=== PATIENT | male | born 1950 | race American Indian/Alaskan Native ===

== ENCOUNTER 2018-02-23 10:59 | Emergency (ER) | payer OTHER ==
[~2018-02-23] VITALS: Ht 180.3 cm; Wt 81.7 kg
[~2018-02-23 10:59] MED LIST: ADULT LOW DOSE81 MG; CATAPRES0.2 MG; FOLIC ACID1 MG; HYDROCHLOROTHIA25 MG; MAGNESIUM400 MG; MELOXICAM7.5 MG PO; NORCO 10-325 T1 EACH PO; NORCO 5-325 TA1 EACH PO; OMEPRAZOLE20 MG; PRINIVIL20 MG PO; PROVENTIL HFA6.7 GM INH; VITAMIN D31000 UNIT; ZITHROMAX250 MG PO
--- OUTSIDE RECORDS SUMMARY | 2018-02-23 11:04 | XMS ---
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 [place] VISIT COUNT (12 MO.) 1 [facility] Alessandra Bell [address] [place] [address] TOTAL 3 NOTE: Visits indicate total known visits. 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
== END 2018-02-23 12:52 | disposition home or self-care (01) ==
LOC: ED 10:59
DX: M54.5 Low back pain (principal); R63.4 Abnormal weight loss; I10 Essential (primary) hypertension; F17.200 Nicotine dependence, unspecified, uncomplicated; Z79.899 Other long term (current) drug therapy; Z79.82 Long term (current) use of aspirin
CPT/HCPCS: 71046; 80053; 81001; 83690; 85025; 99284-25

== ENCOUNTER 2019-09-03 11:23 | Emergency (ER) | payer OTHER ==
[~2019-09-03] VITALS: Ht 180.3 cm; Wt 81.7 kg
--- OUTSIDE RECORDS SUMMARY | ~2019-09-03 | XMS | Encounter Summary ---
Demographics + + + | Address | [address] | | | [place] [address] | + + + | Home Phone | | + + + | Preferred Language | Unknown | + + + | Marital Status | | + + + | Evangelical Affiliation | Unknown | + + + | Race | Unknown | + + + | Ethnic Group | Unknown | + + + Author + + + | Author | [facility] | | | and [place] | + + + | Organization | [facility] | | | and [place] | + + + | Address | Unknown | + + + | Phone | Unavailable | + + + Support + + +---------+ + | Name | Relationship | Address | Phone | + + +---------+ + | Natalya Major | ECON | Unknown | | + + +---------+ + Care Team Providers + +------+ + | Care Tube Dispatcher Name | Role | Phone | + +------+ + | Dacia Johnson MD | PCP | | + +------+ + Reason for Referral Diagnostic/Screening (Routine) +--------+--------+ + + + + | Status | Reason | Specialty | Diagnoses / | Referred By | Referred To | | | | | Procedures | Contact | Contact | +--------+--------+ + + + + | Closed | | Radiology | Diagnoses | [place], | [address] | | | | | LUQ | MD Doni | [address] | | | | | abdominal | [address] | [place], | | | | | pain | [address] | [place] [address] | | | | | Procedures | [place], [place] | Phone: | | | | | CT Abdomen | [address] | [phone] | | | | | Pelvis w | Phone: | Fax: | | | | | Contrast | [phone] | [phone] | | | | | CH[address] CT | Fax: | | | | | | SCAN,ABDOMEN | [phone] | | | | | | AND | | | | | | | PELVIS,W | | | | | | | CONTRAST | | | +--------+--------+ + + + + Reason for Visit Diagnostic/Screening (Routine) +--------+--------+ + + + + | Status | Reason | Specialty | Diagnoses / | Referred By | Referred To | | | | | Procedures | Contact | Contact | +--------+--------+ + + + + | Closed | | Radiology | Diagnoses | [place], | [address] | | | | | LUQ | MD Doni | [address] | | | | | abdominal | [address] | [place], | | | | | pain | [address] | [place] [address] | | | | | Procedures | [place], [place] | Phone: | | | | | CT Abdomen | [address] | [phone] | | | | | Pelvis w | Phone: | Fax: | | | | | Contrast | [phone] | [phone] | | | | | CHG CT | Fax: | | | | | | SCAN,ABDOMEN | [phone] | | | | | | AND | | | | | | | PELVIS,W | | | | | | | CONTRAST | | | +--------+--------+ + + + + Encounter Details +--------+ + + + + | Date | Type | Department | Care Team | Description | +--------+ + + + + | 11/17/ | Hospital | [facility] | Doni Mclaughlin MD | LUQ abdominal pain | | 2019 | Encounter | MED CTR [address] | [address] | | | | | [place], | [place], [place] | | | | | [place] [address] | [address] | | | | | [phone] | | | | | | | | +--------+ + + + + Social History + + + +--------+------+ | Tobacco Use | Types | Packs/Day | Years | Date | | | | | Used | | + + + +--------+------+ | Current Every Day | Cigarettes | 0.5 | | | | Smoker | | | | | + + + +--------+------+ + +---+---+---+ | Smokeless Tobacco: | | | | | Never Used | | | | + +---+---+---+ + + +---------+ + | Alcohol Use | Drinks/Week | oz/Week | Comments | + + +---------+ + | Yes | 2 Cans of beer 7 | 9.0 | sometimes at night | | | Glasses of wine | | | + + +---------+ + + + + | Sex Assigned at | Date Recorded | | | | + + + | Not on file | | + + + documented as of this encounter Medications at Time of Discharge + + + +---------+--------+ + | Medication | Sig | Dispensed | Refills | Start | End Date | | | | | | Date | | + + + +---------+--------+ + | cholecalciferol | Take 1,000 Units by | | 0 | | | | (VITAMIN D-3) 1,000 | mouth Daily. | | | | | | units tablet | | | | | | + + + +---------+--------+ + | folic acid 1 mg | Take 1 mg by mouth | | 0 | | | | tablet | Daily. | | | | | + + + +---------+--------+ + | | Take 12.5 mg by | | 0 | | | | hydroCHLOROthiazide | mouth Daily. | | | | | | (HYDRODIURIL) 12.5 | | | | | | | MG tablet | | | | | | + + + +---------+--------+ + | lisinopril | Take 10 mg by mouth | | 0 | | | | (PRINIVIL, ZESTRIL) | Daily. | | | | | | 5 mg tablet | | | | | | + + + +---------+--------+ + | MAGNESIUM OXIDE PO | Take 420 mg by mouth | | 0 | | | | | Daily. | | | | | + + + +---------+--------+ + | omeprazole | Take 20 mg by mouth | | 0 | | | | (PRILOSEC) 20 mg | every morning | | | | | | capsule | (before breakfast). | | | | | + + + +---------+--------+ + | spironolactone | Take 25 mg by mouth | | 0 | | | | (ALDACTONE) 25 mg | Daily. | | | | | | tablet | | | | | | + + + +---------+--------+ + documented as of this encounter Miscellaneous Notes Result QuickNote - Doni Mclaughlin MD - 11/17/2018 2:48 PM PDTPlease call patient or guard nicole with results that CT scan revealed no mass or evidence of malignancy or abdominal wall h ernia. There was evidence of prior left rib fracture which may be contributing to LUQ abdominal pa in. EGD and cscope last year did not reveal a cause of LUQ abdominal pain. He can f/u in GI clinic if pain persists or worsens. Doni Mclaughlin MD docum ented in this encounter Plan of Treatment Not on filedocumented as of this encounter Procedures + +--------+ + + + | Procedure Name | Priori | Date/Time | Associated Diagnosis | Comments | | | ty | | | | + +--------+ + + + | CT ABDOMEN PELVIS W | Routin | 11/17/2018 | LUQ abdominal pain | Results for this | | CONTRAST | e | 10:43 AM | | procedure are in the | | | | PDT | | results section. | + +--------+ + + + documented in this encounter Results CT Abdomen Pelvis w Contrast (11/17/2018 10:43 AM PDT) + + | Specimen | + + | | + + + +-------- -------+ | Narrative | Perform ed At | + +-------- -------+ | EXAM: CT | [facility] | | ABDOMEN PELVIS W CONTRAST dated 11/17/2018 10:43 AM HISTORY:LUQ | | | abdominal pain; rule out left sided upper quadrant hernia Comparison: | | | 07/01/2017 TECHNIQUE: Imaging is performed from the lung bases through | | | the pubic symphysisfollowing the uneventful intravenous administration | | | of 85 mL Omnipaque 350. Automated exposure control, Adjustment of mA | | | and/or kV according to patientsize, and use of iterative | | | reconstruction technique are applied to this exam. DOSE: DLP 478.05 | | | mGy-cm FINDINGS: LUNG BASES: The lung bases are clear. There is | | | no visible pleural effusion orpneumothorax. There is no significant | | | pericardial thickening. There is a smallhiatal hernia. LIVER: The | | | liver is unremarkable in attenuation and enhancement. There are | | | nofocal liver lesions. GALLBLADDER: The gallbladder is not distended. | | | There are no calcifiedgallstones. No visible biliary ductal | | | dilatation. SPLEEN: The spleen is unremarkable. There is no | | | splenomegaly. PANCREAS: The pancreas is unremarkable. The pancreatic | | | duct is not dilated. ADRENALS: No adrenal enlargement. No adrenal | | | masses. KIDNEYS: The kidneys are symmetrically enhancing. There are | | | no focal renallesions. There is no nephrolithiasis. There is no | | | obstructive uropathy. BOWEL: Mild asymmetric thickening of the gastric | | | wall along the greatercurvature. This is probably due to | | | underdistention. There is no evidence forgastrointestinal tract | | | obstruction. There is no evidence for appendicitis. There are a few | | | diverticula. VASCULATURE AND LYMPH NODES: There is no aneurysmal | | | dilatation of the abdominalaorta. There is no pelvic or abdominal | | | lymphadenopathy. There is diffuseatherosclerotic irregularity. | | | This does result in probably moderate narrowingin the left external | | | iliac and mild to moderate on the right. BLADDER: The bladder is | | | unremarkable. BONES: There are no acute osseous abnormalities. There | | | are no suspicious lyticor blastic bone lesions. Healed rib | | | fractures. There is a displaced fracturethrough the costochondral | | | cartilage of the left eighth rib. OTHER: There is no free fluid. | | | There is no free air. IMPRESSION - No abdominal wall hernias. | | | Displaced fracture through the costochondral cartilage of the left | | | eighth rib. This is likely the sequelae of a remote injury. Dictated | | | and Signed by: Antwon Lock MD Electronically signed: 11/17/2018 | | | 12:46 PM | | |There are a few diverticula. | | | | | |VASCULATURE AND LYMPH NODES: There is no aneurysmal dilatation of the abdominal | | |aorta. There is no pelvic or abdominal lymphadenopathy. There is diffuse | | |atherosclerotic irregularity. This does result in probably moderate narrowing | | |in the left external iliac and mild to moderate on the right. | | | | | |BLADDER: The bladder is unremarkable. | | | | | |BONES: There are no acute osseous abnormalities. There are no suspicious lytic | | |or blastic bone lesions. Healed rib fractures. There is a displaced fracture | | |through the costochondral cartilage of the left eighth rib. | | | | | |OTHER: There is no free fluid. There is no free air. | | | | | |IMPRESSION - | | | | | |No abdominal wall hernias. | | | | | |Displaced fracture through the costochondral cartilage of the left eighth rib. | | |This is likely the sequelae of a remote injury. | | | | | |Dictated and Signed by: Antwon Lock MD | | | Electronically signed: 11/17/2018 12:46 PM | | | | | + +-------- -------+ + + | Procedure Note | + + | Sony, Rad Results In - 11/17/2018 12:50 PM PDT EXAM: CT ABDOMEN PELVIS W CONTRAST | | dated 11/17/2018 10:43 AMHISTORY:LUQ abdominal pain; rule out left sided upper quadrant | | herniaComparison: 07/01/2017TECHNIQUE: Imaging is performed from the lung bases through | | the pubic symphysisfollowing the uneventful intravenous administration of 85 mL | | Omnipaque 350. Automated exposure control, Adjustment of mA and/or kV according to | | patientsize, and use of iterative reconstruction technique are applied to this | | exam.DOSE: DLP 478.05 mGy-cmFINDINGS: LUNG BASES: The lung bases are clear. There is | | no visible pleural effusion orpneumothorax. There is no significant pericardial | | thickening. There is a smallhiatal hernia.LIVER: The liver is unremarkable in | | attenuation and enhancement. There are nofocal liver lesions.GALLBLADDER: The | | gallbladder is not distended. There are no calcifiedgallstones. No visible biliary | | ductal dilatation.SPLEEN: The spleen is unremarkable. There is no | | splenomegaly.PANCREAS: The pancreas is unremarkable. The pancreatic duct is not | | dilated.ADRENALS: No adrenal enlargement. No adrenal masses.KIDNEYS: The kidneys are | | symmetrically enhancing. There are no focal renallesions. There is no nephrolithiasis. | | There is no obstructive uropathy.BOWEL: Mild asymmetric thickening of the gastric wall | | along the greatercurvature. This is probably due to underdistention. There is no | | evidence forgastrointestinal tract obstruction. There is no evidence for appendicitis. | | There are a few diverticula.VASCULATURE AND LYMPH NODES: There is no aneurysmal | | dilatation of the abdominalaorta. There is no pelvic or abdominal lymphadenopathy. | | There is diffuseatherosclerotic irregularity. This does result in probably moderate | | narrowingin the left external iliac and mild to moderate on the right.BLADDER: The | | bladder is unremarkable.BONES: There are no acute osseous abnormalities. There are no | | suspicious lyticor blastic bone lesions. Healed rib fractures. There is a displaced | | fracturethrough the costochondral cartilage of the left eighth rib.OTHER: There is no | | free fluid. There is no free air.IMPRESSION - No abdominal wall hernias.Displaced | | fracture through the costochondral cartilage of the left eighth rib. This is likely the | | sequelae of a remote injury.Dictated and Signed by: Antwon Lock MD Electronically | | signed: 11/17/2018 12:46 PM | |ADRENALS: No adrenal enlargement. No adrenal masses. | | | |KIDNEYS: The kidneys are symmetrically enhancing. There are no focal renal | |lesions. There is no nephrolithiasis. There is no obstructive uropathy. | | | |BOWEL: Mild asymmetric thickening of the gastric wall along the greater | |curvature. This is probably due to underdistention. There is no evidence for | |gastrointestinal tract obstruction. There is no evidence for appendicitis. | |There are a few diverticula. | | | |VASCULATURE AND LYMPH NODES: There is no aneurysmal dilatation of the abdominal | |aorta. There is no pelvic or abdominal lymphadenopathy. There is diffuse | |atherosclerotic irregularity. This does result in probably moderate narrowing | |in the left external iliac and mild to moderate on the right. | | | |BLADDER: The bladder is unremarkable. | | | |BONES: There are no acute osseous abnormalities. There are no suspicious lytic | |or blastic bone lesions. Healed rib fractures. There is a displaced fracture | |through the costochondral cartilage of the left eighth rib. | | | |OTHER: There is no free fluid. There is no free air. | | | |IMPRESSION - | | | |No abdominal wall hernias. | | | |Displaced fracture through the costochondral cartilage of the left eighth rib. | |This is likely the sequelae of a remote injury. | | | |Dictated and Signed by: Antwon Lock MD | | Electronically signed: 11/17/2018 12:46 PM | + + + +---------+ + + | Performing | Address | City/State/Zipcode | Phone Number | | Organization | | | | + +---------+ + + | [facility] | | | | + +---------+ + + documented in this encounter Visit Diagnoses + + | Diagnosis | + + | LUQ abdominal pain Abdominal pain, left upper quadrant | + + documented in this encounter Administered Medications + +--------+ +--------+------+------+ | Medication Order | MAR | Action | Dose | Rate | Site | | | Action | Date | | | | + +--------+ +--------+------+------+ | iohexol (OMNIPAQUE 350) 350 | Given | 11/18/19 | 85 mLs | | | | mg/mL injection 85 mL 85 mL, | | 19 10:44 | | | | | Intravenous, ONCE PRN, Other, | | AM PDT | | | | | Starting 11/17/18 at 1043, For | | | | | | | 1 dose, Cat Scanner | | | | | | + +--------+ +--------+------+------+ +---+---+ | | | +---+---+ documented in this encounter"
--- OUTSIDE RECORDS SUMMARY | ~2019-09-03 | XMS | Encounter Summary ---
Demographics + + + | Address | [address] | | | [place] [address] | + + + | Home Phone | | + + + | Preferred Language | Unknown | + + + | Marital Status | | + + + | Yazidi Affiliation | Unknown | + + + | Race | Unknown | + + + | Ethnic Group | Unknown | + + + Author + + + | Author | [facility] | | | and [place] | + + + | Organization | [facility] | | | and [place] | [...] Team Providers + +------+ + | Care Rrt Name | Role | Phone | + +------+ + | Dacia Johnson MD | PCP | | + +------+ + Reason for Visit +---------+--------+ + | Reason | Onset | Comments | | | Date | | +---------+--------+ + | Results | 11/17/ | | | | 2018 | | +---------+--------+ + Encounter Details +--------+ + + + + | Date | Type | Department | Care Team | Description | +--------+ + + + + | 11/17/ | Telephone | [facility] | Doni Mclaughlin MD | Results | | 2019 | | GASTROENTEROLOGY | [address] | | | | | [address] [facility] | [place], [place] | | | | | [address] [place] | [address] | | | | | [address] | [phone] | | | | | [phone] | | | +--------+ + + + [...] + + documented as of this encounter Miscellaneous Notes Telephone Encounter - Jessica Zavala RN - 11/17/2018 4:46 PM PDTCalled and relayed mess age per Dr. Mclaughlin to , Micheline. Okay per . elephone Encounter - Jessica Zavala RN - 11/17/2018 4:43 P M PDT----- Message from Doni Mclaughlin MD sent at 11/17/2018 14:48 PDT ----- Please call patient or guardian with results that CT scan revealed no mass or evidence of m alignancy or abdominal wall hernia. There was evidence of prior left rib fracture which may be contributing to LUQ abdominal pa in. EGD and cscope last year did not reveal a cause of LUQ abdominal pain. He can f/u in GI clinic if pain persists or worsens. Doni Mclaughlin MD doc umented in this encounter Plan of Treatment Not on filedocumented as of this encounter Visit Diagnoses Not on filedocumented in this encounter"
--- OUTSIDE RECORDS SUMMARY | ~2019-09-03 | XMS | Encounter Summary ---
Demographics + + + | Address | [address] | | | [place] [address] | + + + | Home Phone | | + + + | Preferred Language | Unknown | + + + | Marital Status | | + + + | Mormon Affiliation | Unknown | + + + | Race | Unknown | + + + | Ethnic Group | Unknown | + + + Author + + + | Author | [facility] | | | and [place] | + + + | Organization | [facility] | | | and [place] | [...] Team Providers + +------+ + | Care Computer Science Intern Name | Role | Phone | + +------+ + | Dacia Johnson MD | PCP | | + +------+ + Encounter Details +--------+ + + + + | Date | Type | Department | Care Team | Description | +--------+ + + + + | 09/01/ | Imaging | [facility] | Provider, | | | 2019 | Exam | MED CTR EXTERNAL | [address] | | | | | IMAGING [address] | [address] [place] | | | | | [address] | [place] [address] | | | | | [place] [address] | | | | | | [phone] | | | +--------+ + + + + Social History + +-------+ +--------+------+ | Tobacco Use | Types | Packs/Day | Years | Date | | | | | Used | | + +-------+ +--------+------+ | Never Assessed | | | | | + +-------+ +--------+------+ + + + | Sex Assigned at | Date Recorded | | | | + + + | Not on file | | + + + documented as of this encounter Plan of Treatment Not on filedocumented as of this encounter Procedures + +--------+ + + + | Procedure Name | Priori | Date/Time | Associated Diagnosis | Comments | | | ty | | | | + +--------+ + + + | CT ABDOMEN PELVIS W | Routin | 07/01/2017 | | Results for this | | CONTRAST | e | 12:00 AM | | procedure are in the | | | | PDT | | results section. | + +--------+ + + + documented in this encounter Results CT Abdomen Pelvis w Contrast (07/01/2017 12:00 AM PDT) + + | Specimen | + + | | + + + + + | Narrative | Performed At | + + + | External films for comparison only | [facility] | | | | | No results will be in the chart. | | + + + + +---------+ + + | Performing | Address | City/State/Zipcode | Phone Number | | Organization | | | | + +---------+ + + | [facility] | | | | + +---------+ + + documented in this encounter Visit Diagnoses Not on filedocumented in this encounter"
--- OUTSIDE RECORDS SUMMARY | ~2019-09-03 | XMS | Encounter Summary ---
Demographics + + + | Address | [address] | | | [place] [address] | + + + | Home Phone | | + + + | Preferred Language | Unknown | + + + | Marital Status | | + + + | Voodoo Affiliation | Unknown | + + + | Race | Unknown | + + + | Ethnic Group | Unknown | + + + Author + + + | Author | [facility] | | | and [place] | + + + | Organization | [facility] | | | and [place] [...] Team Providers + +------+ + | Care Firer Locomotive Crane Name | Role | Phone | + +------+ + PCP | Unavailable | + +------+ + Encounter Details +--------+ + + + + | Date | Type | Department | Care Team | Description | +--------+ + + + + | 02/12/ | Hospital | [facility] | | | | 1998 | Encounter | MED CTR XRAY [address] | | | | | | [place] | | | | | | [place] [address] | | | | | | [phone] | | | +--------+ + + + [...]
--- OUTSIDE RECORDS SUMMARY | ~2019-09-03 | XMS | Encounter Summary ---
Demographics + + + | Address | [address] | | | [place] [address] | + + + | Home Phone | | + + + | Preferred Language | Unknown | + + + | Marital Status | | + + + | Scientology Affiliation | Unknown | + + + | Race | Unknown | + + + | Ethnic Group | Unknown | + + + Author + + + | Author | [facility] | | | and [place] | + + + | Organization | [facility] | | | and [place] | [...] Team Providers + +------+ + | Care Audio Visual Equipment Rental Clerk Name | Role | Phone | + +------+ + | Unknown, Physician | PCP | | + +------+ + Encounter Details +--------+ + + + + | Date | Type | Department | Care Team | Description | +--------+ + + + + | 02/26/ | Imaging | [facility] | Provider, | | | 2019 | Exam | MED [facility] EXTERNAL | [address] | | | | | IMAGING [address] | [address] | | | | | [address] | [place] [address] | | | | | [place] [address] | | | | | | [phone] | | | +--------+ + + + + Social History + + + +--------+------+ | Tobacco Use | Types | Packs/Day | Years | Date | | | | | Used | | + + + +--------+------+ | Current Every Day | Cigarettes | | | | | Smoker | | | | | + + + +--------+------+ + +---+---+---+ | Smokeless Tobacco: | | | | | Never Used | | | | + +---+---+---+ + + +---------+ + | Alcohol Use | Drinks/Week | oz/Week | Comments | + + +---------+ + | Yes | 2 Cans of anna | 2.0 | sometimes at night | + + +---------+ + + + [...] CT ABDOMEN PELVIS W | Routin | 07/31/2018 | | Results for this | | WO CONTRAST | e | 12:00 AM | | procedure are in the | | | | PDT | | results section. | + +--------+ + + + documented in this encounter Results CT Abdomen Pelvis w wo Contrast (07/31/2018 12:00 AM PDT) + + | Specimen [...]
--- OUTSIDE RECORDS SUMMARY | ~2019-09-03 | XMS | Encounter Summary ---
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 [facility] | | | Lymphocytes | | | [facility] | | | | | | [facility] | | | | | | CENTER - | | | | | | LABORATORY | | + + + + + + | Absolute | 0.7 | 0.0 - 1.0 K/uL | [facility] | | | Monocytes | | | [facility] | | | | | | MEDICAL | | | | | | CENTER - | | | | | | LABORATORY | | + + + + + + | Absolute | 0.2 | 0.0 - 0.4 K/uL | [facility] | | | Eosinophils | | | [facility] | | | | | | [facility] | | | | | | CENTER - | | | | | | LABORATORY | | + + + + + + | Absolute | 0.0 | 0.0 - 0.1 K/uL | [facility] | | | Basophils | | | [facility] | | | | | | [facility] | | | | | | CENTER - | | | | | | LABORATORY | | + + + + + + + + | Specimen | + + | | + + + + + + + | Performing | Address | City/State/Zipcode | Phone Number | | Organization | | | | + + + + + | [facility] | [address] | [place] | [phone] | | [facility] | | [address] | | | - LABORATORY | | | | + + + + + | [facility] | [address] | [place], [place] | | | [facility] | | [address], [facility] | | | - LABORATORY | | | | + + + + + Culture, MRSA (10/23/2010 6:01 PM PDT) + + | Specimen | + + | | + + + + + + + | Performing | Address | City/State/Zipcode | Phone Number | | Organization | | | | + + + + + | [facility] | [address] | [place], [place] | [phone] | | [facility] | | [address] | | | - LABORATORY | | | | + + + + + Urinalysis, Microscopic Only, with Culture if Indicated (10/23/2010 2:18 PM PDT) + +--------+ + + + | Component | Value | Ref Range | Performed | Pathologist | | | | | At | Signature | + +--------+ + + + | COLLECTION | . | | [facility] | | | METHOD 1 | | | [facility] | | | | | | MEDICAL | | | | | | CENTER - | | | | | | LABORATORY | | + +--------+ + + + | White Blood | 2-4 | 0 - 1 /hpf | [facility] | | | Cells, | | | [facility] | | | Urine | | | MEDICAL | | | | | | CENTER - | | | | | | LABORATORY | | + +--------+ + + + | Red Blood | NONE | 0 - 4 /hpf | [facility] | | | Cells, | | | [facility] | | | Urine | | | MEDICAL | | | | | | CENTER - | | | | | | LABORATORY | | + +--------+ + + + | Squamous | NONE | FEW /hps | [facility] | | | Epithelial | | | [facility] | | | Cells, | | | MEDICAL | | | Urine | | | CENTER - | | | | | | LABORATORY | | + +--------+ + + + | Bacteria, | RARE | NONE /hpf | [facility] | | | Urine | | | [facility] | | | | | | MEDICAL | | | | | | CENTER - | | | | | | LABORATORY | | + +--------+ + + + | Amorphous | SLIGHT | /hpf | [facility] | | | Crystals, | | | [facility] | | | Urine | | | MEDICAL | | | | | | CENTER - | | | | | | LABORATORY | | + +--------+ + + + | Hyaline | MANY | 0 - 1 /lpf | [facility] | | | Casts, | | | [facility] | | | Urine | | | MEDICAL | | | | | | CENTER - | | | | | | LABORATORY | | + +--------+ + + + | Culture | NO | | [facility] | | | Indicated | | | [facility] | | | | | | MEDICAL | | | | | | CENTER - | | | | | | LABORATORY | | + +--------+ + + + + + | Specimen | + + | | + + + + + + + | Performing | Address | City/State/Zipcode | Phone Number | | Organization | | | | + + + + + | [facility] | [address] | [place] | [phone] | | [facility] | | [address] | | | - LABORATORY | | | | + + + + + | [facility] | [address] | [place] | | | [facility] | | [address], [facility] | | | - LABORATORY | | | | + + + + + Type and Screen (10/23/2010 12:30 PM PDT) + + + + + + | Component | Value | Ref Range | Performed | Pathologist | | | | | At | Signature | + + + + + + | ABO | BP | | [facility] | | | | | | [facility] | | | | | | MEDICAL | | | | | | CENTER - | | | | | | LABORATORY | | + + + + + + | Antibody | NEGATIVE | | [facility] | | | Screen | | | [facility] | | | | | | MEDICAL | | | | | | CENTER - | | | | | | LABORATORY | | + + + + + + + + | Specimen | + + | | + + + + + + + | Performing | Address | City/State/Zipcode | Phone Number | | Organization | | | | + + + + + | [facility] | [address] | [place], [place] | [phone] | | [facility] | | [address] | | | - LABORATORY | | | | + + + + + | [facility] | [address] | [place], [place] | | | [facility] | | [address] [place] [address] | | | - LABORATORY | | | | + + + + + Rule Out Myocardial (10/23/2010 12:18 PM PDT) + + + + + + | Component | Value | Ref Range | Performed | Pathologist | | | | | At | Signature | + + + + + + | CK TOTAL | 100 | 22 - 269 IU/L | [facility] | | | | | | [facility] | | | | | | MEDICAL | | | | | | CENTER - | | | | | | LABORATORY | | + + + + + + | CK-MB | 2.1Comment: Testing | 0.6 - 6.3 ng/mL | [facility] | | | | performed on the [employer] | | [facility] | | | | [employer] | | MEDICAL | | | | Analyzer. | | CENTER - | | | | | | LABORATORY | | + + + + + + | Troponin I | 0.03Comment: Reference | <0.10 ng/mL | [facility] | | | | Ranges: | | [facility] | | | | 0.00-0.09 = NORMAL | | MEDICAL | | | | 0.10-0.50 | | CENTER - | | | | = | | LABORATORY | | | | INDETERMINATE-SUSPICIOUS | | | | | | FOR | | | | | | | | | | | | NON-INFARCT | | | | | | MYOCARDIAL INJURY | | | | | | >0.50 = | | | | | | CONSISTENT WITH | | | | | | MYOCARDIAL INFARCT | | | | | | Results in the | | | | | | Indeterminate range can | | | | | | reflect a pre-infarct | | | | | | acute coronary | | | | | | syndrome, but can also | | | | | | reflect myocardial | | | | | | necrosis or injury | | | | | | that is not due to | | | | | | coronary artery | | | | | | disease. Some of these | | | | | | causes are sepsis, | | | | | | hypocolemia, atrial | | | | | | fibrillation, heart | | | | | | failure, pulmonary | | | | | | embolism, myocarditis, | | | | | | myocardial contusion, | | | | | | and renal failure. | | | | | | Testing performed on | | | | | | the [employer] | | | | | | Access Analyzer. | | | | + + + + + + + + | Specimen | + + | | + + + + + + + | Performing | Address | City/State/Zipcode | Phone Number | | Organization | | | | + + + + + | [facility] | [address] | [place] | [phone] | | [facility] | | [address] | | | - LABORATORY | | | | + + + + + | [facility] | [address] | [place], [place] | | | [facility] | | [address] [place] [address] | | | - LABORATORY | | | | + + + + + Comprehensive Metabolic Panel (10/23/2010 12:18 PM PDT) + + + + + + | Component | Value | Ref Range | Performed | Pathologist | | | | | At | Signature | + + + + + + | Glucose | 105 | 70 - 109 mg/dL | [facility] | | | | | | [facility] | | | | | | MEDICAL | | | | | | CENTER - | | | | | | LABORATORY | | + + + + + + | Calcium | 9.5 | 8.3 - 10.5 | [facility] | | | | | mg/dL | [facility] | | | | | | MEDICAL | | | | | | CENTER - | | | | | | LABORATORY | | + + + + + + | Alkaline | 83 | 40 - 110 IU/L | [facility] | | | Phosphatase | | | [facility] | | | | | | MEDICAL | | | | | | CENTER - | | | | | | LABORATORY | | + + + + + + | AST | 53 (H) | 10 - 42 IU/L | [facility] | | | | | | [facility] | | | | | | MEDICAL | | | | | | CENTER - | | | | | | LABORATORY | | + + + + + + | ALT | 61 (H) | 6 - 45 IU/L | [facility] | | | | | | [facility] | | | | | | MEDICAL | | | | | | CENTER - | | | | | | LABORATORY | | + + + + + + | Bilirubin | 0.5 | 0.2 - 1.0 mg/dL | [facility] | | | Total | | | [facility] | | | | | | MEDICAL | | | | | | CENTER - | | | | | | LABORATORY | | + + + + + + | Total | 7.5 | 6.0 - 7.8 gm/dL | [facility] | | | Protein | | | [facility] | | | | | | MEDICAL | | | | | | CENTER - | | | | | | LABORATORY | | + + + + + + | Albumin | 4.0 | 3.2 - 5.0 gm/dL | [facility] | | | | | | [facility] | | | | | | MEDICAL | | | | | | CENTER - | | | | | | LABORATORY | | + + + + + + | BUN | 38 (H) | 7 - 18 mg/dL | [facility] | | | | | | [facility] | | | | | | MEDICAL | | | | | | CENTER - | | | | | | LABORATORY | | + + + + + + | Creatinine | 2.82 (H) | 0.60 - 1.30 | [facility] | | | | | mg/dL | [facility] | | | | | | MEDICAL | | | | | | CENTER - | | | | | | LABORATORY | | + + + + + + | Estimated | 23 (L)Comment: For | >60 mL/min/A | [facility] | | | GFR | -Americans, | | [facility] | | | | please multiply the | | MEDICAL | | | | result by 1.210 | | CENTER - | | | | This is an estimated | | LABORATORY | | | | GFR and is based on | | | | | | a standard body | | | | | | mass and serum | | | | | | creatinine | | | | + + + + + + | BUN/Creatin | 13.5 | 12 - 20 | [facility] | | | ine Ratio | | | [facility] | | | | | | MEDICAL | | | | | | CENTER - | | | | | | LABORATORY | | + + + + + + | Na | 133 (L) | 136 - 149 mEq/L | [facility] | | | | | | [facility] | | | | | | MEDICAL | | | | | | CENTER - | | | | | | LABORATORY | | + + + + + + | K | 3.8 | 3.5 - 5.1 mEq/l | [facility] | | | | | | [facility] | | | | | | MEDICAL | | | | | | CENTER - | | | | | | LABORATORY | | + + + + + + | Cl | 97 (L) | 98 - 109 mEq/l | [facility] | | | | | | [facility] | | | | | | MEDICAL | | | | | | CENTER - | | | | | | LABORATORY | | + + + + + + | CO2 | 26 | 24 - 31 mEq/L | [facility] | | | | | | [facility] | | | | | | MEDICAL | | | | | | CENTER - | | | | | | LABORATORY | | + + + + + + | Anion Gap | 13.8 | 6.0 - 17.0 | [facility] | | | | | | [facility] | | | | | | MEDICAL | | | | | | CENTER - | | | | | | LABORATORY | | + + + + + + + + | Specimen | + + | | + + + + + + + | Performing | Address | City/State/Zipcode | Phone Number | | Organization | | | | + + + + + | [facility] | [address] | [place], [place] | [phone] | | [facility] | | [address] | | | - LABORATORY | | | | + + + + + | [facility] | [address] | [place], [place] | | | [facility] | | [address], [facility] | | | - LABORATORY | | | | + + + + + Magnesium (10/23/2010 12:18 PM PDT) + +-------+ + + + | Component | Value | Ref Range | Performed | Pathologist | | | | | At | Signature | + +-------+ + + + | Magnesium | 1.9 | 1.8 - 2.5 mg/dL | [facility] | | | | | | [facility] | | | | | | MEDICAL | | | | | | CENTER - | | | | | | LABORATORY | | + +-------+ + + + + + | Specimen | + + | | + + + + + + + | Performing | Address | City/State/Zipcode | Phone Number | | Organization | | | | + + + + + | [facility] | [address] | [place] | [phone] | | [facility] | | [address] | | | - LABORATORY | | | | + + + + + | [facility] | [address] | [place] | | | [facility] | | [address] | | | - LABORATORY | | | | + + + + + Phosphorus (10/23/2010 12:18 PM PDT) + +---------+ + + + | Component | Value | Ref Range | Performed | Pathologist | | | | | At | Signature | + +---------+ + + + | Phosphorus | 5.1 (H) | 2.5 - 4.6 mg/dL | [facility] | | | | | | [facility] | | | | | | MEDICAL | | | | | | CENTER - | | | | | | LABORATORY | | + +---------+ + + + + + | Specimen | + + | | + + + + + + + | Performing | Address | City/State/Zipcode | Phone Number | | Organization | | | | + + + + + | [facility] | [address] | [place] | [phone] | | [facility] | | [address] | | | - LABORATORY | | | | + + + + + | [facility] | [address] | [place] | | | [facility] | | [address], [facility] | | | - LABORATORY | | | | + + + + + CBC with Differential (10/23/2010 12:17 PM PDT) + + + + + + | Component | Value | Ref Range | Performed | Pathologist | | | | | At | Signature | + + + + + + | White Blood | 8.4 | 4.0 - 11.0 K/uL | [facility] | | | Cells | | | [facility] | | | | | | MEDICAL | | | | | | CENTER - | | | | | | LABORATORY | | + + + + + + | Red Blood | 3.73 (L) | 4.30 - 5.70 | [facility] | | | Cells | | M/uL | [facility] | | | | | | MEDICAL | | | | | | CENTER - | | | | | | LABORATORY | | + + + + + + | Hemoglobin | 11.5 (L) | 13.5 - 18.0 | [facility] | | | | | gm/dL | [facility] | | | | | | MEDICAL | | | | | | CENTER - | | | | | | LABORATORY | | + + + + + + | Hematocrit | 34.4 (L) | 40.0 - 51.0 % | [facility] | | | | | | [facility] | | | | | | MEDICAL | | | | | | CENTER - | | | | | | LABORATORY | | + + + + + + | MCV | 92.1 | 83.0 - 101.0 fL | [facility] | | | | | | [facility] | | | | | | MEDICAL | | | | | | CENTER - | | | | | | LABORATORY | | + + + + + + | MCH | 30.8 | 28.0 - 35.0 pg | [facility] | | | | | | [facility] | | | | | | MEDICAL | | | | | | CENTER - | | | | | | LABORATORY | | + + + + + + | MCHC | 33.4 | 32.0 - 36.0 | [facility] | | | | | g/dL | [facility] | | | | | | MEDICAL | | | | | | CENTER - | | | | | | LABORATORY | | + + + + + + | RDW-CV | 16.7 (H) | <15.0 % | [facility] | | | | | | [facility] | | | | | | MEDICAL | | | | | | CENTER - | | | | | | LABORATORY | | + + + + + + | Platelet | 354 | 140 - 440 K/uL | [facility] | | | Count | | | [facility] | | | | | | MEDICAL | | | | | | CENTER - | | | | | | LABORATORY | | + + + + + + | % | 58.0 | 45 - 75 % | [facility] | | | Neutrophils | | | [facility] | | | | | | MEDICAL | | | | | | CENTER - | | | | | | LABORATORY | | + + + + + + | % | 33.8 | 20 - 45 % | [facility] | | | Lymphocytes | | | [facility] | | | | | | MEDICAL | | | | | | CENTER - | | | | | | LABORATORY | | + + + + + + | % Monocytes | 7.2 | 4 - 12 % | [facility] | | | | | | [facility] | | | | | | MEDICAL | | | | | | CENTER - | | | | | | LABORATORY | | + + + + + + | % | 0.6 | 0 - 5 % | [facility] | | | Eosinophils | | | [facility] | | | | | | MEDICAL | | | | | | CENTER - | | | | | | LABORATORY | | + + + + + + | % Basophils | 0.4 | 0 - 1 % | [facility] | | | | | | [facility] | | | | | | MEDICAL | | | | | | CENTER - | | | | | | LABORATORY | | + + + + + + | Absolute | 4.8 | 1.5 - 6.6 K/uL | [facility] | | | Neutrophils | | | [facility] | | | | | | MEDICAL | | | | | | CENTER - | | | | | | LABORATORY | | + + + + + + | Absolute | 2.8 | 0.6 - 3.2 K/uL | [facility] | | | Lymphocytes | | | [facility] | | | | | | MEDICAL | | | | | | CENTER - | | | | | | LABORATORY | | + + + + + + | Absolute | 0.6 | 0.0 - 1.0 K/uL | [facility] | | | Monocytes | | | [facility] | | | | | | MEDICAL | | | | | | CENTER - | | | | | | LABORATORY | | + + + + + + | Absolute | 0.0 | 0.0 - 0.4 K/uL | [facility] | | | Eosinophils | | | [facility] | | | | | | MEDICAL | | | | | | CENTER - | | | | | | LABORATORY | | + + + + + + | Absolute | 0.0 | 0.0 - 0.1 K/uL | [facility] | | | Basophils | | | [facility] | | | | | | MEDICAL | | | | | | CENTER - | | | | | | LABORATORY | | + + + + + + + + | Specimen | + + | | + + + + + + + | Performing | Address | City/State/Zipcode | Phone Number | | Organization | | | | + + + + + | [facility] | [address] | [place] | [phone] | | [facility] | | [address] | | | - LABORATORY | | | | + + + + + | [facility] | [address] | [place], [place] | | | [facility] | | [address], [facility] | | | - LABORATORY | | | | + + + + + Protime INR (10/23/2010 12:15 PM PDT) + + + + + + | Component | Value | Ref Range | Performed | Pathologist | | | | | At | Signature | + + + + + + | Prothrombin | 12.4 | 11.3 - 13.9 | [facility] | | | Time | | seconds | [facility] | | | | | | MEDICAL | | | | | | CENTER - | | | | | | LABORATORY | | + + + + + + | INR | 0.9Comment: INR: USUAL | 0.9 - 1.1 | [facility] | | | | ORAL ANTICOAGULATION | | [facility] | | | | RANGE | | MEDICAL | | | | 2.0-3.0 | | CENTER - | | | | HIGH LEVEL ORAL | | LABORATORY | | | | ANTICOAGULATION RANGE | | | | | | 2.5-3.5 | | | | + + + + + + + + | Specimen | + + | | + + + + + + + | Performing | Address | City/State/Zipcode | Phone Number | | Organization | | | | + + + + + | [facility] | [address] | [place] | [phone] | | [facility] | | [address] | | | - LABORATORY | | | | + + + + + | [facility] | [address] | [place] | | | [facility] | | [address] | | | - LABORATORY | | | | + + + + + documented in this encounter Visit Diagnoses Not on filedocumented in this encounter
--- OUTSIDE RECORDS SUMMARY | ~2019-09-03 | XMS | Encounter Summary ---
Demographics + + + | Address | [address] | | | [place] [address] | + + + | Home Phone | | + + + | Preferred Language | Unknown | + + + | Marital Status | | + + + | Adventism Affiliation | Unknown | + + + | Race | Unknown | + + + | Ethnic Group | Unknown | + + + Author + + + | Author | [facility] | | | and [place] | + + + | Organization | [facility] | | | and [...] Team Providers + +------+ + | Care News Intern Name | Role | Phone | + +------+ + | Dacia Johnson MD | PCP | | + +------+ + Encounter Details +--------+ + + + + | Date | Type | Department | Care Team | Description | +--------+ + + + + | 07/07/ | Abstract | [facility] | [place], | | | 2017 | | GASTROENTEROLOGY | [address] | | | | | [address] | [place] | | | | | [address] | [place] [address] | | | | | [address] | | | | | | [phone] | | | +--------+ + + + + Social History + +-------+ +--------+------+ | Tobacco Use | Types | Packs/Day | Years | Date | | | | | Used | | + +-------+ +--------+------+ | Never Assessed | | | | | + +-------+ +--------+------+ + + | Comments: Not on File | + + + + + | Sex Assigned at | Date Recorded | | | | + + + | Not on file | | + + + documented as of this encounter Last Filed Vital Signs + + + + + | Vital Sign | Reading | Time Taken | Comments | + + + + + | Blood Pressure | - | - | | + + + + + | Pulse | - | - | | + + + + + | Temperature | - | - | | + + + + + | Respiratory Rate | - | - | | + + + + + | Oxygen Saturation | - | - | | + + + + + | Inhaled Oxygen | - | - | | | Concentration | | | | + + + + + | Weight | 87.1 kg (192 lb) | 07/07/2017 1:51 PM | | | | | PDT | | + + + + + | Height | - | - | | + + + + + | Body Mass Index | - | - | | + + + + + documented in this encounter Plan of Treatment Not on filedocumented as of this encounter Procedures + +--------+ + + + | Procedure Name | Priori | Date/Time | Associated Diagnosis | Comments | | | ty | | | | + +--------+ + + + | EXTERNAL LAB: BUN | Routin | 06/20/2017 | | Results for this | | | e | | | procedure are in the | | | | | | results section. | + +--------+ + + + | EXTERNAL LAB: | Routin | 06/20/2017 | | Results for this | | GLUCOSE | e | | | procedure are in the | | | | | | results section. | + +--------+ + + + | EXTERNAL LAB: PSA | Routin | 06/20/2017 | | Results for this | | | e | | | procedure are in the | | | | | | results section. | + +--------+ + + + | EXTERNAL LAB: ALT | Routin | 06/20/2017 | | Results for this | | | e | | | procedure are in the | | | | | | results section. | + +--------+ + + + | EXTERNAL LAB: AST | Routin | 06/20/2017 | | Results for this | | | e | | | procedure are in the | | | | | | results section. | + +--------+ + + + | EXTERNAL LAB: | Routin | 06/20/2017 | | Results for this | | ALKALINE PHOSPHATASE | e | | | procedure are in the | | | | | | results section. | + +--------+ + + + | EXTERNAL LAB: | Routin | 06/20/2017 | | Results for this | | BILIRUBIN, TOTAL | e | | | procedure are in the | | | | | | results section. | + +--------+ + + + | EXTERNAL LAB: | Routin | 06/20/2017 | | Results for this | | ALBUMIN | e | | | procedure are in the | | | | | | results section. | + +--------+ + + + | EXTERNAL LAB: | Routin | 06/20/2017 | | Results for this | | PROTEIN, TOTAL | e | | | procedure are in the | | | | | | results section. | + +--------+ + + + | EXTERNAL LAB: | Routin | 06/20/2017 | | Results for this | | CALCIUM | e | | | procedure are in the | | | | | | results section. | + +--------+ + + + | EXTERNAL LAB: CARBON | Routin | 06/20/2017 | | Results for this | | DIOXIDE | e | | | procedure are in the | | | | | | results section. | + +--------+ + + + | EXTERNAL LAB: | Routin | 06/20/2017 | | Results for this | | CHLORIDE | e | | | procedure are in the | | | | | | results section. | + +--------+ + + + | EXTERNAL LAB: | Routin | 06/20/2017 | | Results for this | | POTASSIUM | e | | | procedure are in the | | | | | | results section. | + +--------+ + + + | EXTERNAL LAB: SODIUM | Routin | 06/20/2017 | | Results for this | | | e | | | procedure are in the | | | | | | results section. | + +--------+ + + + | EXTERNAL LAB: | Routin | 06/20/2017 | | Results for this | | URINALYSIS | e | | | procedure are in the | | | | | | results section. | + +--------+ + + + | EXTERNAL LAB: CBC | Routin | 06/20/2017 | | Results for this | | | e | | | procedure are in the | | | | | | results section. | + +--------+ + + + | EXTERNAL LAB: TSH | Routin | 06/20/2017 | | Results for this | | | e | | | procedure are in the | | | | | | results section. | + +--------+ + + + | EXTERNAL LAB: | Routin | 06/20/2017 | | Results for this | | TRIGLYCERIDES | e | | | procedure are in the | | | | | | results section. | + +--------+ + + + | EXTERNAL LAB: | Routin | 06/20/2017 | | Results for this | | CHOLESTEROL, HDL | e | | | procedure are in the | | | | | | results section. | + +--------+ + + + | EXTERNAL LAB: | Routin | 06/20/2017 | | Results for this | | CHOLESTEROL, TOTAL | e | | | procedure are in the | | | | | | results section. | + +--------+ + + + | EXTERNAL LAB: | Routin | 06/20/2017 | | Results for this | | CHOLESTEROL, LDL | e | | | procedure are in the | | | | | | results section. | + +--------+ + + + | EXTERNAL LAB: EGFR | Routin | 06/20/2017 | | Results for this | | | e | | | procedure are in the | | | | | | results section. | + +--------+ + + + | EXTERNAL LAB: | Routin | 06/20/2017 | | Results for this | | CREATININE | e | | | procedure are in the | | | | | | results section. | + +--------+ + + + | LIPID PANEL | Routin | 06/20/2017 | | Results for this | | | e | | | procedure are in the | | | | | | results section. | + +--------+ + + + | URINALYSIS, REFLEX | Routin | 06/20/2017 | | Results for this | | MICROSCOPIC AND/OR | e | | | procedure are in the | | CULTURE | | | | results section. | + +--------+ + + + | CBC WITH | Routin | 06/20/2017 | | Results for this | | DIFFERENTIAL | e | | | procedure are in the | | | | | | results section. | + +--------+ + + + | COMPREHENSIVE | Routin | 06/20/2017 | | Results for this | | METABOLIC PANEL | e | | | procedure are in the | | | | | | results section. | + +--------+ + + + documented in this encounter Results External Lab: PSA (06/20/2017) + +-------+ + + + | Component | Value | Ref Range | Performed | Pathologist | | | | | At | Signature | + +-------+ + + + | PSA, | 0.6 | 0 - 4 | EXTERNAL | | | External | | | LAB | | + +-------+ + + + + +---------+ + + | Performing | Address | City/State/Zipcode | Phone Number | | Organization | | | | + +---------+ + + | EXTERNAL LAB | | | | + +---------+ + + External Lab: TSH (06/20/2017) + +-------+ + + + | Component | Value | Ref Range | Performed | Pathologist | | | | | At | Signature | + +-------+ + + + | TSH, | 2.49 | 0.3 - 6 | EXTERNAL | | | External | | | LAB | | + +-------+ + + + + + | Specimen | + + | Blood | + + + +---------+ + + | Performing | Address | City/State/Zipcode | Phone Number | | Organization | | | | + +---------+ + + | EXTERNAL LAB | | | | + +---------+ + + CBC with Differential (06/20/2017) + + + + + + | Component | Value | Ref Range | Performed | Pathologist | | | | | At | Signature | + + + + + + | MCH | 31.3 (A) | 26.0 - 31.0 pg | | | + + + + + + | MCHC | 32.9 | 31.0 - 36.0 % | | | + + + + + + | % Basophils | 0.4 | 0.0 - 2.0 % | | | + + + + + + + + | Specimen | + + | Blood | + + External Lab: CBC (06/20/2017) + +-------+ + + + | Component | Value | Ref Range | Performed | Pathologist | | | | | At | Signature | + +-------+ + + + | WBC, | 4.8 | 3 - 10.6 | EXTERNAL | | | External | | | LAB | | + +-------+ + + + | HGB, | 14.1 | 11.8 - 17.1 | EXTERNAL | | | External | | | LAB | | + +-------+ + + + | HCT, | 42.9 | 36 - 51 | EXTERNAL | | | External | | | LAB | | + +-------+ + + + | PLT, | 236 | 150 - 400 | EXTERNAL | | | External | | | LAB | | + +-------+ + + + | Neutrophils | 50.6 | 44 - 74 | EXTERNAL | | | %, | | | LAB | | | External | | | | | + +-------+ + + + | Lymphocytes | 36.7 | 15 - 42 | EXTERNAL | | | %, | | | LAB | | | External | | | | | + +-------+ + + + | Monocytes | 10.2 | 4 - 13 | EXTERNAL | | | %, External | | | LAB | | + +-------+ + + + | Eosinophils | 1.9 | 0 - 7 | EXTERNAL | | | %, | | | LAB | | | External | | | | | + +-------+ + + + | Neutrophils | 0.5 | 0.2 - 1 | EXTERNAL | | | , Absolute, | | | LAB | | | External | | | | | + +-------+ + + + | Lymphocytes | 1.8 | 0.6 - 3.4 | EXTERNAL | | | , Absolute, | | | LAB | | | External | | | | | + +-------+ + + + | Monocytes, | 0.5 | 0.2 - 1 | EXTERNAL | | | Absolute, | | | LAB | | | External | | | | | + +-------+ + + + | Eosinophils | 0.1 | 0 - 0.5 | EXTERNAL | | | , Absolute | | | LAB | | + +-------+ + + + | Basophils, | 0 | 0 - 0.2 | EXTERNAL | | | Absolute | | | LAB | | + +-------+ + + + | RBC, | 4.51 | 3.86 - 5.7 | EXTERNAL | | | External | | | LAB | | + +-------+ + + + | MCV, | 95 | 81 - 102 | EXTERNAL | | | External | | | LAB | | + +-------+ + + + | RDW, | 14 | 11.2 - 16.2 | EXTERNAL | | | External | | | LAB | | + +-------+ + + + + +---------+ + + | Performing | Address | City/State/Zipcode | Phone Number | | Organization | | | | + +---------+ + + | EXTERNAL LAB | | | | + +---------+ + + Lipid Panel (06/20/2017) + +---------+ + + + | Component | Value | Ref Range | Performed | Pathologist | | | | | At | Signature | + +---------+ + + + | Chol/HDL | 2.6 (A) | 3.7 - 6.7 Ratio | | | | Ratio | | | | | + +---------+ + + + | Non HDL | 109 | 0 - 130 Ratio | | | | Chol. | | | | | | (LDL+VLDL) | | | | | + +---------+ + + + + + | Specimen | + + | Blood | + + Comprehensive Metabolic Panel (06/20/2017) + +-------+ + + + | Component | Value | Ref Range | Performed | Pathologist | | | | | At | Signature | + +-------+ + + + | Globulin | 3.5 | 2.3 - 3.5 g/dL | | | + +-------+ + + + + + | Specimen | + + | Blood | + + External Lab: BUN (06/20/2017) + +-------+ + + + | Component | Value | Ref Range | Performed | Pathologist | | | | | At | Signature | + +-------+ + + + | BUN, | 13 | 7 - 23 | EXTERNAL | | | External | | | LAB | | + +-------+ + + + + +---------+ + + | Performing | Address | City/State/Zipcode | Phone Number | | Organization | | | | + +---------+ + + | EXTERNAL LAB | | | | + +---------+ + + External Lab: Glucose (06/20/2017) + +-------+ + + + | Component | Value | Ref Range | Performed | Pathologist | | | | | At | Signature | + +-------+ + + + | Glucose, | 92 | 71 - 109 | EXTERNAL | | | External | | | LAB | | + +-------+ + + + + +---------+ + + | Performing | Address | City/State/Zipcode | Phone Number | | Organization | | | | + +---------+ + + | EXTERNAL LAB | | | | + +---------+ + + External Lab: ALT (06/20/2017) + +-------+ + + + | Component | Value | Ref Range | Performed | Pathologist | | | | | At | Signature | + +-------+ + + + | ALT, | 35 | 11 - 66 | EXTERNAL | | | External | | | LAB | | + +-------+ + + + + +---------+ + + | Performing | Address | City/State/Zipcode | Phone Number | | Organization | | | | + +---------+ + + | EXTERNAL LAB | | | | + +---------+ + + External Lab: AST (06/20/2017) + +-------+ + + + | Component | Value | Ref Range | Performed | Pathologist | | | | | At | Signature | + +-------+ + + + | AST, | 39 | 15 - 46 | EXTERNAL | | | External | | | LAB | | + +-------+ + + + + +---------+ + + | Performing | Address | City/State/Zipcode | Phone Number | | Organization | | | | + +---------+ + + | EXTERNAL LAB | | | | + +---------+ + + External Lab: Alkaline Phosphatase (06/20/2017) + +-------+ + + + | Component | Value | Ref Range | Performed | Pathologist | | | | | At | Signature | + +-------+ + + + | ALP, | 105 | 45 - 129 | EXTERNAL | | | External | | | LAB | | + +-------+ + + + + +---------+ + + | Performing | Address | City/State/Zipcode | Phone Number | | Organization | | | | + +---------+ + + | EXTERNAL LAB | | | | + +---------+ + + External Lab: Bilirubin, Total (06/20/2017) + +-------+ + + + | Component | Value | Ref Range | Performed | Pathologist | | | | | At | Signature | + +-------+ + + + | Bilirubin, | 0.4 | 0.2 - 1.3 | EXTERNAL | | | Total, | | | LAB | | | External | | | | | + +-------+ + + + + +---------+ + + | Performing | Address | City/State/Zipcode | Phone Number | | Organization | | | | + +---------+ + + | EXTERNAL LAB | | | | + +---------+ + + External Lab: Albumin (06/20/2017) + +-------+ + + + | Component | Value | Ref Range | Performed | Pathologist | | | | | At | Signature | + +-------+ + + + | Albumin, | 4.8 | 3.5 - 5 | EXTERNAL | | | External | | | LAB | | + +-------+ + + + + +---------+ + + | Performing | Address | City/State/Zipcode | Phone Number | | Organization | | | | + +---------+ + + | EXTERNAL LAB | | | | + +---------+ + + External Lab: Protein, Total (06/20/2017) + +---------+ + + + | Component | Value | Ref Range | Performed | Pathologist | | | | | At | Signature | + +---------+ + + + | Protein, | 8.3 (A) | 6.5 - 8.2 | EXTERNAL | | | Total, | | | LAB | | | External | | | | | + +---------+ + + + + +---------+ + + | Performing | Address | City/State/Zipcode | Phone Number | | Organization | | | | + +---------+ + + | EXTERNAL LAB | | | | + +---------+ + + External Lab: Calcium (06/20/2017) + +-------+ + + + | Component | Value | Ref Range | Performed | Pathologist | | | | | At | Signature | + +-------+ + + + | Calcium, | 9.9 | 8.4 - 10.5 | EXTERNAL | | | External | | | LAB | | + +-------+ + + + + +---------+ + + | Performing | Address | City/State/Zipcode | Phone Number | | Organization | | | | + +---------+ + + | EXTERNAL LAB | | | | + +---------+ + + External Lab: Carbon Dioxide (06/20/2017) + +-------+ + + + | Component | Value | Ref Range | Performed | Pathologist | | | | | At | Signature | + +-------+ + + + | Carbon | 28 | 21 - 32 | EXTERNAL | | | Dioxide, | | | LAB | | | External | | | | | + +-------+ + + + + +---------+ + + | Performing | Address | City/State/Zipcode | Phone Number | | Organization | | | | + +---------+ + + | EXTERNAL LAB | | | | + +---------+ + + External Lab: Chloride (06/20/2017) + +--------+ + + + | Component | Value | Ref Range | Performed | Pathologist | | | | | At | Signature | + +--------+ + + + | Chloride, | 95 (A) | 98 - 107 | EXTERNAL | | | External | | | LAB | | + +--------+ + + + + +---------+ + + | Performing | Address | City/State/Zipcode | Phone Number | | Organization | | | | + +---------+ + + | EXTERNAL LAB | | | | + +---------+ + + External Lab: Potassium (06/20/2017) + +-------+ + + + | Component | Value | Ref Range | Performed | Pathologist | | | | | At | Signature | + +-------+ + + + | Potassium, | 5.0 | 3.5 - 5.1 | EXTERNAL | | | External | | | LAB | | + +-------+ + + + + +---------+ + + | Performing | Address | City/State/Zipcode | Phone Number | | Organization | | | | + +---------+ + + | EXTERNAL LAB | | | | + +---------+ + + External Lab: Sodium (06/20/2017) + +-------+ + + + | Component | Value | Ref Range | Performed | Pathologist | | | | | At | Signature | + +-------+ + + + | Sodium, | 134 | 133 - 145 | EXTERNAL | | | External | | | LAB | | + +-------+ + + + + +---------+ + + | Performing | Address | City/State/Zipcode | Phone Number | | Organization | | | | + +---------+ + + | EXTERNAL LAB | | | | + +---------+ + + External Lab: Triglycerides (06/20/2017) + +-------+ + + + | Component | Value | Ref Range | Performed | Pathologist | | | | | At | Signature | + +-------+ + + + | Triglycerid | 100 | 50 - 152 | EXTERNAL | | | es, | | | LAB | | | External | | | | | + +-------+ + + + + + | Specimen | + + | Blood | + + + +---------+ + + | Performing | Address | City/State/Zipcode | Phone Number | | Organization | | | | + +---------+ + + | EXTERNAL LAB | | | | + +---------+ + + External Lab: Cholesterol, HDL (06/20/2017) + +-------+ + + + | Component | Value | Ref Range | Performed | Pathologist | | | | | At | Signature | + +-------+ + + + | HDL | 70 | 35 - 80 mg/dl | EXTERNAL | | | Cholesterol | | | LAB | | | , External | | | | | + +-------+ + + + + + | Specimen | + + | Blood | + + + +---------+ + + | Performing | Address | City/State/Zipcode | Phone Number | | Organization | | | | + +---------+ + + | EXTERNAL LAB | | | | + +---------+ + + External Lab: Cholesterol, Total (06/20/2017) + +-------+ + + + | Component | Value | Ref Range | Performed | Pathologist | | | | | At | Signature | + +-------+ + + + | Cholesterol | 179 | 50 - 200 mg/dl | EXTERNAL | | | , Total, | | | LAB | | | External | | | | | + +-------+ + + + + + | Specimen | + + | Blood | + + + +---------+ + + | Performing | Address | City/State/Zipcode | Phone Number | | Organization | | | | + +---------+ + + | EXTERNAL LAB | | | | + +---------+ + + External Lab: Cholesterol, LDL (06/20/2017) + +-------+ + + + | Component | Value | Ref Range | Performed | Pathologist | | | | | At | Signature | + +-------+ + + + | LDL | 89 | 0 - 130 | EXTERNAL | | | Cholesterol | | | LAB | | | , Direct, | | | | | | External | | | | | + +-------+ + + + + + | Specimen | + + | Blood | + + + +---------+ + + | Performing | Address | City/State/Zipcode | Phone Number | | Organization | | | | + +---------+ + + | EXTERNAL LAB | | | | + +---------+ + + External Lab: eGFR (06/20/2017) + +-------+ + + + | Component | Value | Ref Range | Performed | Pathologist | | | | | At | Signature | + +-------+ + + + | eGFR, | >80 | 60 - 99,999 | EXTERNAL | | | External | | | LAB | | + +-------+ + + + + + | Specimen | + + | Blood | + + + +---------+ + + | Performing | Address | City/State/Zipcode | Phone Number | | Organization | | | | + +---------+ + + | EXTERNAL LAB | | | | + +---------+ + + External Lab: Creatinine (06/20/2017) + +-------+ + + + | Component | Value | Ref Range | Performed | Pathologist | | | | | At | Signature | + +-------+ + + + | Creatinine, | 0.9 | 0.8 - 1.5 | EXTERNAL | | | External | | | LAB | | + +-------+ + + + + + | Specimen | + + | Blood | + + + +---------+ + + | Performing | Address | City/State/Zipcode | Phone Number | | Organization | | | | + +---------+ + + | EXTERNAL LAB | | | | + +---------+ + + Urinalysis, Reflex Microscopic and/or Culture (06/20/2017) + + + + + + | Component | Value | Ref Range | Performed | Pathologist | | | | | At | Signature | + + + + + + | Color | Yellow | | | | + + + + + + | Clarity, | Clear | | | | | Urine | | | | | + + + + + + | Bilirubin, | Negative | Negative | | | | Urine | | | | | + + + + + + | Urobilinoge | <2.0 mg/dL | < 0.2 mg/dL, | | | | n, Urine | | 1.0 mg/dL, 4.0 | | | | | | mg/dL, Normal, | | | | | | 1.0 E.U./dL, | | | | | | 0.2 E.U./dL, | | | | | | 0.2 mg/dL, | | | | | | Negative, 1 | | | | | | mg/dL, <2.0 | | | | | | mg/dL | | | + + + + + + | Nitrite, | Negative | Negative | | | | Urine | | | | | + + + + + + | WBC | <1 | 0 - 5 | | | + + + + + + | Mucus, UA | Rare | | | | + + + + + + + + | Specimen | + + | Urine | + + External Lab: Urinalysis (06/20/2017) + + + + + + | Component | Value | Ref Range | Performed | Pathologist | | | | | At | Signature | + + + + + + | UA Blood, | Negative | | EXTERNAL | | | External | | | LAB | | + + + + + + | UA Ketones, | Negative | | EXTERNAL | | | External | | | LAB | | + + + + + + | UA Ph, | 6.0 | 5 - 8 | EXTERNAL | | | External | | | LAB | | + + + + + + | UA | 30 | | EXTERNAL | | | Proteins, | | | LAB | | | External | | | | | + + + + + + | UA Specific | 1.011 | 1.001 - 1.03 | EXTERNAL | | | [place], | | | LAB | | | External | | | | | + + + + + + | UA | Negative | | EXTERNAL | | | Leukocyte | | | LAB | | | Esterase, | | | | | | External | | | | | + + + + + + + +---------+ + + | Performing | Address | City/State/Zipcode | Phone Number | | Organization | | | | + +---------+ + + | EXTERNAL LAB | | | | + +---------+ + + documented in this encounter Visit Diagnoses Not on filedocumented in this encounter"
--- OUTSIDE RECORDS SUMMARY | ~2019-09-03 | XMS | Encounter Summary ---
Demographics + + + | Address | [address] | | | [place] [address] | + + + | Home Phone | | + + + | Preferred Language | Unknown | + + + | Marital Status | | + + + | Jainism Affiliation | Unknown | + + + | Race | Unknown | + + + | Ethnic Group | Unknown | + + + Author + + + | Author | [facility] | | | and [place] | + + + | Organization | [facility] | | | and [place] [...] Team Providers + +------+ + | Care Specialty Therapist Name | Role | Phone | + +------+ + | Unknown, Physician | PCP | | + +------+ + Encounter Details +--------+ + + + + | Date | Type | Department | Care Team | Description | +--------+ + + + + | 02/23/ | Imaging | [facility] | Provider, | | | 2019 | Exam | [facility] | [facility] [address] | | | | | IMAGING [address] [place] | | | | | [address] | [place] [address] | | | | | [place] [address] | | | | | | [phone] | | | +--------+ + + + [...] | + +--------+ + + + | SALLY NIELSON | Routin | 12/17/2018 | | Results for this | | CHEST | e | 12:00 AM | | procedure are in the | | | | PDT | | results section. | + +--------+ + + + documented in this encounter Results XR Ribs Left w PA Chest (12/17/2018 12:00 AM PDT) + + | Specimen [...]
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
--- OUTSIDE RECORDS SUMMARY | ~2019-09-03 | XMS | Encounter Summary ---
Demographics + + + | Address | [address] | | | [place] [address] | + + + | Home Phone | | + + + | Preferred Language | Unknown | + + + | Marital Status | | + + + | Hindu Affiliation | Unknown | + + + | Race | Unknown | + + + | Ethnic Group | Unknown | + + + Author + + + | Author | [facility] | | | and [place] | + + + | Organization | [facility] | | | and [place] [...] Team Providers + +------+ + | Care Box Stacker Name | Role | Phone | + +------+ + | Dacia Johnson MD | PCP | | + +------+ + Reason for Visit Auth/Cert +--------+--------+ + + + + | Status | Reason | Specialty | Diagnoses / | Referred By | Referred To | | | | | Procedures | Contact | Contact | +--------+--------+ + + + + | | | | Diagnoses | | | | | | | Marijuana | | | | | | | use | | | | | | | (F12.90), | | | | | | | Quesada's | | | | | | | esophagus | | | | | | | determined | | | | | | | by biopsy | | | | | | | (K22.70), Hx | | | | | | | of colonic | | | | | | | polyp | | | | | | | (Z86.010) | | | | | | | Procedures | | | | | | | AR | | | | | | | ESOPHAGOGAST | | | | | | | RODUODENOSCO | | | | | | | PY TRANSORAL | | | | | | | DIAGNOSTIC | | | | | | | AR EGD | | | | | | | TRANSORAL | | | | | | | BIOPSY | | | | | | | SINGLE/MULTI | | | | | | | PLE AR | | | | | | | COLONOSCOPY | | | | | | | FLX DX | | | | | | | W/COLLJ SPEC | | | | | | | WHEN PFRMD | | | | | | | AR | | | | | | | COLONOSCOPY | | | | | | | W/BIOPSY | | | | | | | SINGLE/MULTI | | | | | | | PLE AR | | | | | | | COLSC FLX | | | | | | | W/RMVL OF | | | | | | | TUMOR POLYP | | | | | | | LESION SNARE | | | | | | | TQ AR | | | | | | | ANESTHESIA | | | | | | | COMBINED | | | | | | | UPPER&LOWER | | | | | | | GI | | | | | | | ENDOSCOPIC | | | | | | | PX EGD | | | | | | | COLONOSCOPY | | | +--------+--------+ + + + + Encounter Details +--------+ + + + + | Date | Type | Department | Care Team | Description | +--------+ + + + + | 08/01/ | Hospital | [facility] | Doni Mclaughlin MD | Quesada's esophagus | | 2018 | Encounter | [facility] | [address] | determined by | | | | [address] | [place], [place] | biopsy; Hx of | | | | [place] | [address] | colonic polyp; | | | | [address] | [phone] | Special screening | | | | [phone] | | for malignant | | | | | | neoplasms, colon | +--------+ + + + + Social [...] + + + | Blood Pressure | 140/98 | 08/01/2017 5:45 PM | | | | | PDT | | + + + + + | Pulse | 61 | 08/01/2017 5:45 PM | | | | | PDT | | + + + + + | Temperature | 36.3 C (97.3 F) | 08/01/2017 5:37 PM | | | | | PDT | | + + + + + | Respiratory Rate | 16 | 08/01/2017 3:42 PM | | | | | PDT | | + + + + + | Oxygen Saturation | 99% | 08/01/2017 5:45 PM | | | | | PDT | | + + + + + | Inhaled Oxygen | - | - | | | Concentration | | | | + + + + + | Weight | 86.6 kg (190 lb 14.7 | 08/01/2017 3:42 PM | | | | oz) | PDT | | + + + + + | Height | 180.3 cm (5' 11") | 08/01/2017 3:42 PM | | | | | PDT | | + + + + + | Body Mass Index | 26.63 | 08/01/2017 3:42 PM | | | | | PDT | | + + + + + documented in this encounter Medications at Time of [...] | + + + +---------+--------+ + | aspirin 81 mg EC | Take 81 mg by mouth | | 0 | | | | tablet | Daily. | | | | 9 | + + + +---------+--------+ + | cloNIDine | Take 0.2 mg by mouth | | 0 | | | | (CATAPRES) 0.2 MG | 2 times daily. | | | | 9 | | tablet | | | | | | + + + +---------+--------+ + | selenium sulfide | Apply topically | | 0 | | | | (SELSUN) 2.5% lotion | Daily as needed for | | | | 9 | | | Itching. | | | | | + + + +---------+--------+ + | tamsulosin | Take 0.4 mg by mouth | | 0 | | | | (FLOMAX) 0.4 mg CAPS | daily (after | | | | 9 | | | breakfast). | | | | | + + + +---------+--------+ + documented as of this encounter Miscellaneous Notes D-C Instructions Provation - Doni Mclaughlin MD - 08/01/2017 4:56 PM PDTDischarge Instruct ions for Upper Endoscopy Patient: Davi Major : 1950 Acct: [id number] Exam Date: Tuesday, August 01, 2017 Doctor: Doni Mclaughlin MD The chances of difficulty following this procedure are minimal. The following instructions will assist you in your recovery. 1. Do Not eat or drink anything for 1 hour. Try sips of water first. If tolerated, resume your regular diet or one recommended by your physician. 2. Do not drive, operate machinery, make critical decisions, or do activities that require coordination or balance for 24 hours. 3. You may experience a sore throat for 24 - 48 hours. You may use throat lozenges or gargle with warm salt water to relieve the discomfort. 4. Because air was put into your stomach druing the procedure, you may experience some belching. 5. Do not use any medication containing aspirin for 10 days, unless otherwise directed by your physician. 6. Sometimes the medications given to you druing the exam can aggravate the veins. The chemical irritation can cause inflammation or pain along the arm with redness, swelling and warmth. This does not mean there is an infection. You can treat the affected area by applying warm, wet compresses (towels) 4 times a day for 20 minutes at a time until inflammation is resolved 7. Report to your doctor: Chills and/or fever over 100 Persistent vomiting or vomiting with blood/nasal regurgitation Severe abdominal pain, other than gas cramps Severe chest pain Black, tarry stools You may reach your physician at Work: . If unable to reach your physician, call [facility] Emergency Department at [phone] Your doctor recommends these additional instructions: You have a contact number available for emergencies. The signs and symptoms of potential delayed complications were discussed with you. You may return to normal activities tomorrow. Written discharge instructions were provided to you. Resume your previous diet. Continue your present medications. We are waiting for your pathology results. Your physician has recommended a repeat upper endoscopy for surveillance based on pathology results. Return to your GI clinic as needed. Do not take any aspirin, ibuprofen (including Advil, Motrin or Nuprin), naproxen (including Aleve), or any other non-steroidal anti-inflammatory drugs. The findings and recommendations have been discussed with you. These instructions have been explained to the patient and/or escort. A copy has been given to the patient/escort. Nurse Signature Patient Signature Escort Signature Date Doni Mclaughlin MD 08/01/2017 5:29:25 PM This report has been signed electronically.Electronically signed by Doni Mclaughlin MD at 5:29 PM PDTD-C Instructions Provation - Doni Mclaughlin MD - 08/01/2017 4:56 PM P DTDischarge Instructions for Colonoscopy Exams Patient: Davi Major : 1950 Acct: [id number] Exam Date: Tuesday, August 01, 2017 Doctor: Doni Mclaughlin MD You have had an examination of the gastrointestinal tract. The chances of difficulty following this procedure are minimal. The following instructions will assist you in your recovery. ACTIVITIES: Rest quietly until sedation wears off. DO NOT drive a motor vehicle or operate machinery for 24 hours after sedation. Be cautious making critical decisions for 24 hours after sedation. DIET: If throat has been sprayed, do not eat or drink for 1 hour after. Start with a swallow of tap water, if you experience any lack of sensation in your throat, wait another 30 - 60 minutes and start with water again. Once swallowing has returned to normal you may resume your usual diet unless otherwise instructed by your physician. DISCOMFORT: If you had a bowel exam, you may have some abdominal discomfort from the air put into your bowel during the exam. Moving about will help you pass this air. Sometimes the medications given to you during the exam can aggravate the veins. The chemical irritation can cause inflammation or pain along the arm with redness, swelling and warmth. This does not mean there is an infection. You can treat the affected area by applying warm,wet compresses (towels) 4 times a day for 20 minutes at a time until inflammation is resolved. REPORT TO YOUR DOCTOR: Unusual abdominal pain Chest pain or unusual shortness of breath Shoulder pain Nausea, vomiting Fever over 100 degrees, chills Signs of rectal bleeding (red or black stools) Any concern you have resulting from procedure You may reach your physician at Work: . If unable to reach your physician, call [facility] Emergency Department at [phone] Your doctor recommends these additional instructions: You have a contact number available for emergencies. The signs and symptoms of potential delayed complications were discussed with you. You may return to normal activities tomorrow. Written discharge instructions were provided to you. Resume your previous diet. Continue your present medications. Your physician has recommended a repeat colonoscopy in 10 years for screening purposes. Return to your GI clinic as needed. The findings and recommendations have been discussed with you. These instructions have been explained to the patient and/or escort. A copy has been given to the patient/escort. Nurse Signature Patient Signature Escort Signature Date Doni Mclaguhlin MD 08/01/2017 5:31:11 PM This report has been signed electronically.Electronically signed by Doni Mclaughlin MD at 5:31 PM PDTdocumented in this encounter Plan of Treatment Not on filedocumented as of this encounter Procedures + +--------+ + + + | Procedure Name | Priori | Date/Time | Associated Diagnosis | Comments | | | ty | | | | + +--------+ + + + | COLONOSCOPY | | 08/01/2017 | Marijuana use | | | | | 4:58 PM | (F12.90), Quesada's | | | | | PDT | esophagus determined | | | | | | by biopsy (K22.70), | | | | | | Hx of colonic polyp | | | | | | (Z86.010) | | + +--------+ + + + | EGD | | 08/01/2017 | Marijuana use | | | | | 4:58 PM | (F12.90), Quesada's | | | | | PDT | esophagus determined | | | | | | by biopsy (K22.70), | | | | | | Hx of colonic polyp | | | | | | (Z86.010) | | + +--------+ + + + | EGD | Routin | 08/01/2017 | | Results for this | | | e | 4:56 PM | | procedure are in the | | | | PDT | | results section. | + +--------+ + + + | COLONOSCOPY | Routin | 08/01/2017 | | Results for this | | | e | 4:56 PM | | procedure are in the | | | | PDT | | results section. | + +--------+ + + + | SURGICAL PATHOLOGY | Routin | 08/01/2017 | | Results for this | | EXAM | e | 12:00 AM | | procedure are in the | | | | PDT | | results section. | + +--------+ + + + documented in this encounter Results EGD (08/01/2017 4:56 PM PDT) + + | Specimen | + + | | + + + + -+ | Narrative | Performed At | + + -+ | | [facility] | | GastroenterologyPatient Name: Davi MajorProcedure Date: 08/01/2017 | [facility] | | 4:56 PMMRN: [id number] #: [id number] of : | | | 9Admit Type: AmbulatoryAge: 67Room: [place] [address]Gender: MaleNote | | | Status: FinalizedAttending MD: Doni Mclaughlin , [facility]cedure: | | | Upper GI endoscopyIndications: Follow-up of Quesada's | | | esophagusProviders: Doni Mclaughlin MD, Gudelia Ramos, | | | RN, Ying Hay, Hogshead Builder, [facility]. | | | MD Dorothy (Anesthesia Staff)Medicines: Monitored | | | Anesthesia CareComplications: No immediate | | | complications.Procedure: Pre-Anesthesia Assessment: - | | | Prior to the procedure, a History and Physical was performed, and | | | patient medications and allergies were reviewed. The patient is | | | competent. The risks and benefits of the procedure and the | | | sedation options and risks were discussed with the patient. All | | | questions were answered and informed consent was obtained. | | | Patient identification and proposed procedure were verified by | | | the physician, the nurse, the anesthesiologist and the | | | motorsports technician in the pre-procedure area in the procedure room. | | | Mental Status Examination: alert and oriented. Airway | | | Examination: normal oropharyngeal airway and neck mobility. | | | Respiratory Examination: clear to auscultation. CV Examination: | | | normal. Prophylactic Antibiotics: The patient does not require | | | prophylactic antibiotics. Prior Anticoagulants: The patient | | | has taken no previous anticoagulant or antiplatelet agents. ASA | | | Grade Assessment: III - A patient with severe systemic | | | disease. After reviewing the risks and benefits, the patient | | | was deemed in satisfactory condition to undergo the procedure. The | | | anesthesia plan was to use monitored anesthesia care (MAC). | | | Immediately prior to administration of medications, the patient | | | was re-assessed for adequacy to receive sedatives. The heart | | | rate, respiratory rate, oxygen saturations, blood pressure, | | | adequacy of pulmonary ventilation, and response to care were | | | monitored throughout the procedure. The physical status of the | | | patient was re-assessed after the procedure. After obtaining | | | informed consent, the endoscope was passed under direct vision. | | | Throughout the procedure, the patient's blood pressure, pulse, | | | and oxygen saturations were monitored continuously. The Endoscope was | | | introduced through the mouth, and advanced to the third part | | | of duodenum. The upper GI endoscopy was accomplished without | | | difficulty. The patient tolerated the procedure well.Findings: | | | There were esophageal mucosal changes consistent with | | | short-segment Quesada's esophagus present in the lower third of | | | the esophagus. The maximum longitudinal extent of these | | | mucosal changes was 1 cm in length. Mucosa was biopsied with a | | | cold forceps for histology. One specimen bottle was sent to | | | pathology. Verification of patient identification for the | | | specimen was done by the physician and nurse using the patient's | | | name and date. Estimated blood loss was minimal. A | | | small hiatal hernia was present. Diffuse mildly erythematous | | | mucosa without bleeding was found in the stomach. Biopsies were | | | taken with a cold forceps for histology. Verification of | | | patient identification for the specimen was done by the | | | physician and nurse using the patient's name and date. Estimated | | | blood loss was minimal. No other significant | | | abnormalities were identified in a careful examination of the | | | stomach. The cardia and gastric fundus were normal on | | | retroflexion. The examined duodenum was normal.Impression: | | | - Esophageal mucosal changes consistent with short-segment Quesada's | | | esophagus. Biopsied. - Small hiatal hernia. - | | | Erythematous mucosa in the stomach. Biopsied. - Normal examined | | | duodenum.Recommendation: - Patient has a contact number | | | available for emergencies. The signs and symptoms of potential | | | delayed complications were discussed with the patient. Return | | | to normal activities tomorrow. Written discharge instructions | | | were provided to the patient. - Resume previous diet. - | | | Continue present medications. - Await pathology results. - | | | Repeat upper endoscopy for surveillance based on pathology results. | | | - Return to GI clinic PRN. - No aspirin, ibuprofen, | | | naproxen, or other non-steroidal anti-inflammatory drugs. | | | - The findings and recommendations were discussed with the | | | patient.Doni Mclaughlin MD08/01/2017 5:29:25 PMThis report has been | | | signed electronically.Number of Addenda: 0Note Initiated On: 08/01/2017 | | | 4:56 PMTotal Procedure Duration: 0 hours 5 minutes 55 seconds Scope | | | In: 5:05:04 PMScope Out: 5:10:59 PM [facility] | | | [place], [address] [place] [id number] | | | - Resume previous diet. | | | - Continue present medications. | | | - Await pathology results. | | | - Repeat upper endoscopy for surveillance based on pathology results. | | | - Return to GI clinic PRN. | | | - No aspirin, ibuprofen, naproxen, or other non-steroidal | | | anti-inflammatory drugs. | | | - The findings and recommendations were discussed with the patient. | | |Doni Mclaughlin MD | | |08/01/2017 5:29:25 PM | | |This report has been signed electronically. | | |Number of Addenda: 0 | | |Note Initiated On: 08/01/2017 4:56 PM | | |Total Procedure Duration: 0 hours 5 minutes 55 seconds | | |Scope In: 5:05:04 PM | | |Scope Out: 5:10:59 PM | | | [facility], [address] [facility], [place], [place] | | | [address] | | + + -+ + +---------+ + + | Performing | Address | City/State/Zipcode | Phone Number | | Organization | | | | + +---------+ + + | [facility] | | | | + +---------+ + + COLONOSCOPY (08/01/2017 4:56 PM PDT) + + | Specimen | + + | | + + + + -+ | Narrative | Performed At | + + -+ | | [facility] | | GastroenterologyPatient Name: Davi MajorProcedure Date: 08/01/2017 | [place] | | 4:56 PMMRN: [id number] #: [id number] of : | | | 9Admit Type: AmbulatoryAge: 67Room: [facility] 01Gender: MaleNote | | | Status: FinalizedAttending MD: Doni Mclaughlin , [facility]rocedure: | | | ColonoscopyIndications: Screening for colorectal | | | malignant neoplasm, High risk colon cancer | | | surveillance: Personal history of colonic | | | polypsProviders: Doni Mclaughlin MD, Gudelia Ramos, | | | RNYing, [employer]ogshead Builder, [facility] | | | MD Dorothy (Anesthesia Staff)Medicines: Monitored | | | Anesthesia CareComplications: No immediate | | | complications.Procedure: Pre-Anesthesia Assessment: - | | | Prior to the procedure, a History and Physical was performed, and | | | patient medications and allergies were reviewed. The patient is | | | competent. The risks and benefits of the procedure and the | | | sedation options and risks were discussed with the patient. All | | | questions were answered and informed consent was obtained. | | | Patient identification and proposed procedure were verified by | | | the physician, the nurse, the anesthesiologist and the | | | motorsports technician in the pre-procedure area in the procedure room. | | | Mental Status Examination: alert and oriented. Airway | | | Examination: normal oropharyngeal airway and neck mobility. | | | Respiratory Examination: clear to auscultation. CV Examination: | | | normal. Prophylactic Antibiotics: The patient does not require | | | prophylactic antibiotics. Prior Anticoagulants: The patient | | | has taken no previous anticoagulant or antiplatelet agents. ASA | | | Grade Assessment: III - A patient with severe systemic | | | disease. After reviewing the risks and benefits, the patient | | | was deemed in satisfactory condition to undergo the procedure. The | | | anesthesia plan was to use monitored anesthesia care (MAC). | | | Immediately prior to administration of medications, the patient | | | was re-assessed for adequacy to receive sedatives. The heart | | | rate, respiratory rate, oxygen saturations, blood pressure, | | | adequacy of pulmonary ventilation, and response to care were | | | monitored throughout the procedure. The physical status of the | | | patient was re-assessed after the procedure. After I obtained | | | informed consent, the scope was passed under direct vision. | | | Throughout the procedure, the patient's blood pressure, pulse, | | | and oxygen saturations were monitored continuously. The Colonoscope | | | was introduced through the anus and advanced to the cecum, | | | identified by appendiceal orifice and ileocecal valve. The | | | colonoscopy was performed without difficulty. The patient | | | tolerated the procedure well. The quality of the bowel | | | preparation was good.Findings: The perianal and digital rectal | | | examinations were normal. The colon (entire examined portion) | | | appeared normal. The retroflexed view of the distal rectum and | | | anal verge was normal and showed no anal or rectal | | | abnormalities.Impression: - The entire examined colon is normal. | | | - The distal rectum and anal verge are normal on retroflexion | | | view. - No specimens collected.Recommendation: - Patient | | | has a contact number available for emergencies. The signs and | | | symptoms of potential delayed complications were discussed with the | | | patient. Return to normal activities tomorrow. Written discharge | | | instructions were provided to the patient. - Resume | | | previous diet. - Continue present medications. - Repeat | | | colonoscopy in 10 years for screening purposes. - Return to GI | | | clinic PRN. - The findings and recommendations were discussed | | | with the patient.Doni Mclaughlin MD08/01/2017 5:31:11 PMThis report | | | has been signed electronically.Number of Addenda: 0Note Initiated On: | | | 08/01/2017 4:56 PMScope Withdrawal Time: 0 hours 7 minutes 17 seconds | | | Total Procedure Duration: 0 hours 14 minutes 42 seconds Scope In: | | | 5:13:02 PMScope Out: 5:27:44 PM [facility] | | | [place], [address] [place] [id number] | | | - Resume previous diet. | | | - Continue present medications. | | | - Repeat colonoscopy in 10 years for screening purposes. | | | - Return to GI clinic PRN. | | | - The findings and recommendations were discussed with the patient. | | |Doni Mclaughlin MD | | |08/01/2017 5:31:11 PM | | |This report has been signed electronically. | | |Number of Addenda: 0 | | |Note Initiated On: 08/01/2017 4:56 PM | | |Scope Withdrawal Time: 0 hours 7 minutes 17 seconds | | |Total Procedure Duration: 0 hours 14 minutes 42 seconds | | |Scope In: 5:13:02 PM | | |Scope Out: 5:27:44 PM | | | [facility], [address] [place] [address] | | | [id number] | | + + -+ + +---------+ + + | Performing | Address | City/State/Zipcode | Phone Number | | Organization | | | | + +---------+ + + | [facility] | | | | + +---------+ + + Surgical Pathology Exam (08/01/2017 12:00 AM PDT) + + | Specimen | + + | | + + + + + | Narrative | Performed At | + + + | SPECIMEN(S): A GASTRIC BIOPSY SPECIMEN(S): B GE JUNCTION | [facility] | | SPECIMEN SOURCE: A. GASTRIC BIOPSY B. GE JUNCTION CLINICAL | [facility] | | HISTORY: F12.90 (Cannabis use, unspecified, uncomplicated), K22.70 | | | (Quesada's esophagus without dysplasia), Z86.010 (personal history of | | | colonic polyps) MICROSCOPIC DESCRIPTION: Histologic sections of | | | all submitted blocks are examined by light microscopy. These findings, | | | together with the gross examination, support the pathologic | | | diagnosis. FINAL PATHOLOGIC DIAGNOSIS: A. Gastric biopsy: - | | | Chronic inactive gastritis with foci of vascular congestion and | | | features suggestive of proton pump inhibitor effect. - Negative for | | | Helicobacter-type organisms by immunohistochemical stain. - | | | Negative for intestinal metaplasia. B. Gastroesophageal | | | junction, biopsy: - Fragments of squamocolumnar junctional mucosa | | | with intestinal metaplasia, mixed inflammation and reactive epithelial | | | changes. - Negative for dysplasia as sampled. CLR:[facility]:C2NR | | | GROSS DESCRIPTION: Received in two parts. A. Received in | | | formalin labeled "Davi Parisien" and "gastric bxs" on the requisition | | | are three pink-vivar tissue fragments measuring from 0.3-0.5 cm, | | | submitted, all in (A1). B. Received in formalin labeled "Davi | | | Parisien" and "GE junction bxs" on the requisition are five espinal-pink | | | and vivar colored tissue fragments measuring from 0.25-0.6 cm, | | | submitted, all in (B1). ka:TerryVR:[facility] ADDITIONAL NOTES: | | | Immunohistochemical studies were performed on this case with the | | | appropriate positive controls that react as expected. This test was | | | developed and its performance characteristics determined by [employer] | | | [employer]. It has not been cleared or approved by the U.S. Food | | | and Drug Administration. The FDA has determined that such clearance | | | or approval is not necessary. This test is used for clinical | | | purposes. It should not be regarded as investigational or for | | | research. [facility] is certified under the Clinical | | | Laboratory Improvement Amendments of 1988 (CLIA) as qualified to | | | perform high complexity clinical laboratory testing. This assay | | | has not been validated for specimens that have been decalcified. | | | PERFORMING LABORATORY: Tissue processing and slide preparation were | | | performed by [facility], [address] [place] [address], [address], [facility] | | | [place] [address] (Smelter Liner: Rd Casas M.D. CLIA#: | | | [id number]). Professional interpretation was performed by [facility] | | | [facility], [address] [place] [place] [address] 5, [place] [address] | | | (Smelter Liner: Rd Casas M.D.; CLIA#: [id number]). | | | Diagnostician: Juan Alberto Jade MD Pathologist Electronically | | | Signed 08/05/2017 | | + + + + +---------+ + + | Performing | Address | City/State[facility] | Phone Number | | Organization | | | | + +---------+ + + | [facility] | | | | | [facility] | | | | + +---------+ + + documented in this encounter Visit Diagnoses + + | Diagnosis | + + | Quesada's esophagus determined by biopsy | + + | Hx of colonic polyp Personal history of colonic polyps | + + | Special screening for malignant neoplasms, colon | + + documented in this encounter Administered Medications + +--------+---------+------+------+------+ | Medication Order | MAR | Action | Dose | Rate | Site | | | Action | Date | | | | + +--------+---------+------+------+------+ + +---+ | albuterol 2.5 mg/3 mL nebulizer | | | solution 2.5 mg 2.5 mg, | | | Nebulization, ONCE PRN, Wheezing, | | | Starting Fri08/01/17 at 1748, For | | | 1 dose, Notify anesthesia if | | | patient is wheezing and does not | | | have a history of asthma or COPD | | | or current smoking., | | | Post-op/Phase II | | + +---+ | | | + +---+ | albuterol-ipratropium (DUONEB) | | | 2.5-0.5 mg/3 mL nebulizer | | | solution 3 mL 3 mL, | | | Nebulization, ONCE PRN, Wheezing, | | | Starting Fri08/01/17 at 1610, For | | | 1 dose, Pre-op | | + +---+ | | | + +---+ | albuterol-ipratropium (DUONEB) | | | 2.5-0.5 mg/3 mL nebulizer | | | solution 3 mL 3 mL, | | | Nebulization, ONCE PRN, Wheezing, | | | Shortness of Breath, Starting | | | Fri08/01/17 at 1748, For 1 dose, | | | Post-op/Phase II | | + +---+ | | | + +---+ | dextrose 50% injection 12.5-25 | | | g 12.5-25 g, Intravenous, EVERY | | | 15 MIN PRN, Low Blood Sugar, Give | | | 12.5g (25 mL) IV if blood | | | glucose 50-69 mg/dL. Give 25g | | | (50 mL) IV if blood glucose < 50, | | | Starting Fri08/01/17 at 1610, | | | Repeat in 15 min if blood glucose | | | remains < 70 mg/dL. Repeat | | | blood glucose in 30 min once | | | blood glucose > 70., Pre-op | | + +---+ | | | + +---+ + +---------+ +--------+-------+---+ | lactated ringers (LR) infusion | New Bag | 08/02/19 | 1,000 | 100 | | | at 100 mL/hr, Intravenous, | | 18 4:12 | mLs | mL/hr | | | CONTINUOUS, Starting Fri08/01/17 | | PM PDT | | | | | at 1630, Pre-op | | | | | | + +---------+ +--------+-------+---+ + +---+ | | | + +---+ | lactated ringers (LR) infusion | | | at 10-100 mL/hr, Intravenous, | | | CONTINUOUS, Starting Fri08/01/17 | | | at 1630, TKO. Use this instead of | | | NS unless dialysis patient., | | | Pre-op | | + +---+ | | | + +---+ | ondansetron (ZOFRAN) injection | | | 4 mg 4 mg, Intravenous, ONCE | | | PRN, Nausea, Starting Fri08/01/17 | | | at 1610, For 1 dose, Pre-op | | + +---+ | | | + +---+ | ondansetron (ZOFRAN) injection | | | 4 mg 4 mg, Intravenous, ONCE | | | PRN, Nausea, Starting Fri08/01/17 | | | at 1748, For 1 dose, | | | Post-op/Phase II | | + +---+ | | | + +---+ | scopolamine (TRANSDERM-SCOP) 1 | | | mg/3 days 1 patch 1 patch, | | | Transdermal, PRN, adult patients | | | with history of PONV, Starting | | | Fri08/01/17 at 1610, For 1 dose, | | | PRN for adult patients <65 yo | | | with history of PONV. Hold for | | | patients with glaucoma, dementia, | | | altered mental status, or | | | history of allergy to | | | Scopolamine. Apply to mastoid | | | process behind ear., Pre-op | | + +---+ | | | + +---+ | sodium chloride 0.9% (NS) | | | infusion at 10-100 mL/hr, | | | Intravenous, CONTINUOUS, Starting | | | Fri08/01/17 at 1630, TKO. Use | | | this instead of LR if patient is | | | on dialysis., Pre-op | | + +---+ | | | + +---+ documented in this encounter
--- OUTSIDE RECORDS SUMMARY | ~2019-09-03 | XMS | Encounter Summary ---
Demographics + + + | Address | [address] | | | [place] [address] | + + + | Home Phone | | + + + | Preferred Language | Unknown | + + + | Marital Status | | + + + | Druze Affiliation | Unknown | + + + | Race | Unknown | + + + | Ethnic Group | Unknown | + + + Author + + + | Author | [facility] | | | and [place] | + + + | Organization | [facility] | | | and [...] Team Providers + +------+ + | Care Asbestos Shingle Inspector Name | Role | Phone | + [...] | | | | | | | LA | | | | | | | ESOPHAGOGAST | | | | | | | RODUODENOSCO | | | | | | | PY TRANSORAL | | | | | | | DIAGNOSTIC | | | | | | | LA EGD | | | | | | | TRANSORAL | | | | | | | BIOPSY | | | | | | | SINGLE/MULTI | | | | | | | PLE LA | | | | | | | COLONOSCOPY | | | | | | | FLX DX | | | | | | | W/COLLJ SPEC | | | | | | | WHEN PFRMD | | | | | | | LA | | | | | | | COLONOSCOPY | | | | | | | W/BIOPSY | | | | | | | SINGLE/MULTI | | | | | | | PLE LA | | | | | | | COLSC FLX | | | | | | | W/RMVL OF | | | | | | | TUMOR POLYP | | | | | | | LESION SNARE | | | | | | | TQ LA | | | | | | | [...] +--------+--------+ + + + + Encounter Details +--------+---------+ + + + | Date | Type | Department | Care Team | Description | +--------+---------+ + + + | 08/01/ | Surgery | [facility] | Doni Mclaughlin MD | EGD | | 2018 | | MED CTR [facility] OP | [address] | | | | | [address] | [place], [place] | | | | | [place] | [address] | | | | | [address] | [phone] | | | | | [phone] | | | +--------+---------+ + + + Social History + + [...] + + + | Blood Pressure | 134/94 | 08/01/2017 3:42 PM | | | | | PDT | | + + + + + | Pulse | 64 | 08/01/2017 3:42 PM | | | | | PDT | | + + + + + | Temperature | 36.6 C (97.9 F) | 08/01/2017 3:42 PM | | | | | PDT | | + + + + + | Respiratory Rate | 16 | 08/01/2017 3:42 PM | | | | | PDT | | + + + + + | Oxygen Saturation | 100% | 08/01/2017 3:42 PM | | | [...] Instruct ions for Upper Endoscopy Patient: Davi Moriah : 1950 Acct: [id number] Exam Date: Tuesday, August 01, 2017 Doctor: [...] If unable to reach your physician, call [facility] Emergency Department at [address] Your doctor [...] Exams Patient: Davi Major : 1950 Acct: [id number] Exam Date: Tuesday, August 01, 2017 Doctor: [...] If unable to reach your physician, call [facility] Emergency Department at [address] Your doctor [...] Escort Signature Date Doni Mclaughlin MD 08/01/2017 5:31:11 PM This report has [...] 08/01/2017 | [facility] | | 4:56 PMMRN: [id number] #: [id number] of : | | | 9Admit Type: AmbulatoryAge: 67Room: [facility] 01Gender: MaleNote | | | Status: FinalizedAttending MD: Doni Mclaughlin , [facility]cedure: | | | Upper GI endoscopyIndications: Follow-up of Quesada's | | | esophagusProviders: Doni Mclaughlin MD, Gudelia Ramos, | | | RN, Ying Hay, Pharmacy Customer Care Specialist, [facility]. | | | MD Dorothy (Anesthesia Staff)Medicines: [...] the anesthesiologist and the | | | driver license technician in the pre-procedure area in the [...] | In: 5:05:04 PMScope Out: 5:10:59 PM [facility] | | | [place], [address] [place] [address] | | | - Resume previous diet. [...] |Scope Out: 5:10:59 PM | | | [facility], [address] [place] [place] | | | [address] | | + + -+ + +---------+ [...] 08/01/2017 | [facility]OVATION | | 4:56 PMMRN: [id number] #: [id number] of : | | | 9Admit Type: AmbulatoryAge: 67Room: [facility] 01Gender: MaleNote | | | Status: FinalizedAttending MD: Doni Mclaughlin [facility]rocedure: | | | ColonoscopyIndications: Screening for colorectal | | | malignant neoplasm, High risk colon cancer | | | surveillance: Personal history of colonic | | | polypsProviders: Doni Mclaughlin MD, Gudelia Ramos, | | | RNYing, Pharmacy Customer Care Specialist, [facility]. | | | MD Dorothy (Anesthesia Staff)Medicines: [...] the anesthesiologist and the | | | driver license technician in the pre-procedure area in the [...] | | 5:13:02 PMScope Out: 5:27:44 PM [facility] | | | [place], [address] [place] [address] | | | - Resume previous diet. [...] |Scope Out: 5:27:44 PM | | | [facility], [address] [place] [address] | | | [id number] | | + + -+ + +---------+ [...] changes. - Negative for dysplasia as sampled. CLR:[facility]:C2NR | | | GROSS DESCRIPTION: Received in [...] | | | submitted, all in (B1). ka:JVR:[facility] ADDITIONAL NOTES: | | | Immunohistochemical studies were performed on this case with the | | | appropriate positive controls that react as expected. This test was | | | developed and its performance characteristics determined by [facility] | | | [facility]. It has not been cleared or approved by the U.S. Food | | | and Drug Administration. The FDA has determined that such clearance | | | or approval is not necessary. This test is used for clinical | | | purposes. It should not be regarded as investigational or for | | | research. [facility] is certified under the Clinical | | | Laboratory Improvement Amendments of 1988 (CLIA) as qualified to | | | perform high complexity clinical laboratory testing. This assay | | | has not been validated for specimens that have been decalcified. | | | PERFORMING LABORATORY: Tissue processing and slide preparation were | | | performed by [facility], [address], [facility] | | | [place] [address] (Plasterer Maintenance: Rd Casas M.D. CLIA#: | | | [id number]). Professional interpretation was performed by [facility] | | | [facility], [address], [place] [address] | | | (Plasterer Maintenance: Rd Casas M.D.; [facility]#: [id number]). | | | Diagnostician: Juan Alberto Jade [...] Diagnoses Not on filedocumented in this encounter Administered Medications + +--------+---------+------+------+------+ [...]
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
--- OUTSIDE RECORDS SUMMARY | ~2019-09-03 | XMS | Encounter Summary ---
Demographics + + + | Address | [address] | | | [place] [address] | + + + | Home Phone | | + + + | Preferred Language | Unknown | + + + | Marital Status | | + + + | Orthodox Affiliation | Unknown | + + + | Race | Unknown | + + + | Ethnic Group | Unknown | + + + Author + + + | Author | [facility] | | | and [place] | + + + | Organization | [facility] | | | and [...] Team Providers + +------+ + | Care Jewel Hole Finish Opener Name | Role | Phone | + +------+ + PCP | Unavailable | + +------+ + Encounter Details +--------+ + + + + | Date | Type | Department | Care Team | Description | +--------+ + + + + | 12/03/ | [facility] | [facility] | Tomas Harvey, | | | 2010 | Encounter | MED CTR EMER[facility]ENCY | [address] | | | | | CENTER [address] | [place] | | | | | [place] | [address] | | | | | [address] | | | | | | [phone] | | | +--------+ + + + [...] + documented as of this encounter ED Notes Tomas Harvey MD - 12/03/2010 9:45 AM PDTDATE: 12/03/2010 CHIEF COMPLAINT: This is a 60-year-old male with a chief complaint of high blood pressure w ith headac he. HISTORY OF PRESENT ILLNESS: He has had this intermittently over the last year, when his blo od pressur e gets high, he gets a headache. No nausea or vomiting. No numbness or weakness. No altered mental status or confusion, no v ision flores ges. One week ago, he says, they took him down from five antihypertensives to one lisinopril, an d he has h ad increasing high blood pressures over the last week, especially over the last three days with heada ray again. No numbness or weakness. He describes his headache now is 3/10. They took him off of all these blood pressure medications, he states, because his blood pr essure was low, in the 80s. His blood pressure was 202/124 this morning at 6 o'clock. PAST MEDICAL HISTORY: He has a history of hypertension. SOCIAL HISTORY: He has a nonsmoker. HOME MEDICATIONS 1. Aspirin. 2. Clonidine. 3. Hydrochlorothiazide. 4. Hydrocodone. 5. Lisinopril. 6. Magnesium oxide. 7. Omeprazole. 8. Terazosin. 9. Vitamin D. He states, he is only taking lisinopril now. REVIEW OF SYSTEMS: A complete review of systems is negative except as detailed in the HPI jasson hernandez. PHYSICAL EXAMINATION VITAL SIGNS: Blood pressure 179/104, heart rate 79, respirations 14, afebrile, 98% on room air. GENERAL: No acute distress. HEENT: Pupils equal and reactive to light and accommodation. Extraocular movements intact. Oral mucos a moist. Retinas appear normal on retinal exam. NECK: Supple. Nontender. NEUROLOGIC: Cranial nerves II through XII intact. Normal sensation, motor, and strength in all four e xtremities. Alert and oriented x3. SKIN: No rashes or lesions. CARDIAC: Normal S1, S2. LUNGS: Clear to auscultation bilaterally. ABDOMEN: Soft, nontender, nondistended. Normal bowel sounds. ED COURSE / TEST REVIEW: CBC shows hematocrit 34.3, otherwise within normal limits. BMP tiffanie ws a potas sium of 3.4, otherwise within normal limits. ASSESSMENT: THIS IS A 60-YEAR-OLD MALE WITH A DIAGNOSIS OF HYPERTENSION. PLAN: He occasionally is symptomatic and is asymptomatic now. As regards to headache, CT sc an of his head showed no intracranial abnormalities. I believe this is likely due to withdrawal of so many antihypertensives. We went ahead and gave him C lonidine in the daily dose that he normally receives. Recommend he restart Cloni dine only, and follow up with his primary care provider as soon as possible. Return if any new concerning symptoms. DICTATED BY: Tomas Harvey M.D. Emergency Medicine JOB #: [id number] EXT JOB #:[id number] <Electronicall y Signed by Tomas Harvey MD> 12/10/10 1424 documented in this encounter Plan of Treatment Not on filedocumented as of this encounter Procedures + +--------+ + + + | Procedure Name | Priori | Date/Time | Associated Diagnosis | Comments | | | ty | | | | + +--------+ + + + | CBC NO DIFFERENTIAL | Routin | 12/03/2010 | | Results for this | | | e | 11:20 AM | | procedure are in the | | | | PDT | | results section. | + +--------+ + + + | BASIC METABOLIC | Routin | 12/03/2010 | | Results for this | | PANEL | e | 11:20 AM | | procedure are in the | | | | PDT | | results section. | + +--------+ + + + | CT HEAD WO CONTRAST | | 12/03/2010 | | Results for this | | | | 9:45 AM | | procedure are in the | | | | PDT | | results section. | + +--------+ + + + documented in this encounter Results CBC no Differential (12/03/2010 11:20 AM PDT) + + + + + + | Component | Value | Ref Range | Performed | Pathologist | | | | | At | Signature | + + + + + + | White Blood | 5.7 | 4.0 - 11.0 K/uL | [facility] | | | Cells | | | [facility] | | | | | [facility] | | | | | [facility] - | | | | | | LABORATORY | | + + + + + + | Red Blood | 3.63 (L) | 4.30 - 5.70 | [facility] | | | Cells | | M/uL | [facility] | | | | | | [facility] | | | | | | [facility] - | | | | | | LABORATORY | | + + + + + + | Hemoglobin | 11.4 (L) | 13.5 - 18.0 | [facility] | | | | | gm/dL | [facility] | | | | | [facility] | | | | | | [facility] - | | | | | | LABORATORY | | + + + + + + | Hematocrit | 34.3 (L) | 40.0 - 51.0 % | [facility] | | | | | | [facility] | | | | | | [facility] | | | | | | [facility] - | | | | | | LABORATORY | | + + + + + + | MCV | 94.3 | 83.0 - 101.0 fL | [facility] | | | | | | [facility] | | | | | | [facility] | | | | | | [facility] - | | | | | | LABORATORY | | + + + + + + | MCH | 31.5 | 28.0 - 35.0 pg | [facility] | | | | | | [facility] | | | | | | [facility] | | | | | | [facility] - | | | | | | LABORATORY | | + + + + + + | MCHC | 33.3 | 32.0 - 36.0 | [facility] | | | | | g/dL | [facility] | | | | | | [facility] | | | | | | [facility] - | | | | | | LABORATORY | | + + + + + + | RDW-CV | 18.5 (H) | <15.0 % | [facility] | | | | | | [facility] | | | | | | [facility] | | | | | | [facility] - | | | | | | LABORATORY | | + + + + + + | Platelet | 396 | 140 - 440 K/uL | [facility] [...] + | [facility] | [address] | [place] | [phone] | | [facility] | | [address] | | | - LABORATORY | | | | + + + + + | [facility] | [address] | [place] | | | [facility] | | [address], [facility] | | | - LABORATORY | | | | + + + + + Basic Metabolic Panel (12/03/2010 11:20 AM PDT) + + + + + + | Component | Value | Ref Range | Performed | Pathologist | | | | | At | Signature | + + + + + + | Glucose | 109 | 70 - 109 mg/dL | [facility] | | | | | | [facility] | | | | | | [facility] | | | | | | [facility] - | | | | | | LABORATORY | | + + + + + + | Calcium | 9.4 | 8.3 - 10.5 | [facility] | | | | | mg/dL | [facility] | | | | | | [facility] | | | | | | [facility]ENTER - | | | | | | LABORATORY | | + + + + + + | BUN | 10 | 7 - 18 mg/dL | [facility] | | | | | | [facility] | | | | | | [facility] | | | | | | CENTER - | | | | | | LABORATORY | | + + + + + + | Creatinine | 0.78 | 0.60 - 1.30 | [facility] | [...] + + + + | BUN/Creatin | 12.8 | 12 - 20 | [facility] | | | ine Ratio | | | [facility] | | | | | | MEDICAL | | | | | | CENTER - | | | | | | LABORATORY | | + + + + + + | Na | 137 | 136 - 149 mEq/L | [facility] | | | | | | [facility] | | | | | | [facility] | | | | | | CENTER - | | | | | | LABORATORY | | + + + + + + | K | 3.4 (L) | 3.5 - 5.1 mEq/l | [facility] | | | | | | [facility] | | | | | | [facility] | | | | | | CENTER - | | | | | | LABORATORY | | + + + + + + | Cl | 105 | 98 - 109 mEq/l | [facility] | | | | | | [facility] | | | | | | [facility] | | | | | | CENTER - | | | | | | LABORATORY | | + + + + + + | CO2 | 25 | 24 - 31 mEq/L | [facility] | | | | | | [facility] | | | | | | [facility] | | | | | | CENTER - | | | | | | LABORATORY | | + + + + + + | Anion Gap | 10.4 | 6.0 - 17.0 | [facility] | [...] + | [facility] | [address] | [place], [place] | [phone] | | [facility] | | [address] | | | - LABORATORY | | | | + + + + + | [facility] | [address] | [place], [place] | | | [facility] | | [address], [facility] | | | - LABORATORY | | | | + + + + + CT Head wo Contrast (12/03/2010 9:45 AM PDT) + + | Specimen | + + | | + + + + + | Narrative | Performed At | + + + | [facility] | [facility] | | [address] , [facility] | [facility] | | NONCONTRAST HEAD CT, 1120 HOURS, | DIAG IMG | | 12/03/2010 COMPARISON: December,. CLINICAL HISTORY: | | | HYPERTENSION AND HEADACHE. FINDINGS: No acute intracranial | | | hemorrhage is identified. There is no acute intracranial abnormality | | | . There is stable mild age-related prominence of CSF spaces. No | | | parenchymal abnormality is seen. The ventricular system is normal | | | for age. The brainstem and cerebellum are unremarkable. The calvarium, | | | s kull base and orbits are unremarkable. IMPRESSION: 1. | | | NEGATIVE NONCONTRAST HEAD CT. COMMENT: FINDINGS REPORTED TO | | | [facility] AT 1140 HOURS. Dictated Date/Time: 12/03/2010 13:00 | | | Transcribed Date/Time: 12/03/2010 13:28 Cooperative Extension Agent: | | | <Electronically Signed by Jovan Rice MD> 12/03/10 1737 | | + + + + + | Procedure Note | + + | Sony, Rad Conversion - 04/02/2013 3:59 PM [facility] | | Diagnostic Imaging Department [address] [place] [address] | | NONCONTRAST HEAD CT, 1120 HOURS, 12/03/2010 COMPARISON: | | December,. CLINICAL HISTORY: HYPERTENSION AND HEADACHE. FINDINGS: No acute | | intracranial hemorrhage is identified. There is no acute intracranial abnormality. There | | is stable mild age-related prominence of CSF spaces. No parenchymal abnormality is | | seen. The ventricular system is normal for age. The brainstem and cerebellum are | | unremarkable. The calvarium, skull base and orbits are unremarkable. IMPRESSION: 1. | | NEGATIVE NONCONTRAST HEAD CT. COMMENT: FINDINGS REPORTED TO DR. HARVEY AT 1140 HOURS. | | Dictated Date/Time: 12/03/2010 13:00Transcribed Date/Time: 12/03/2010 | | 13:28Transcriptionist: <Electronically Signed by Jovan Rice MD> 12/03/10 | | 2857 | |FINDINGS: No acute intracranial hemorrhage is identified. There is no acute intracranial a bnormality | |. There is stable mild age-related prominence of CSF spaces. No parenchymal abnormality is seen. The | |ventricular system is normal for age. The brainstem and cerebellum are unremarkable. The ca lvarium, s | |kull base and orbits are unremarkable. | | | |IMPRESSION: | |1. NEGATIVE NONCONTRAST HEAD CT. | | | |COMMENT: FINDINGS REPORTED TO DR. HARVEY AT 1140 HOURS. | | | |Dictated Date/Time: 12/03/2010 13:00 | |Transcribed Date/Time: 12/03/2010 13:28 | |Cooperative Extension Agent: | |<Electronically Signed by Jovan Rice MD> 12/03/10 1737 | + + + +---------+ + + | Performing | Address | City/State/Zipcode | Phone Number | | Organization | | | | + +---------+ + + | [place] | | | | | [facility] | | | | + +---------+ + + documented in this encounter Visit Diagnoses Not on filedocumented in this encounter"
--- OUTSIDE RECORDS SUMMARY | ~2019-09-03 | XMS | Encounter Summary ---
Demographics + + + | Address | [address] | | | [place] [address] | + + + | Home Phone | | + + + | Preferred Language | Unknown | + + + | Marital Status | | + + + | Scientologist Affiliation | Unknown | + + + | Race | Unknown | + + + | Ethnic Group | Unknown | + + + Author + + + | Author | [facility] | | | and [place] | + + + | Organization | [facility] | | | and [place] [...] Team Providers + +------+ + | Care Car Repossessor Name | Role | Phone | + +------+ + | Dacia Johnson MD | PCP | | + +------+ + Reason for Visit +--------+--------+ + | Reason | Onset | Comments | | | Date | | +--------+--------+ + | Other | 11/10/ | | | | 2018 | | +--------+--------+ + Encounter Details +--------+ + + + + | Date | Type | Department | Care Team | Description | +--------+ + + + + | 11/10/ | Telephone | [facility] | Doni Mclaughlin MD | Other | | 2019 | | GASTROENTEROLOGY | [address] | | | | | [address] [facility] | [place], [place] | | | | | [address] [place] | [address] | | | | | [address] | [phone] | | | | | [phone] | | | +--------+ + + + [...] Telephone Encounter - Jessica Zavala RN - 11/16/2018 8:01 AM PDTPatient aware. Closing encounter. elephone Encounter - Lul Naidu - 11/13/2018 10:54 AM PDTPatient's spouse returning Nataliia, RN c all in regard to lab orders sent to [facility] and to do labs prior to CT scan. Debbie terrazas understands and will relay info patient. Routing to clinical staff. Electronically si gned by Lul Naidu at 11/13/2018 11:00 AM PDTTelephone Encounter - Jessica Zavala RN - 11/10/2018 4:04 PM PDTCT scan ordered on 10/09/18 is authorized through insurance. Called and left a message on personal [employer] with imaging's phone number to schedule. No follow -up appointment with Dr. Mclaughlin is currently scheduled. documented in this encounter Plan of Treatment Not on filedocumented as of this encounter Visit Diagnoses Not on filedocumented in this encounter"
--- OUTSIDE RECORDS SUMMARY | ~2019-09-03 | XMS | Encounter Summary ---
Demographics + + + | Address | [address] | | | [place] [address] | + + + | Home Phone | | + + + | Preferred Language | Unknown | + + + | Marital Status | | + + + | Catholic Affiliation | Unknown | + + + | Race | Unknown | + + + | Ethnic Group | Unknown | + + + Author + + + | Author | [facility] | | | and [place] | + + + | Organization | [facility] | | | and [place] [...] Team Providers + +------+ + | Care Emissions Repair Technician Name | Role | Phone | + +------+ + | Dacia Johnson MD | PCP | | + +------+ + Encounter Details +--------+ + + + + | Date | Type | Department | Care Team | Description | +--------+ + + + + | 07/10/ | Episode | [facility] | Carmen Guerra | | | 2018 | Changes | GASTROENTEROLOGY | [place] | | | | | [address] | | | | | | [address] [place] | | | | | | [address] | | | | | | [phone] | | | +--------+ + + + [...]
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
--- OUTSIDE RECORDS SUMMARY | ~2019-09-03 | XMS | Encounter Summary ---
Demographics + + + | Address | [address] | | | [place] [address] | + + + | Home Phone | | + + + | Preferred Language | Unknown | + + + | Marital Status | | + + + | Episcopalian Affiliation | Unknown | + + + | Race | Unknown | + + + | Ethnic Group | Unknown | + + + Author + + + | Author | [facility] | | | and [place] | + + + | Organization | [facility] | | | and [...] Team Providers + +------+ + | Care Corporate Accounting Manager Name | Role | Phone | + +------+ + | Dacia Johnson MD | PCP | | + +------+ + Encounter Details +--------+ + + + + | Date | Type | Department | Care Team | Description | +--------+ + + + + | 11/13/ | Orders Only | [facility] | Doni Mclaughlin MD | Quesada's esophagus | | 2019 | | GASTROENTEROLOGY | [address] | determined by biopsy | | | | [address] [facility] | [place] | (Primary Dx) | | | | [address] | [address] | | | | | [address] | [phone] | | | | | [phone] | | | +--------+ + + + [...] + + documented as of this encounter Progress Notes Nataliia Littlejohn RN - 11/13/2018 9:36 AM PDTCMP needed prior to CT on 11/17/18. Labs order ed and faxed to [facility] in [place]. Left message for patient to please return our call r egarding this matter............................................Nataliia Littlejohn RN on 11/13/18 at 9:39 documented in this en counter Plan of Treatment Not on filedocumented as of this encounter Visit Diagnoses + + | Diagnosis | + + | Quesada's esophagus determined by biopsy - Primary | + + documented in this encounter"
--- OUTSIDE RECORDS SUMMARY | ~2019-09-03 | XMS | Encounter Summary ---
Demographics + + + | Address | [address] | | | [place] [address] | + + + | Home Phone | | + + + | Preferred Language | Unknown | + + + | Marital Status | | + + + | Restorationism Affiliation | Unknown | + + + | Race | Unknown | + + + | Ethnic Group | Unknown | + + + Author + + + | Author | [facility] | | | and [place] | + + + | Organization | [facility] | | | and [place] [...] Team Providers + +------+ + | Care Asphalt Machine Operator Name | Role | Phone | + +------+ + | Dacia Johnson MD | PCP | | + +------+ + Encounter Details +--------+ + + + + | Date | Type | Department | Care Team | Description | +--------+ + + + + | 09/01/ | Abstract | [facility] | Doyle, | | | 2018 | | GASTROENTEROLOGY | [address] | | | | | [address] | [place] | | | | | [address] | [place] [address] | | | | | [address] | | | | | | [phone] | | | +--------+ + + + [...] +--------+ + + + | EXTERNAL LAB: ALEX | Routin | 08/10/2018 | | Results for this | | | e | | | procedure are in the | | | | | | results section. | + +--------+ + + + | EXTERNAL LAB: | Routin | 08/10/2018 | | Results for this | | GLUCOSE | e | | | procedure are in the | | | | | | results section. | + +--------+ + + + | EXTERNAL LAB: ALT | Routin | 08/10/2018 | | Results for this | | | e | | | procedure are in the | | | | | | results section. | + +--------+ + + + | EXTERNAL LAB: AST | Routin | 08/10/2018 | | Results for this | | | e | | | procedure are in the | | | | | | results section. | + +--------+ + + + | EXTERNAL LAB: | Routin | 08/10/2018 | | Results for this | | ALKALINE PHOSPHATASE | e | | | procedure are in the | | | | | | results section. | + +--------+ + + + | EXTERNAL LAB: | Routin | 08/10/2018 | | Results for this | | BILIRUBIN, TOTAL | e | | | procedure are in the | | | | | | results section. | + +--------+ + + + | EXTERNAL LAB: | Routin | 08/10/2018 | | Results for this | | ALBUMIN | e | | | procedure are in the | | | | | | results section. | + +--------+ + + + | EXTERNAL LAB: | Routin | 08/10/2018 | | Results for this | | PROTEIN, TOTAL | e | | | procedure are in the | | | | | | results section. | + +--------+ + + + | EXTERNAL LAB: | Routin | 08/10/2018 | | Results for this | | CALCIUM | e | | | procedure are in the | | | | | | results section. | + +--------+ + + + | EXTERNAL LAB: | Routin | 08/10/2018 | | Results for this | | URINALYSIS | e | | | procedure are in the | | | | | | results section. | + +--------+ + + + | EXTERNAL LAB: CBC | Routin | 08/10/2018 | | Results for this | | | e | | | procedure are in the | | | | | | results section. | + +--------+ + + + | EXTERNAL LAB: CBC | Routin | 08/10/2018 | | Results for this | | | e | | | procedure are in the | | | | | | results section. | + +--------+ + + + | EXTERNAL LAB: CBC | Routin | 08/10/2018 | | Results for this | | | e | | | procedure are in the | | | | | | results section. | + +--------+ + + + | EXTERNAL LAB: TSH | Routin | 08/10/2018 | | Results for this | | | e | | | procedure are in the | | | | | | results section. | + +--------+ + + + | EXTERNAL LAB: | Routin | 08/10/2018 | | Results for this | | TRIGLYCERIDES | e | | | procedure are in the | | | | | | results section. | + +--------+ + + + | EXTERNAL LAB: | Routin | 08/10/2018 | | Results for this | | CHOLESTEROL, HDL | e | | | procedure are in the | | | | | | results section. | + +--------+ + + + | EXTERNAL LAB: | Routin | 08/10/2018 | | Results for this | | CHOLESTEROL, TOTAL | e | | | procedure are in the | | | | | | results section. | + +--------+ + + + | EXTERNAL LAB: | Routin | 08/10/2018 | | Results for this | | CHOLESTEROL, LDL | e | | | procedure are in the | | | | | | results section. | + +--------+ + + + | EXTERNAL LAB: EGFR | Routin | 08/10/2018 | | Results for this | | | e | | | procedure are in the | | | | | | results section. | + +--------+ + + + | EXTERNAL LAB: | Routin | 08/10/2018 | | Results for this | | CREATININE | e | | | procedure are in the | | | | | | results section. | + +--------+ + + + | LIPID PANEL | Routin | 08/10/2018 | | Results for this | | | e | | | procedure are in the | | | | | | results section. | + +--------+ + + + | URINALYSIS, REFLEX | Routin | 08/10/2018 | | Results for this | | MICROSCOPIC AND/OR | e | | | procedure are in the | | CULTURE | | | | results section. | + +--------+ + + + | CBC WITH | Routin | 08/10/2018 | | Results for this | | DIFFERENTIAL | e | | | procedure are in the | | | | | | results section. | + +--------+ + + + | COMPREHENSIVE | Routin | 08/10/2018 | | Results for this | | METABOLIC PANEL | e | | | procedure are in the | | | | | | results section. | + +--------+ + + + documented in this encounter Results Urinalysis, Reflex Microscopic and/or Culture (08/10/2018) + + + + + + | [...] + + + + | Urobilinoge | Negative | < 0.2 mg/dL, | | | [...] + + + + + + | Hyaline | 3-5 | /LPF | | | | Casts, | | | | | | Urine | | | | | + + + + + + | Mucus, UA | Rare | | | | + + + + + + | WBC, UA | 1 | 0 - 5 /HPF | | | + + + + + + + + | Specimen | + + | Urine | + + CBC with Differential (08/10/2018) + + + + + + | Component | Value | Ref Range | Performed | Pathologist | | | | | At | Signature | + + + + + + | MCH | 32.2 (A) | 27.0 - 31.0 pg | | | + + + + + + | MCHC | 33.3 | 32.0 - 36.0 | | | | | | g/dL | | | + + + + + + | % Basophils | 0.3 | 0.0 - 2.0 % | | | + + + + + + | % Immature | 0.3 | 0.0 - 0.9 % | | | | Granulocyte | | | | | | s | | | | | + + + + + + | Absolute | 0.02 | 0.00 - 0.07 | | | | Immature | | K/uL | | | | Granulocyte | | | | | | s | | | | | + + + + + + + + | Specimen | + + | Blood | + + Lipid Panel (08/10/2018) + +---------+ + + + | Component | Value | Ref Range | Performed | Pathologist | | | | | At | Signature | + +---------+ + + + | Chol/HDL | 3.0 (A) | 3.7 - 6.7 Ratio | | | | Ratio | | | | | + +---------+ + + + | Non HDL | 110 | 0 - 130 mg/dl | | | | Chol. | | | | | | (LDL+VLDL) | | | | | + +---------+ + + + + + | Specimen | + + | Blood | + + Comprehensive Metabolic Panel (08/10/2018) + +-------+ + + + | Component | Value | Ref Range | Performed | Pathologist | | | | | At | Signature | + +-------+ + + + | Globulin | 3.3 | 2.3 - 3.5 g/dL | | | + +-------+ + + + + + | Specimen | + + | Blood | + + External Lab: BUN (08/10/2018) + +-------+ + + + | Component | Value | Ref Range | Performed | Pathologist | | | | | At | Signature | + +-------+ + + + | BUN, | 12 | 7 - 23 | EXTERNAL | | | External | | | LAB | | + +-------+ + + + + +---------+ + + | Performing | Address | City/State/Zipcode | Phone Number | | Organization | | | | + +---------+ + + | EXTERNAL LAB | | | | + +---------+ + + External Lab: Glucose (08/10/2018) + +-------+ + + + | Component | Value | Ref Range | Performed | Pathologist | | | | | At | Signature | + +-------+ + + + | Glucose, | 79 | 71 - 109 | EXTERNAL | | | External | | | LAB | | + +-------+ + + + + +---------+ + + | Performing | Address | City/State/Zipcode | Phone Number | | Organization | | | | + +---------+ + + | EXTERNAL LAB | | | | + +---------+ + + External Lab: ALT (08/10/2018) + +-------+ + + + | Component | Value | Ref Range | Performed | Pathologist | | | | | At | Signature | + +-------+ + + + | ALT, | 33 | 9 - 57 | EXTERNAL | | | External | | | LAB | | + +-------+ + + + + +---------+ + + | Performing | Address | City/State/Zipcode | Phone Number | | Organization | | | | + +---------+ + + | EXTERNAL LAB | | | | + +---------+ + + External Lab: AST (08/10/2018) + +-------+ + + + | Component | Value | Ref Range | Performed | Pathologist | | | | | At | Signature | + +-------+ + + + | AST, | 33 | 14 - 44 | EXTERNAL | | | External | | | LAB | | + +-------+ + + + + +---------+ + + | Performing | Address | City/State/Zipcode | Phone Number | | Organization | | | | + +---------+ + + | EXTERNAL LAB | | | | + +---------+ + + External Lab: Alkaline Phosphatase (08/10/2018) + +-------+ + + + | Component | Value | Ref Range | Performed | Pathologist | | | | | At | Signature | + +-------+ + + + | ALP, | 87 | 45 - 129 | EXTERNAL | | | External | | | LAB | | + +-------+ + + + + +---------+ + + | Performing | Address | City/State/Zipcode | Phone Number | | Organization | | | | + +---------+ + + | EXTERNAL LAB | | | | + +---------+ + + External Lab: Bilirubin, Total (08/10/2018) + +-------+ + + + | Component [...] + +---------+ + + External Lab: Albumin (08/10/2018) + +-------+ + + + | Component | Value | Ref Range | Performed | Pathologist | | | | | At | Signature | + +-------+ + + + | Albumin, | 4.3 | 3.5 - 5 | EXTERNAL | | | External | | | LAB | | + +-------+ + + + + +---------+ + + | Performing | Address | City/State/Zipcode | Phone Number | | Organization | | | | + +---------+ + + | EXTERNAL LAB | | | | + +---------+ + + External Lab: Protein, Total (08/10/2018) + +-------+ + + + | Component | Value | Ref Range | Performed | Pathologist | | | | | At | Signature | + +-------+ + + + | Protein, | 7.6 | 6.5 - 8.2 | EXTERNAL | [...] + +---------+ + + External Lab: Calcium (08/10/2018) + +-------+ + + + | Component | Value | Ref Range | Performed | Pathologist | | | | | At | Signature | + +-------+ + + + | Calcium, | 9.5 | 8.4 - 10.5 | EXTERNAL | | | External | | | LAB | | + +-------+ + + + + +---------+ + + | Performing | Address | City/State/Zipcode | Phone Number | | Organization | | | | + +---------+ + + | EXTERNAL LAB | | | | + +---------+ + + External Lab: CBC (08/10/2018) + +-------+ + + + | Component | Value | Ref Range | Performed | Pathologist | | | | | At | Signature | + +-------+ + + + | Neutrophils | 2.9 | 1.2 - 7 | EXTERNAL | | | , Absolute, | | | LAB | | | External | | | | | + +-------+ + + + + + | Specimen | + + | | + + + +---------+ + + | Performing | Address | City/State/Zipcode | Phone Number | | Organization | | | | + +---------+ + + | EXTERNAL LAB | | | | + +---------+ + + External Lab: CBC (08/10/2018) + +-------+ + + + | Component | Value | Ref Range | Performed | Pathologist | | | | | At | Signature | + +-------+ + + + | Lymphocytes | 2.6 | 0.6 - 3.4 | EXTERNAL | | | , Absolute, | | | LAB | | | External | | | | | + +-------+ + + + | Monocytes, | 0.6 | 0.2 - 1 | EXTERNAL | | | Absolute, | | | LAB | | | External | | | | | + +-------+ + + + | Eosinophils | 0.2 | 0 - 0.5 | EXTERNAL | | | , Absolute | | | LAB | | + +-------+ + + + | Basophils, | 0.0 | 0 - 0.2 | EXTERNAL | | | Absolute | | | LAB | | + +-------+ + + + + +---------+ + + | Performing | Address | City/State/Zipcode | Phone Number | | Organization | | | | + +---------+ + + | EXTERNAL LAB | | | | + +---------+ + + External Lab: TSH (08/10/2018) + +-------+ + + + | Component | Value | Ref Range | Performed | Pathologist | | | | | At | Signature | + +-------+ + + + | TSH, | 2.270 | 0.3 - 4.25 | EXTERNAL | | | External | [...] + +---------+ + + External Lab: Triglycerides (08/10/2018) + +-------+ + + + | Component | Value | Ref Range | Performed | Pathologist | | | | | At | Signature | + +-------+ + + + | Triglycerid | 75 | 51 - 152 | EXTERNAL | | | [...] +---------+ + + External Lab: Cholesterol, HDL (08/10/2018) + +-------+ + + + | Component | Value | Ref Range | Performed | Pathologist | | | | | At | Signature | + +-------+ + + + | HDL | 56 | 35 - 80 mg/dl | EXTERNAL [...] +---------+ + + External Lab: Cholesterol, Total (08/10/2018) + +-------+ + + + | Component | Value | Ref Range | Performed | Pathologist | | | | | At | Signature | + +-------+ + + + | Cholesterol | 166 | 50 - 200 mg/dl | EXTERNAL [...] +---------+ + + External Lab: Cholesterol, LDL (08/10/2018) + +-------+ + + + | Component | Value | Ref Range | Performed | Pathologist | | | | | At | Signature | + +-------+ + + + | LDL | 95 | 0 - 130 | EXTERNAL | [...] + +---------+ + + External Lab: eGFR (08/10/2018) + +-------+ + + + | Component | Value | Ref Range | Performed | Pathologist | | | | | At | Signature | + +-------+ + + + | eGFR, | 83.4 | 60 - 99,999 | EXTERNAL | [...] + +---------+ + + External Lab: Creatinine (08/10/2018) + +-------+ + + + | Component [...] | + +---------+ + + External Lab: Urinalysis (08/10/2018) + + + + + + | Component | Value | Ref Range | Performed | Pathologist | | | | | At | Signature | + + + + + + | UA Glucose, | Negative | | EXTERNAL | | [...] Negative | | EXTERNAL | | | Proteins, | | | LAB | | | External | | | | | + + + + + + | UA Specific | 1.008 | 1.001 - 1.03 | EXTERNAL | | | Riva, | | | LAB | | | [...] | + +---------+ + + External Lab: CBC (08/10/2018) + +-------+ + + + | Component | Value | Ref Range | Performed | Pathologist | | | | | At | Signature | + +-------+ + + + | WBC, | 6.2 | 3 - 10.6 | EXTERNAL | | | External | | | LAB | | + +-------+ + + + | HGB, | 12.8 | 11.8 - 17.1 | EXTERNAL | | | External | | | LAB | | + +-------+ + + + | HCT, | 38.4 | 36 - 51 | EXTERNAL | | | External | | | LAB | | + +-------+ + + + | PLT, | 220 | 150 - 400 | EXTERNAL | | | External | | | LAB | | + +-------+ + + + | Neutrophils | 46.2 | 44 - 74 | EXTERNAL | | | %, | | | LAB | | | External | | | | | + +-------+ + + + | Lymphocytes | 41.2 | 15 - 42 | EXTERNAL | | | %, | | | LAB | | | External | | | | | + +-------+ + + + | Monocytes | 9.6 | 4 - 13 | EXTERNAL | | | %, External | | | LAB | | + +-------+ + + + | Eosinophils | 2.4 | 0 - 7 | EXTERNAL | | | %, | | | LAB | | | External | | | | | + +-------+ + + + | RBC, | 3.98 | 3.86 - 5.7 | EXTERNAL | | | External | | | LAB | | + +-------+ + + + | MCV, | 97 | 81 - 102 | EXTERNAL | | | External | | | LAB | | + +-------+ + + + | RDW, | 13.6 | 11.2 - 16.2 | EXTERNAL | [...]
--- OUTSIDE RECORDS SUMMARY | ~2019-09-03 | XMS | Encounter Summary ---
Demographics + + + | Address | [address] | | | [place] [address] | + + + | Home Phone | | + + + | Preferred Language | Unknown | + + + | Marital Status | | + + + | Islam Affiliation | Unknown | + + + | Race | Unknown | + + + | Ethnic Group | Unknown | + + + Author + + + | Author | [facility] | | | and [place] | + + + | Organization | [facility] | | | and [...] Team Providers + +------+ + | Care Nurse Paralegal Name | Role | Phone | + +------+ + | Dacia Johnson MD | PCP | | + +------+ + Encounter Details +--------+ + + + + | Date | Type | Department | Care Team | Description | +--------+ + + + + | 07/28/ | Episode | [facility] | Katie Zuleta, | | | 2017 | Changes | GASTROENTEROLOGY | RN | | | | | [address] [place] | | | | | | [address] | | | | | | [address] | | | | | | [phone] | | | +--------+ + + + [...]
--- OUTSIDE RECORDS SUMMARY | ~2019-09-03 | XMS | Clinical Summary ---
Demographics + + + | Address | [address] | | | [place] [address] | + + + | Home Phone | | + + + | Preferred Language | Unknown | + + + | Marital Status | | + + + | Advent Affiliation | Unknown | + + + | Race | Unknown | + + + | Ethnic Group | Unknown | + + + Author + + + | Author | [facility] | | | and [place] | + + + | Organization | [facility] | | | and [place] [...] Team Providers + +------+ + | Care Software Database Architect Name | Role | Phone | + +------+ + | Unknown, Physician | PCP | | + +------+ + Allergies + + + + + + | Active Allergy | Reactions | Severity | Noted | Comments | | | | | Date | | + + + + + + | Amlodipine | Other (See Comments) | | 09/02/19 | Results: Unknown | | | | | 19 | | + + + + + + | Clonidine | Other (See Comments) | | 09/02/19 | Reaction: Unknown | | | | | 19 | | + + + + + + Medications + + + +---------+------+------+-------+ | Medication | Sig | Dispensed | Refills | Star | End | Statu | | | | | | t | Date | s | | | | | | Date | | | + + + +---------+------+------+-------+ | lisinopril | Take 10 mg by mouth | | 0 | | | Activ | | (PRINIVIL, ZESTRIL) | Daily. | | | | | e | | 5 mg tablet | | | | | | | + + + +---------+------+------+-------+ | MAGNESIUM OXIDE PO | Take 420 mg by mouth | | 0 | | | Activ | | | Daily. | | | | | e | + + + +---------+------+------+-------+ | omeprazole | Take 20 mg by mouth | | 0 | | | Activ | | (PRILOSEC) 20 mg | every morning | | | | | e | | capsule | (before breakfast). | | | | | | + + + +---------+------+------+-------+ | cholecalciferol | Take 1,000 Units by | | 0 | | | Activ | | (VITAMIN D-3) 1,000 | mouth Daily. | | | | | e | | units tablet | | | | | | | + + + +---------+------+------+-------+ | folic acid 1 mg | Take 1 mg by mouth | | 0 | | | Activ | | tablet | Daily. | | | | | e | + + + +---------+------+------+-------+ | spironolactone | Take 25 mg by mouth | | 0 | | | Activ | | (ALDACTONE) 25 mg | Daily. | | | | | e | | tablet | | | | | | | + + + +---------+------+------+-------+ | | Take 12.5 mg by | | 0 | | | Activ | | hydroCHLOROthiazide | mouth Daily. 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 | 2017 | + + + | Hx of colonic polyp | 2017 | + + + Family History + +------+ + + | Relation | Name | Status | Comments | + +------+ + + | Brother | | Alive | | + +------+ + + | Brother | | Alive | | + +------+ + + | Brother | | Alive | | + +------+ + + | Brother | | Alive | | + +------+ + + | Brother | | | | + +------+ + + | Father | | | | + +------+ + + | Mother | | | | + +------+ + + | Sister | | Alive | | + +------+ + + | Sister | | Alive | | + +------+ + + | Sister | | Alive | | + +------+ + + | Sister | | Alive | | + +------+ + + Social History + + + [...] on file | | + + + Last Filed Vital Signs + + + [...] | | + + + + + Plan of Treatment + + + + + | Health Maintenance | Due Date | Last | Comments | | | | Done | | + + + + + | Hepatitis C | | | | | Screening | 9 | | | + + + + + | Vaccine: | | | | | Dtap/Tdap/Td (1 - | 8 | | | | Tdap) | | | | + + + + + | Vaccine: Zoster (1 | | | | | of 2) | 9 | | | + + + + + | Vaccine: | | | | | Pneumococcal 65+ (1 | 4 | | | | of 1 - PPSV23) | | | | + + + + + | Adult Annual | | | | | Wellness Visit | 5 | | | + + + + + | Vaccine: Influenza | | | | | (#1) | 0 | | | + + + + + | Colorectal Cancer | | 08/02/19 | | | Screening | 8 | 18, | | | (Colonoscopy) | | 06/08/19 | | | | | 14 | | + + + + + | AAA Screening | Completed | 11/18/19 | | | | | 19, | | | | | 08/01/19 | | | | | 19, | | | | | 07/02/19 | | | | | 18, | | | | | Addition | | | | | al | | | | | history | | | | | exists | | + + + + + Results Not on filefrom Last 3 Months Insurance + +--------+ +--------+ +---------+--------+ | Payer | Benefi | Subscriber | Effect | Phone | Address | Type | | | t Plan | ID | jay | | | | | | / | | Dates | | | | | | Group | | | | | | + +--------+ +--------+ +---------+--------+ | [employer] [place] | [id number] | 02/24/19 | | | Indemn | | | COMMUN | | -Pre | | | ity | | | ITY | | sent | | | | | | CARE | | | | | | + +--------+ +--------+ +---------+--------+ | [employer] | [employer] | [id number] | 02/07/ | | | Indemn | | | [place] | | 2016-P | | | ity | | | LIFE | | resent | | | | | | MDCR | | | | | | | | SUPPL | | | | | | + +--------+ +--------+ +---------+--------+ | [employer] | [place] | [id number] | 02/24/19 | | | Indemn | | | NS | | 15-Pre | | | ity | | | ADMIN | | sent | | | | | | [place] | | | | | | | | [place] | | | | | | + +--------+ +--------+ +---------+--------+ | MEDICARE | MEDICA | [id number] | 02/24/19 | [phone] | | Medica | | | RE | | 14-Pre | 5 | | re | | | PART A | | sent | | | | + +--------+ +--------+ +---------+--------+ | MEDICARE | MEDICA | [id number] | 02/09/ | [phone] | | Medica | | | RE | | 2019-P | 5 | | re | | | PART A | | resent | | | | + +--------+ +--------+ +---------+--------+ + +--------+ +--------+ + + | Guarantor Name | Accoun | Relation to | Date | Phone | Billing Address | | | t Type | Patient | of | | | | | | | | | | + +--------+ +--------+ + + | Evan Major | Person | Self [birth year] | [address] | | [place] | [place] | | 1951 | [phone] | [place] [address] | | | poncho | | | 7 (Home) | | + +--------+ +--------+ + + Advance Directives + + + + + | Type | Date Recorded | Patient | Explanation | | | | Parts Coordinator | | + + + + + | Power of | | | | | Prepper | | | | + + + + + | Power of | | | | | Prepper | | | | + + + + + | Advance | 08/01/2017 3:10 | | | | Directive | PM | | | + + + + + | Advance | | | | | Directive | | | | + + + + +
--- OUTSIDE RECORDS SUMMARY | ~2019-09-03 | XMS | Encounter Summary ---
Demographics + + + | Address | [address] | | | [place] [address] | + + + | Home Phone | | + + + | Preferred Language | Unknown | + + + | Marital Status | | + + + | Episcopal Affiliation | Unknown | + + + | Race | Unknown | + + + | Ethnic Group | Unknown | + + + Author + + + | Author | [facility] | | | and [place] | + + + | Organization | [facility] | | | and [...] Team Providers + +------+ + | Care Dean Of Girls Name | Role | Phone | + +------+ + PCP | Unavailable | + +------+ + Encounter Details +--------+ + + + + | Date | Type | Department | Care Team | Description | +--------+ + + + + | 12/26/ | Hospital | [facility] | Cipriano Stroud, | | | 2009 - | Encounter | MED [facility] [address] | [address] | | | | | [place], | [address] [facility] [place] | | | 12/28/ | | [place] [address] | [address] | | | 2009 | | [phone] | | | +--------+ + + + [...]
--- OUTSIDE RECORDS SUMMARY | ~2019-09-03 | XMS | Encounter Summary ---
Demographics + + + | Address | [address] | | | [place] [address] | + + + | Home Phone | | + + + | Preferred Language | Unknown | + + + | Marital Status | | + + + | Lutheran Affiliation | Unknown | + + + | Race | Unknown | + + + | Ethnic Group | Unknown | + + + Author + + + | Author | [facility] | | | and [place] | + + + | Organization | [facility] | | | and [place] [...] Team Providers + +------+ + | Care Flatbed Driver Name | Role | Phone | + [...] | [address] | [place] [address] | | | | | [place] [address] | | | | | | [phone] | | | +--------+ + + + [...] CT ABDOMEN PELVIS W | Routin | 12/02/2012 | | Results for this | | CONTRAST | e | 12:00 AM | | procedure are in the | | | | PDT | | results section. | + +--------+ + + + documented in this encounter Results CT Abdomen Pelvis w Contrast (12/02/2012 12:00 AM PDT) + + | Specimen [...]
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
--- OUTSIDE RECORDS SUMMARY | ~2019-09-03 | XMS | Encounter Summary ---
Demographics + + + | Address | [address] | | | [place] [address] | + + + | Home Phone | | + + + | Preferred Language | Unknown | + + + | Marital Status | | + + + | Rastafari Affiliation | Unknown | + + + | Race | Unknown | + + + | Ethnic Group | Unknown | + + + Author + + + | Author | [facility] | | | and [place] | + + + | Organization | [facility] | | | and [place] | [...] Team Providers + +------+ + | Care Oyster Grader Name | Role | Phone | + +------+ + PCP | Unavailable | + +------+ + Encounter Details +--------+ + + + + | Date | Type | Department | Care Team | Description | +--------+ + + + + | 02/02/ | Hospital | [facility] | | | | 1998 | Encounter | MED CTR XRAY [address] | | | | | | [place] | | | | | | [place] [address] | | | | | | [phone] | | | +--------+ + + + [...]
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
--- OUTSIDE RECORDS SUMMARY | ~2019-09-03 | XMS | Encounter Summary ---
Demographics + + + | Address | [address] | | | [place] [address] | + + + | Home Phone | | + + + | Preferred Language | Unknown | + + + | Marital Status | | + + + | Judaism Affiliation | Unknown | + + + | Race | Unknown | + + + | Ethnic Group | Unknown | + + + Author + + + | Author | [facility] | | | and [place] | + + + | Organization | [facility] | | | and [place] [...] Team Providers + +------+ + | Care Inspectors And Regulatory Officers Name | Role | Phone | + [...] | [address] [place] | [place] [address] | | | | | [place] [address] | | | | | | [phone] | | | +--------+ + + + [...] | + +--------+ + + + | US ABDOMEN COMPLETE | Routin | 09/03/2012 | | | | | e | 12:00 AM | | | | | | PDT | | | + +--------+ + + + documented in this encounter Results US Abdomen Complete (09/03/2012 12:00 AM PDT) + + | Specimen [...]
--- NOTE | 2019-09-04 09:12 | EKG ---
[facility] [address] [facility] [place], [place] [address] Signed Normal sinus rhythm Normal ECG No previous ECGs available Confirmed by ELYSSA YANG MD ([id number]) on 09/04/2019 9:12:43 AM Electronically Signed By: ELYSSA YANG MD 09/04/19911 PATIENT NAME: CYNDI EDWARDS Electrocardiogram DATE OF : 46 PHYSICIAN: ELYSSA YANG MD REPORT #: [id number] REPORT IS CONFIDENTIAL AND NOT TO BE RELEASED WITHOUT AUTHORIZATION
== END 2019-09-03 12:49 | disposition home or self-care (01) ==
LOC: ED 11:23
DX: R07.9 Chest pain, unspecified (principal); I10 Essential (primary) hypertension; Z79.899 Other long term (current) drug therapy
CPT/HCPCS: 71045; 80053; 84484; 85025; 85379; 93005; 93010; 99285-25; A9270

== ENCOUNTER 2021-09-22 06:26 | Inpatient (IN) | payer OTHER ==
[~2021-09-22] VITALS: Ht 180.3 cm; Wt 75.9 kg
--- OUTSIDE RECORDS SUMMARY | 2021-09-22 06:28 | XMS ---
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 [place] VISIT COUNT (12 MO.) Sharlene Heard TOTAL 1 NOTE: Visits indicate total known visits. ED/UCC VISIT TRACKING (12 MO.) 09/22/2021 06:26 [facility] [place] TYPE: Emergency COMPLAINT: - MULTIPLE COMPLAINTS INPATIENT VISIT TRACKING (12 MO.) No inpatient visits to display in this time frame [id number]
[2021-09-22] MEDS ORDERED: OMEPRAZOLE20 MG PO (07:11)
[2021-09-22] MEDS ORDERED: NORVASC10 MG PO (07:11)
[2021-09-22] MEDS ORDERED: GABAPENTIN300 MG PO (07:11)
--- NOTE | 2021-09-22 15:30 | NUR ---
71 YEAR OLD MALE PATIENT ADMITTED TO CCU FROM ED VIA STRETCHER UNDER DR. WALLACE WITH DX OF POST SEIZURE. SEE ER NOTE FOR HX. UPON ADMIT PATIENT IS ABLE TO ANSWER FEW QUESTIONS. IN ROOM AND IS ABLE TO HELP WITH ADMISSION PROCESS. PATIENT C/O CHEST PAIN DID RECIEVE ONE ROUND OF CARDIAC COMPRESSION IN ED. NO SEIZURE ACTIVITY NOTED.
--- NOTE | 2021-09-22 16:30 | NUR ---
STOOD AT BEDSIDE TO VOID. FAIRLY STABLE ON FEET. NEEDS MUCH DIRECTION. VOIDED 200 ML OF CLEAR YELLOW URINE. BACK TO BED. UPON REURN TO BED, C/O INCREASED CHEST DISCOMFORT WITH MOVEMENT. HAS LOOSE NON-PRODUCTIVE COUGH. IVF INFUSING.
--- NOTE | 2021-09-22 17:15 | NUR ---
STOOD AT BEDSIDE IN ATTEMPT TO URINATE, UNABLE TO VOID, BACK TO BED.
--- NOTE | 2021-09-22 17:32 | NUR ---
SLEEPING NOW. REMAINS IN ROOM.
--- NOTE | 2021-09-22 18:09 | NUR ---
NO CHANGES AT THIS TIME.
--- NOTE | 2021-09-22 18:18 | NUR ---
ATTEMPTING TO GET OOB TO VOID, BED ALARM GOING OFF. ASSISTED PATIENT TO STAND AT BEDSIDE. PATIENT WAS ABLE TO VOID TO URINAL. IS IMPULSIVE.
--- NOTE | 2021-09-22 18:23 | EKG ---
[facility] [address] [facility] [place] [address] Signed Undetermined rhythm Otherwise normal ECG When compared with ECG of 03-SEP-2019 11:30, Current undetermined rhythm precludes rhythm comparison, needs review T wave amplitude has decreased in Lateral leads Confirmed by TIM WALLACE MD ([id number]) on 09/22/2021 6:22:58 PM Electronically Signed By: TIM WALLACE MD 09/22/211822 PATIENT NAME: CYNDI EDWARDS Electrocardiogram DATE OF : 46 PHYSICIAN: TIM WALLACE MD REPORT #: [id number] REPORT IS CONFIDENTIAL AND NOT TO BE RELEASED WITHOUT AUTHORIZATION
--- NOTE | 2021-09-22 20:10 | NUR ---
PT ATTEMPTED TO GET OUT OF BED ON OWN. BED ALARM WENT OFF. PT ASSISTED WITH VOIDING INTO URINAL BY LOLITA MYERS. PT SETTLED BACK IN TO BED. PT PLACED ON ROOM AIR, SPO2 MAINTAINING AT 92%. LOLITA MYERS ASSISTED WITH STARTING PT'S SCHEDULED MEDICATIONS AND ADMINISTERED PRN TYLENOL (SEE MAR). PT ASSESSMENT THEN COMPLETED AT THIS TIME. PT AWAKE AND ORIENTED TO SELF AND SURROUNDINGS BUT NOT DATE OR EVENT. PT REORIENTED AT THIS TIME AND INSTRUCTED TO USE THE CALL LIGHT FOR ASSISTANCE. ASSESSMENT THEN COMPLETED. T HEART RATE REGULAR, LUNGS CLEAR THROUGHOUT, ABDOMEN SOFT, BOWEL TONES ACTIVE. PULSES STRONG, PT DENIES NUMBNESS OR TINGLING TO EXTREMITIES WHEN ASKED. AFTERWARDS PT WAS NOTED TO DESATURATE AND MAINTAIN AN SPO2 AT 88% ON ROOM AIR. PT PLACED BACK ON 2L O2 NC. PT REPORTS NO FURTHER NEEDS WHEN ASKED AND REMAINS RESTING IN BED. CALL LIGHT IN REACH, BED IN LOWEST POSITION, BED ALARM ON, IV ABX AND IVF INFUSING, WILL CONTINUE PLAN OF CARE.
--- NOTE | 2021-09-22 23:07 | NUR ---
PT NOTED TO BE SITTING A THE SIDE OF THE BED. HOG RAISER AND LOLITA GALLEGOS IN ROOM WITH PT AND STATED PT HAD ATTEMPTED TO GET OUT OF BED AND HAD PULLED OUT HIS R SIDE IV. HOG RAISER AND LOLITA GALLEGOS ASSISTED IN CLEANING ROOM, CHANGING SHEETS, CLEANING PT, AND APPLYING GAUZE/COBAN TO PT'S ARM. PT NOW RESTING IN BED, IVF INFUSINT INTO LEFT IV, PT ON 2L O2 NC. PT AWAKE AND ALERT AND STATED HE HAD BEEN TRYING TO USE THE URINAL, PT DENIES THE NEED TO VOID AT THIS TIME WHEN ASKED. VITALS THEN TAKEN AND ASSESSMENT COMPLETED (SEE CHART). PT REPORTS NO NEEDS WHEN ASKED AT THIS TIME AND WAS INSTRUCTED TO USE THE CALL LIGHT IF HE NEEDED FURTHER ASSISTANCE. CALL LIGHT IN REACH, BED IN LOWEST POSITION, BED ALARM ON, WILL CONTINUE PLAN OF CARE.
--- NOTE | 2021-09-23 00:57 | NUR ---
PT USED CALL LIGHT AT THIS TIME. PT AWAKE IN BED ON ROOM AIR AT THIS TIME AND HAD TAKEN OFF HIS OXYGEN. PT PLACED BACK ON 2L O2 NC. PT STATED HE NEEDED TO VOID. PT ASSISTED IN USING URINAL TO VOID. PT HAS COMPLAINTS OF CHEST WALL PAIN 10/03. PRN NORCO ADMINISTERED AT HTIS TIME (SEE MAR). ECG LEADS REPLACED AT THIS TIME. AFTERWARDS PT REPORTED NAUSEA AND STATED HE FELT IF HE HAD TO VOMIT. PRN ZOFRAN ADMINISTERED (SEE MAR). PT DID NOT HAVE ANY EMESIS. PT NOW RESTING IN BED, IVF INFUSING AT ORDERED RATE. PT ON 2L O2 NC, SPO2 96%. PT REPORTS NO FURTHER NEEDS WHEN ASKED, WILL CONTINUE PLAN OF CARE. CALL LIGHT IN REACH, BED IN LOWEST POSITION, BED ALARM ON.
--- NOTE | 2021-09-23 02:35 | NUR ---
PT IN BED RESTING WITH EYES CLOSED IN NO APPARENT DISTRESS. PT ON 2L NC, IVF INFUSING. NEW BAG OF IVF AND SCHEDULED IV ABX STARTED AT THIS TIME (SEE MAR). PT AWOKE BRIEFLY AND REPORTED NO NEEDS WHEN ASKED. WILL CONTINUE PLAN OF CARE. CALL LIGHT IN REACH, BED IN LOWEST POSITION, BED ALARM ON.
--- NOTE | 2021-09-23 04:04 | NUR ---
PT ATTEMPTED TO GET OUT OF BED, BED ALARM GOING OFF. PT SITTING UP IN BED AND STATED HE NEEDED TO VOID. PT ASSISTED IN USING URINAL AND IS NOW RESTING IN BED. VITALS TAKEN AND ASSESSMENT COMPLETED AT THIS TIME (SEE CHART). PT AWAKE, ORIENTED TO SELF AND LOCATION BUT NOT EVENT OR DATE/YEAR. PT REORIENTED AT THIS TIME. PT PLACED ON 2L O2 NC HE HAD TAKEN IT OFF, SPO2 93%. PT REPORTS NO FURTHER NEEDS AT THIS TIME AND REMAINS RESTING IN BED. CALL LIGHT WITHIN REACH, BED IN LOWEST POSITION, BED ALARM ON, WILL CONTINUE PLAN OF CARE.
--- NOTE | 2021-09-23 06:24 | NUR ---
PT RESTING IN BED AND AWOKE EASILY. IVF INFUSING ORDERED. PT REPORTS CHESTWALL PAIN WHEN ASKED AND STATED YES WHEN ASKED IF HE WANTED PAIN MEDICATION. PRN NORCO ADMINISTERED (SEE MAR). PT ABLE TO TAKE PO MEDICTION AND DRINK WATER WITHOUT DIFFICULTY. PT REMAINS RESTING IN BED AND REPORTS NO FURTHER NEEDS. CALL LIGHT IN REACH, BED IN LOWEST POSITION, BED ALARM ON, PT ON 2L O2 NC, SPO2 94%. WILL CONTINUE PLAN OF CARE.
--- NOTE | 2021-09-23 07:30 | NUR ---
REPORT RECIEVED. PATIENT IS RESTING IN BED. NO DISTRESS NOTED.
--- NOTE | 2021-09-23 09:00 | NUR ---
DR. WALLACE HERE TO SEE PATIENT. TRANSFER ORDERS TO MED-SURG RECIEVED.
--- NOTE | 2021-09-23 09:55 | NUR ---
CONTINUES TO SIT IN CHAIR. NO CHANGES.
--- NOTE | 2021-09-23 10:37 | NUR ---
REPORT FROM LOLITA LOPEZ.
--- NOTE | 2021-09-23 11:12 | NUR ---
PATIENT TO MED SURG VIA CHAIR. PATIENT IS SITTING UP, VISITING WITH FAMILY. PATIENT REPORTS STERNAL PAIN 9/10 AND GIVEN BLANKET TO HELP SPLINT WITH COUGH. VITALS ARE DONE, IVF INFUSING TO LEFT ARM. PATIENT CONTINUES WITH MILD CONFUSION, FOLLOW DIRESTIONS WELL.
--- NOTE | 2021-09-23 13:53 | NUR ---
PATIENT PULLED LEFT ARM IV, SEEMED CONFUSED AND REPORTED THAT HE WALKED TO BATHROOM INDEPENDANTLY. BED ALARM IS ON, NEW IV TO RIGHT ARM. IVF AND IV ZOSYN INFUSING.
--- NOTE | 2021-09-23 15:15 | NUR ---
MULTIPLE ATTEMPTS TO KEEP TELE ON PATIENT, CALL TO DR. WALLACE TO LET HER KNOW AND SHE INDICATED THAT WE COULD LEAVE IT OFF. TELE IS CURRENTLY ON STANDBY. PATIENT IS MODERATELY CONFUSED AT THIS TIME. RIGHT IV IS SALINE LOCKED AND COBAN TO COVER. BED ALARM IS ON.
--- NOTE | 2021-09-23 16:14 | NUR ---
MED REC COMPLETE
--- NOTE | 2021-09-23 17:51 | NUR ---
PATIENT GIVEN IV ZOFRAN FOR NAUSEA. IN ROOM.
--- NOTE | 2021-09-23 19:51 | NUR ---
Patient in bed w/family. Patient very impulsive. Continues to walk around room. Does not call for assistance. Putting on clothes and asking to go outside. Patient is compliant with demands, but quickly forgets. Family is attempting to distract patient for cares to be performed.
--- NOTE | 2021-09-24 02:17 | NUR ---
Nurse at bedside as antibiotic infuses. Patient needs constant reminding to keep his arm straight for fluids to infuse through line. Patient constantly acting on impulses. Attempts to remove IV line often. Is compliant with demands, but quickly forgets commands. Bed alarm is on. Patient does not call for help.
--- NOTE | 2021-09-24 05:33 | NUR ---
Patient has remained very confused, impulsive, on shift. Has slept well during the night. Was able to infuse scheduled antibiotics. Patient ambulates w/SBA. Needs verbal cuing. IV remains in right AC. Bed alarm in place.
--- NOTE | 2021-09-24 07:30 | NUR ---
THIS RN GIVEN SHIFT REPORT FROM LOLITA POP. PATIENT RESTING QUIETLY IN BED, EYES CLOSED, RESPIRATIONS ARE REGULAR AND EVEN, BED ALARM IS ON, AND CALL LIGHT IS IN REACH. PATIENT HAS NO CURRENT CARE NEEDS FROM THIS RN AT THIS TIME.
--- NOTE | 2021-09-24 08:50 | NUR ---
THIS RN IN TO SEE PATIENT AND AM ASSESSMENT COMPLETE. PATIENT'S LUNGS ARE DIM IN THE BILAT BASES AND EXPIRATORY WHEEZES WHEN LAYING DOWN IN THE UPPER LOBES, BUT MORE CLEAR WHEN SETTING UP. PATIENT C/O 10/10 CHEST PAIN FROM POST CPR. 1 PO PAIN PILL GIVEN WITH AM MEDS. IV REINFORCED FOR IV ANTIBIOTIC. PATIENT HAS NO OTHER CARE NEEDS AT THIS TIME. PRN IV B/P MED GIVEN FOR SBP GREATER THAN 160. CALL LIGHT IS IN REACH.
[2021-09-24] MEDS ORDERED: AMOX TR-K CLV1 EAC1 PO (08:57)
--- NOTE | 2021-09-24 10:25 | NUR ---
THIS RN DC'D PATIENT TO HOME IN HIS WIFES CARE. VS STABLE, IV DC'D INTACT BY LOLITA ROACH. PATIENT TAKEN TO THE FRONT OF THE HOSPITAL IN WHEELCHAIR BY PATRIZIA TRIANA.
== END 2021-09-24 10:25 | disposition home or self-care (01) | DRG 100 ==
LOC: ED 06:26 → CCU 14:50 → MS 14:50
PROVIDERS: ADMIT Internal Medicine; ATTEND Internal Medicine
DX: R56.9 Unspecified convulsions (principal); J96.01 Acute respiratory failure with hypoxia; Z20.822 Contact with and (suspected) exposure to COVID-19; I10 Essential (primary) hypertension; M54.9 Dorsalgia, unspecified; F03.90 Unspecified dementia, unspecified severity, without behavioral disturbance, psychotic disturbance, mood disturbance, and anxiety; T17.908A Unspecified foreign body in respiratory tract, part unspecified causing other injury, initial encounter; Z96.653 Presence of artificial knee joint, bilateral; Z85.118 Personal history of other malignant neoplasm of bronchus and lung; Z90.2 Acquired absence of lung [part of]; Z79.899 Other long term (current) drug therapy; X58.XXXA Exposure to other specified factors, initial encounter
CPT/HCPCS: 36415; 51702; 70450; 71045; 71260; 74177; 80048; 80053; 81001; 82150; 82553; 82803; 83605; 83690; 83735; 84484; 85025; 87502; 93005; 93010; 94002; 99285-25; A9270; C9113; C9803; G0480; J0171; J0295; J0360; J0461; J1650; J1885; J2405; J2704; J3010; J3480; J7030; Q9967; U0003

== ENCOUNTER 2021-09-30 10:18 | Emergency (ER) | payer OTHER ==
[~2021-09-30] VITALS: Ht 180.3 cm; Wt 76.1 kg
[~2021-09-30 10:18] MED LIST changes: +AMOX TR-K CLV1 EAC1 PO; +GABAPENTIN300 MG PO; +NORVASC10 MG PO; +OMEPRAZOLE20 MG PO
--- OUTSIDE RECORDS SUMMARY | 2021-09-30 10:20 | XMS ---
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 [place] VISIT COUNT (12 MO.) 2 [facility] TOTAL 2 NOTE: Visits indicate total known visits. ED/UCC VISIT TRACKING (12 MO.) 09/30/2021 10:19 [facility] [place] TYPE: Emergency COMPLAINT: - L LEG PAIN 09/22/2021 06:26 [facility] [place] TYPE: Emergency COMPLAINT: - MULTIPLE COMPLAINTS INPATIENT VISIT TRACKING (12 MO.) 09/22/2021 14:[address] 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 - Acquired absence of lung [part of] - Unspecified convulsions - Acute respiratory failure with hypoxia - Acquired absence of lung [part of] - Unspecified convulsions - Personal history of other malignant neoplasm of bronchus and lung - Contact with and (suspected) exposure to COVID-19 - Exposure to other specified factors, initial encounter - Dorsalgia, unspecified - Contact with and (suspected) exposure to COVID-19 - Presence of artificial knee joint, bilateral - Other terminal gauger (current) drug therapy - Personal history of other malignant neoplasm of bronchus and lung - Unspecified dementia without behavioral disturbance - Presence of artificial knee joint, bilateral - Dorsalgia, unspecified - Unspecified foreign body in respiratory tract, part unspecified causing other injury, initial encounter - Exposure to other specified factors, initial encounter - Unspecified dementia without behavioral disturbance - Essential (primary) hypertension - Unspecified foreign body in respiratory tract, part unspecified causing other injury, initial encounter [email or web address]
[2021-09-30] MEDS ORDERED: HYDROCODON-ACE1 EA10 PO (12:03)
[2021-09-30] MEDS ORDERED: PREDNISONE20 MG PO (12:03)
== END 2021-09-30 12:20 | disposition home or self-care (01) ==
LOC: ED 10:18
DX: M54.42 Lumbago with sciatica, left side (principal); I10 Essential (primary) hypertension; Z79.899 Other long term (current) drug therapy
CPT/HCPCS: 99283

== ENCOUNTER 2023-02-19 06:32 | Emergency (ER) | payer OTHER ==
[~2023-02-19] VITALS: Ht 180.3 cm; Wt 76.3 kg
[~2023-02-19 06:32] MED LIST changes: +HYDROCODON-ACE1 EA10 PO; +HYDROCODON-ACE1 EA11 PO; +PREDNISONE20 MG PO; +TADALAFIL20 M1 PO
[2023-02-19] MEDS ORDERED: LORazepam 2 MG/ML VIAL IV ONE (06:45)
[2023-02-19] MEDS ORDERED: levETIRAcetam 500 MG/5 ML VIAL IV ONE (06:45)
[2023-02-19 06:53] LABS: BASOPHILS 0.7 % (0-2); EOSINOPHILS 0.7 % (0-6); HEMATOCRIT 37.3 % (35.0-50.0); HEMOGLOBIN 12.7 g/dL (12.0-18.0); LYMPHOCYTES 28.6 % (24-44); MONOCYTES 10.8 % (0-12); NEUTROPHILS 59.2 % (39-80); PLATELET COUNT 177 K/uL (140-440); RBC 3.74 M/ul (4.3-5.7); RDW 13.5 (10.5-15.0)
[2023-02-19 07:08] LABS: ALBUMIN/GLOBULIN RATIO 0.79 (1.1-2.4); ANION GAP 15.5 (7-21); BILIRUBIN, TOTAL 0.3 ng/dL (0.2-1.0); BUN/CREATININE RATIO 11.21 (6.0-28.6); CALCIUM 8.5 mg/dL (8.5-10.1); CREATININE, SERUM 1.07 mg/dL (0.70-1.30); POTASSIUM 2.5 mmol/L (3.5-5.1); PROTEIN, TOTAL 6.8 g/dL (6.4-8.2)
[2023-02-19] MEDS ORDERED: POTASSIUM CHLORIDE 10 MEQ/100 ML BAG IV SCH (07:30)
[2023-02-19] MEDS ORDERED: MULTIVITAMINS 10 ML,FOLIC ACID 1 MG,THIAMINE HCL 100 MG in SODIUM CHLORIDE 0.9% 1,000 ML IV ONE (07:30)
[2023-02-19 09:31] LABS: BILIRUBIN, URINE NEGATIVE (negative); BLOOD/HGB, URINE NEGATIVE (Negative); KETONE, URINE NEGATIVE (Negative); LEUK ESTERASE, URINE NEGATIVE (negative); NITRITE, URINE NEGATIVE (negative)
[2023-02-19 09:53] LABS: AMPHETAMINES, URINE NEGATIVE (NEGATIVE); BARBITURATES, URINE NEGATIVE (NEGATIVE); BENZODIAZEPINE, URINE NEGATIVE (NEGATIVE); BUPRENORPHINE, URINE NEGATIVE (NEGATIVE); CANNABINOID, URINE POSITIVE (NEGATIVE); COCAINE, URINE NEGATIVE (NEGATIVE); ECSTASY, URINE NEGATIVE (NEGATIVE); FENTANYL, URINE NEGATIVE (NEGATIVE); METHADONE, URINE NEGATIVE (NEGATIVE); OPIATES, URINE NEGATIVE (NEGATIVE); OXYCODONE, URINE NEGATIVE (NEGATIVE); PHENCYCLIDINE, URINE NEGATIVE (NEGATIVE)
[2023-02-19] MEDS ORDERED: levETIRAcetam 500 MG TAB PO ONE (13:45)
[2023-02-19] MEDS ORDERED: CHLORDIAZEPOXIDE 25 MG CAP PO ONE (13:45)
[2023-02-19] MEDS ORDERED: KEPPRA500 MG PO (13:50)
[2023-02-19] MEDS ORDERED: CHLORDIAZEPOXID25 MG PO (13:50)
[2023-02-19 13:56] VITALS: BP 146/108
== END 2023-02-19 13:58 | disposition home or self-care (01) ==
LOC: ED 06:32
PROVIDERS: Family Medicine
DX: R56.9 Unspecified convulsions (principal); F10.10 Alcohol abuse, uncomplicated; I10 Essential (primary) hypertension; Z96.653 Presence of artificial knee joint, bilateral; Z79.899 Other long term (current) drug therapy
CPT/HCPCS: 36415; 80053; 80307; 81003; 83735; 85025; 96374; 96375; 99284-25; G0480; J1953; J2060; J3411; J3480; J7030

== ENCOUNTER 2023-02-24 14:50 | Inpatient (IN) | payer OTHER ==
[2023-02-24] VITALS (7 sets, daily range): BP systolic 97–153; BP diastolic 62–92
[~2023-02-24] VITALS: Ht 180.3 cm; Wt 76.7 kg
[~2023-02-24 14:50] MED LIST changes: +CHLORDIAZEPOXID25 MG PO; +KEPPRA500 MG PO
--- OUTSIDE RECORDS SUMMARY | 2023-02-24 14:54 | XMS ---
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 [place] VISIT COUNT (12 MO.) [address] [place] [address] TOTAL 4 NOTE: Visits indicate total known visits. 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
[2023-02-24 15:00] LABS: BASOPHILS 0.4 % (0-2); EOSINOPHILS 0.6 % (0-6); HEMATOCRIT 38.1 % (35.0-50.0); HEMOGLOBIN 12.6 g/dL (12.0-18.0); LYMPHOCYTES 3.3 % (24-44); MCH 33.3 (27-36); MCHC 33.2 g/dl (30-36); MCV 100.4 fl (81-99); MONOCYTES 4.9 % (0-12); NEUTROPHILS 90.8 % (39-80); PLATELET COUNT 175 K/uL (140-440); RDW 13.6 (10.5-15.0)
[2023-02-24 15:21] LABS: ALBUMIN 3.2 g/dL (3.4-5.0); ALBUMIN/GLOBULIN RATIO 0.82 (1.1-2.4); ALCOHOL, MEDICAL <3 ng/dL (<3); ALKALINE PHOSPHATASE 81 U/L (46-116); ALT (SGPT) 35 U/L (14-59); ANION GAP 9.8 (7-21); AST (SGOT) 35 U/L (15-37); BILIRUBIN, TOTAL 0.6 ng/dL (0.2-1.0); BUN/CREATININE RATIO 17.05 (6.0-28.6); CALCIUM 8.7 mg/dL (8.5-10.1); CARBON DIOXIDE 32 mmol/L (21-32); CHLORIDE 104 mmol/L (98-107); CREATININE, SERUM 1.29 mg/dL (0.70-1.30); GLOMERULAR FILTRATION RATE,EST 58 mL/min (>60); POTASSIUM 2.8 mmol/L (3.5-5.1); PROTEIN, TOTAL 7.1 g/dL (6.4-8.2); UREA NITROGEN 22 mg/dL (7-18)
--- NOTE | 2023-02-24 17:45 | NUR ---
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 PT ARRIVES VERY AGITATED, CONFUSED, NOT FOLLOWING DIRECTIONS AND TRYING TO CLIMB OUT OF BED. ALL ADMISSION QUESITONS ANSWERED BY . VSS, PT WAS INC OF URINE, RENEA CARE DONE AND PT REPOSITIONED UP IN THE BED. BED ALARM ON AND PT IN VIEW OF NURSES STATION.
--- NOTE | 2023-02-24 18:00 | NUR ---
CIWA SCORE 15 FOR PT RESTLESSNESS, CONFUSION AND AGITATION, 1MG ATIVAN GIVEN. PT RESTING NOW, EYES CLOSED, RESP EVEN AND UNLABORED, BED ALARM ON.
--- NOTE | 2023-02-24 19:34 | NUR ---
RECEIVED REPORT FROM DAY SHIFT RN. PATIENT IS RESTING IN BED WITH EYES CLSOED, RR 18. CALL LIGHT IN REACH.
--- NOTE | 2023-02-24 21:18 | NUR ---
PATIENT RESTLESS IN BED AND TRYING TO PULL LINES. PRNN AGITATION MEDICATION GIVEN PER ORDER. PATIENT IS ONLY ORIENTED TO SELF. WILL NOT ANSWER OREINTATION QUESTIONS. PATIENT WILL NOT FOLLOW DIRECTIONS. THIS RN AND CCU ROLL SETTER ATTEMPTED TO REDIRECT PATIENT. PATIENTS LIGHTS TURNED DOWN AND WARM BLANKET PROVIDED. THIS RN LEFT ROOM TO DECREASE STIMULI. BED ALARM ON FOR SAFETY AND IN VIEW OF RN STATION.
--- NOTE | 2023-02-24 21:30 | NUR ---
PT CONTINUES TO PULL AT LINES AND LEADS. PT REORIENTED TO LEAVE LINES/LEADS IN PLACE. PT NOT FOLLOWING COMMANDS. YAUNKER USED TO ASSIST WITH CLEARING SECRETIONS PT COUGHS INTO MOUTH. BED LOCKED AND IN LOW POSITION WITH BED ALARM ON. PT WITHIN DIRECT VIEW OF NURSES STATION. VSS AND NAD NOTED VIA DIRECT OBS AND CONTINUOUS MONITOR.
--- NOTE | 2023-02-24 21:41 | NUR ---
PATIENT CONTINUES TO PULL LINES AND PICK AT GOWN. PATIENT UNABLE TO FOLLOW DIRESCTIONS. THIS RN AND BENCH WORKER HELPER ATTEMPTED TO REDIRECT PATIENT. PATIENT UN REDIRECTABLE A THIS TIME. PRN AGITATION MEDCATION GIVEN PER ORDER. PATIENT [ROVIDED WARM BLANKET. PATIENT APPEARS TO BE SETTLING DOWN. CALL LIGHT IN REACH.K BED ALARM ON FOR SAFETY. PATIENT IN DIRECT VIEW OF RN STATION.
--- NOTE | 2023-02-24 22:04 | NUR ---
DR LUIS NOTIFIED FOR PT STATUS. PT AGGRESSIVE, COMBATIVE WITH NO RESPONSE TO 2 MG ATIVAN GIVEN THIS HOUR PER EMAR. MD INFORMED THAT PT HAS NIT URINATED SINCE ADMISSION TO UNIT. TO ORDER PHENOBARBITOL AND SHEPPARD CATHETER PLACEMENT.
--- NOTE | 2023-02-24 22:10 | NUR ---
CCU TRAFFIC CONTROL SIGNALER PLACED CALL TO MD WITH CONCERN TO PATIENTS INCREASED AGIATION AND CONCERN OF NO URINE OUTPUT. SEE TRAFFIC CONTROL SIGNALER NOTE TIME APPROX 4.
--- NOTE | 2023-02-24 22:12 | NUR ---
PATIENT GIVEN PRN MEDICATION FOR AGITATION BY COMPUTER SYSTEMS MANAGER FOR SONSUSANUEES AGIATION AND AGGRESION TOWARDS STAFF. THIS RN AND X3 RNS REMAIN IN ROOM FOR PATIENT SAFETY.
--- NOTE | 2023-02-24 22:15 | NUR ---
DR LUIS AT BEDSIDE. TO PUT IN NEW ORDER. THIS RN, CCU FOOD AIDE, VP LAB AND FLOAT RN AT BEDSIDE. PATIENT IS HITTING, KICKING, SPITTING, AND ATTEMPTING TO PULL ON LINES. THIS RN AND THE ABOVE RNS ARE ATTEMPTING TO KEEP PATIENT FROM ASSUALTING STAFF, PULLING IN LINES/TUBES, AND KEEPING PATIENT SAFE. THIS RN AT BEDSIDE AND 3 OTHER RNS AT BESIDE WHILE PLACES ORDERS IN COMPUTER.
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
--- NOTE | 2023-02-24 22:51 | NUR ---
SHEPPARD CATH PLACED PER ORDER. 130ML CARLOS, CLEAR URINE WITH STRONG ODOR. SAMPLE SENT TO LAB BY JIM MCHUGH. PT CONTINUES TO BE COMBATIVE AT THIS TIME. SEVERAL RNs IN ROOM.
[2023-02-24 22:55] LABS: BILIRUBIN, URINE NEGATIVE (negative); BLOOD/HGB, URINE NEGATIVE (Negative); KETONE, URINE TRACE (Negative); LEUK ESTERASE, URINE NEGATIVE (negative); NITRITE, URINE NEGATIVE (negative)
[2023-02-24 23:00] LABS: EPITHELIAL CELLS, URINE SQUAMOUS 1+ /lpf (0-1+)
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
[2023-02-24 23:04] LABS: BACTERIA, URINE RARE /hpf (negative); CASTS, URINE NONE SEEN \\lpf; CRYSTALS, URINE NONE SEEN (0-1+); REFLEX CULTURE, URINE No (No)
[2023-02-24 23:11] LABS: AMPHETAMINES, UR NEGATIVE (NEGATIVE); BARBITURATES, UR NEGATIVE (NEGATIVE); BENZODIAZEPINES, UR POSITIVE (NEGATIVE); BUPRENORPHINE,UR NEGATIVE (NEGATIVE); COCAINE, UR NEGATIVE (NEGATIVE); MARIJUANA (THC), UR POSITIVE (NEGATIVE); MDMA, UR NEGATIVE (NEGATIVE); METHADONE, UR NEGATIVE (NEGATIVE); METHAMPHETAMINE, UR NEGATIVE (NEGATIVE); OPIATES, UR NEGATIVE (NEGATIVE); OXYCODONE, UR NEGATIVE (NEGATIVE); PHENCYCLIDINE, UR NEGATIVE (NEGATIVE); TRICYCLIC ANTIDEPRESSANT, UR NEGATIVE (NEGATIVE)
--- NOTE | 2023-02-24 23:15 | NUR ---
PLACED ORDER FOR PRECIDEX DRIP. PRECIDEX DRIP STARTED PER ORDER SEE EMAR. PATIENT CONTUES TO BE COMBATIVE WITH STAFF AND ATTEMPT TO HIT KICK AND SPIT ON STAFF. X4 RNS REMAIN AT BEDSIDE FOR PATIENT SAFETY.
--- NOTE | 2023-02-24 23:40 | NUR ---
PRECIDEX DRIP INFUSING PER ORDER. PATIENT REMAINS A 1 ON 1 FOR PATIENT SAFETY. SEE FLOW SHEET FOR TITRATIONS OF PRECIDEX DRIP. LEFT BEDSIDE AND UNIT.
[2023-02-25] VITALS (29 sets, daily range): BP systolic 90–158; BP diastolic 50–141
--- NOTE | 2023-02-25 | NUR ---
PRECEDEX GTT TITRATED PER MD VERBAL ORDER FOR PT AGGITATION. 23:35 - 0.4 MCG/KG/HR 23:40 - 0.6 MCG/KG/HR 00:00 - 0.8 MCG/KG/HR
--- NOTE | 2023-02-25 00:06 | NUR ---
PATIENT REMAINS A 1 ON 1 WITH STAFF FOR PATIENT SAFETY. PATIENT CONTINUES TO HAVE PRECIDEX DRIP INFUSING SEE FLOW SHEET FOR TITRATIONS.
--- NOTE | 2023-02-25 00:18 | NUR ---
DR LUIS CALLED TO CHECK PT STATUS. UPDATED. ALL QUESTIONS ANSWERED.
--- NOTE | 2023-02-25 00:25 | NUR ---
PT RESTING IN BED WITH EYES CLOSED. PRECEDEX GTT INFUSING AT 0.8MCG/KG/HR. PT VSS AND NAD NOTED VIA CONTINUOUS MONITOR AND DIRECT OBS. BED IN LOW, LOCKED POSITION WITH BED ALARM ON AND SEIZURE PADS IN PLACE FOR PT SAFETY.
--- NOTE | 2023-02-25 00:44 | NUR ---
PATIENT IS RESTING IN BED WITH EYES CLSOED, RR 31. PATIENT APPEARS COMFORTABLE. VITALS ARE STABLE. PATIENT HAS SEIZURE PRECAUTIONS IN PLACE. PATIENT REMAINS ON PRECIDEX DRIP PER ORDER-SEE TITRATION SHEET. PATIENTS CALL LIGHT IN REACH AND IN VIEW OF RN STATION. BED ALARM ON FOR SAFETY.
--- NOTE | 2023-02-25 01:39 | NUR ---
PATIENT REPOSITIONED IN BED. ORAL CARE AND SUCTION COMPLETED. PATIENTS DRIP TITRATED PER ORDER-SEE FLOW SHEET. SEIZURE PRECUATIONS IN PLACE. BED ALARM ON FOR SAFETY. PATIENT IN VIEW OF RN STATION.
--- NOTE | 2023-02-25 02:02 | NUR ---
PT SNORING AND MOUTH BREATHING. DESATS TO 88%. PT PLACED ON 2L NC TO MAINTAIN O2 SAT >92. PT CURRENTLY SAT 94%. PT PRECEDEX GTT TITRATE DOWN TO 0.4 MCG/KG/MIN. VSS AND NAD NOTED VIA CONTINUOUS MONITOR AND DIRECT OBSERVATION.
--- NOTE | 2023-02-25 03:21 | NUR ---
PATIENT REPOSITIONED IN BED. SHEPPARD EMPTIED. PATIENT AWAKENS BRIEFLY. PATIENT REMAINS ON 2L VIA NC. PATIENT IV INFUSING PER ORDER. DRIP TITRATED DOWN SEE FLOWSHEET. PATIENT APPEARS COMFORTABLE. SEIZURE PRECAUTIONS IN PLACE. BED ALARM ON FOR SAFET. PATIENT IN VIEW OF RN STATION.
--- NOTE | 2023-02-25 03:55 | NUR ---
PATIENT APPEARS TO BE RESTING COMFORTABLY IN BED. PATIENTS PRECEDEX DRIP STOPPED A THIS TIME.
--- NOTE | 2023-02-25 04:13 | NUR ---
ABX INFUSING PER ORDER. PATIENT IS RESTING IN BED WITH EYES CLOSED, RR 25. PRECEDEX DRIP REMAINS OFF AT THIS TIME. SEIZURE PRECAUTIONS IN PLACE. BED ALARM ON FOR SAFETY. IV INFUSING PER ORDER.
--- NOTE | 2023-02-25 05:17 | NUR ---
PATIENT REPOSITIONED IN BED. PATIENT OPENS EYES AND LOOKS AT STAFF. LAB IN ROOM TO DRAW BLOOD. PATIENT TOELRATED ACTIVITY WELL. PATIENT REMAINS ON 2L VIA NC. PATIENT ASSESMENT COMPLETED. SEIZURE PRECAUTIONS IN PLACE. PATIENTS BED ALARM ON FOR SAFETY. PATIENT IN VIEW OF RN STATION. IV INFUSING PER ORDER.
[2023-02-25 05:24] LABS: HEMATOCRIT 31.4 % (35.0-50.0); HEMOGLOBIN 10.6 g/dL (12.0-18.0); MCH 34.1 (27-36); MCHC 33.9 g/dl (30-36); MCV 100.4 fl (81-99); PLATELET COUNT 141 K/uL (140-440); RBC 3.12 M/ul (4.3-5.7); RDW 13.7 (10.5-15.0)
[2023-02-25 05:32] LABS: INR 1.13 (0.80-1.30); PROTIME 13.8 Sec (11.2-14.2)
[2023-02-25 05:37] LABS: ALBUMIN 2.4 g/dL (3.4-5.0); ALBUMIN/GLOBULIN RATIO 0.69 (1.1-2.4); ANION GAP 10.1 (7-21); BILIRUBIN, TOTAL 0.5 ng/dL (0.2-1.0); BUN/CREATININE RATIO 24.44 (6.0-28.6); CREATININE, SERUM 0.9 mg/dL (0.70-1.30); MAGNESIUM 1.6 mg/dL (1.8-2.4); PHOSPHORUS, INORGANIC 2.9 mg/dL (2.5-4.9); POTASSIUM 3.1 mmol/L (3.5-5.1); PROTEIN, TOTAL 5.9 g/dL (6.4-8.2)
[2023-02-25 05:43] LABS: BANDS, MANUAL DIFF 16; LYMPHOCYTES, MANUAL DIFF 10; NEUTROPHILS, MANUAL DIFF 74
--- NOTE | 2023-02-25 07:08 | NUR ---
PATIENT IS PULLING ON LINES AND TRYING TO GET OUT OFF BED. THIS RN ATTMEPTED TO REDRECT PATIENT. PATIENT SWATTED AT THIS RN. PATIENT PLACED BACK ON PRECEDEX DRIP PER ORDER. PATIENT IN DIRECT OBS OF RN STATION.
--- NOTE | 2023-02-25 07:30 | NUR ---
REPORT RECEIVED. PATIENT VERY RESTLESS. PRECEDEX GGT TO 0.4 MCG/KG/HR. STAFF IN ROOM. PATIENT HAS UPPER AIRWAY CONGESTION. O2 SAT ON 2 L NC, 97. MUMBLING. IVF,SHEPPARD CATH PATENT.
--- NOTE | 2023-02-25 07:40 | NUR ---
REMAINS VERY RESTLESS. ATIVAN AND PHENOBARB IV GIVEN. STAFF IN ROOM.
--- NOTE | 2023-02-25 08:20 | NUR ---
CONTINUES TO BE VERY RESTLESS. PRECEDEX GTT AT 1.0 MCG/KG/HR. PHENOBARB 65 MG IV GIVEN.
--- NOTE | 2023-02-25 08:36 | NUR ---
MORE CALM NOW.
--- NOTE | 2023-02-25 08:55 | NUR ---
PATIENT REMAINS CALM. DR. LUIS HERE TO SEE PATIENT ABD DISCUSS POC.
--- NOTE | 2023-02-25 09:03 | NUR ---
K RIDER AND MG RIDER INFUSING.
--- NOTE | 2023-02-25 09:46 | NUR ---
REMAINS CALM, SLEEPING. PRECEDEX NOW INFUSING AT 0.2 MG/KG/HR. U/O REMAINS LOW. DR. LUIS IS AWARE.
--- NOTE | 2023-02-25 10:30 | NUR ---
NO CHANGES. REMAINS ON PRECEDEX, [id number] [employer] AND Cheryl JOHNSON, VIC AT 125 ML/HR.
--- NOTE | 2023-02-25 11:00 | NUR ---
Spoke with nurses. Pt is not awake. Called and completed assessment. Per pt will need placement as she is unable to "handle" him at home any more. 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 I called and spoke with Skye Paul at the [facility]. Pt is 100% service connected and will qualify for senior living placement to a SNF. [facility] completed and I faxed the [facility] and the chart to Skye at the [facility].
--- NOTE | 2023-02-25 11:56 | NUR ---
UR NOTE MCG PNEUMONIA DUE TO ASPIRATION (ISC) INPATIENT 02/24/23 MET CLINICAL INDICATIONS FOR ADMISSION TO INPATIENT CARE GL DAY 1
--- NOTE | 2023-02-25 12:00 | NUR ---
IV SITE STARTED TO RIGHT HAND. PATIENT TOLERATED WELL. REMAINS CALM. PRECEDEX GTT AT 0.1 MCG/KG/HR. BANANA BAG HUNG. MAINTANCE IV SOLUTION TO TKO WHEN BANANA BAG INFUSING AT 252 ML/HR. CURRENTLY RECEIVING LR-15 ML/HR, PRECEDEX GTT-0.1 MCG/KG/HR, K RIDER AT 131 ML/HR, VANCO AT 270 ML/HR IV.
--- NOTE | 2023-02-25 13:00 | NUR ---
HAS BEEN LAYING ON RIGHT SIDE, REPOSITIONED TO LEFT SIDE. UPON TURNINFG PATIENT, HAS INCREASED AUDILBE COURSE BREATH SOUNDS. MORE RESTLESS. RT NOTIFIED. PRECUSSION VIA VEST TO BE DONE BY RT.
--- NOTE | 2023-02-25 13:07 | NUR ---
MORE RESTLESS. PRECEDEX GTT INCREASED. (SEE fLOW SHEET FOR TITRATION.
--- NOTE | 2023-02-25 13:15 | NUR ---
MYCUMIST TREATMENT GIVEN BY RT. PATIENT NOW VERY AGITATED AND RESTLESS. DIFFICULT TO CONTROL. SEVERAL STAFF IN ROOM.
--- NOTE | 2023-02-25 13:17 | NUR ---
NASAL AIRWAY PLACED TO LEFT NARE.
--- NOTE | 2023-02-25 13:30 | NUR ---
ATIVAN 1 MG IV GIVEN, REMAINS AGITATED.
--- NOTE | 2023-02-25 13:40 | NUR ---
NASAL AIRWAY DC'D, MORE AGITATED WITH AIRWAY IN. PRECEDEX GTT NOW AT 0.8 MCG/KG/HR.
--- NOTE | 2023-02-25 14:56 | NUR ---
SLEEPING ON LEFT SIDE.
--- NOTE | 2023-02-25 16:00 | NUR ---
ASSESSMENT DONE. PRECEDEX GTT AT 0.4 MCG/KG/HR. CALM. SHEPPARD CATH PATENT.
--- NOTE | 2023-02-25 19:24 | NUR ---
NO FUTHER CHANGES. REPORT TO NEXT SHIFT.
--- NOTE | 2023-02-25 19:49 | NUR ---
RECEIVED REPORT FROM DAY SHIFT RN. PATIENT IS RESTING IN BED. PRN SUCTION AND ORAL CARE COMPLETED. PATIENT AWOKEN BRIEFLY. SEIZURE PRECAUTIONS IN PLACE. BED ALARM ON FOR SAFETY.
--- NOTE | 2023-02-25 20:10 | NUR ---
PATIENT PULLING ON LINES AND IS INCREASED AGITATION. PATIENTS PRECEDEX DRIP INCREASED SEE FLOW SHEET. RT IN ROOM.
--- NOTE | 2023-02-25 20:55 | NUR ---
PATIENT PULLED OUT IV TUBING. IV IN LEFT WRIST DC'D. PATIENTS PRECEDEX DRIP TITRATED UP SEE FLOW SHEET.
--- NOTE | 2023-02-25 21:31 | NUR ---
PATIENT CONTINUES TO PULL ON LINES AND TUBES. PATIENT TITRATES UP PRECEDEX DRIP-SEE FLOW SHEET. PM MEDS INFUSING PER ORDER.
--- NOTE | 2023-02-25 21:42 | NUR ---
RADHA HAS NOTICABLE TREMORS AND CONTINUES TO BED AGITATED AND PULL ON LINES AND PICK AT MONITOR. PATIENT HAS CIWA OF 10, PRN MEDICATION GIVEN PER ORDER.
--- NOTE | 2023-02-25 22:10 | NUR ---
PATIENT IS RESTING IN BED WITH EYES CLOSED, RR 28. PATIENT APPEARS COMFORTABLE AND IN NO DISTRESS. PATIENTS CIWA IS NOW A 6. PATIENTS PRECEDEX DRIP TITRATED PER ORDER-SEE FLOW SHEET.
[2023-02-26] VITALS (30 sets, daily range): BP systolic 122–183; BP diastolic 71–121
--- NOTE | 2023-02-26 00:09 | NUR ---
PATIENT REPOSITIONED IN BED. ATTEND IS DRY. SHEPPARD DRAINING YELLOW URINE. VITALS RECORED. INTAKE AND OUTPUT RECORDED. SCHEDULE MEDICATION GIVEN PER ORDER. IV INFUSING PER ORDER. PLACED NEW IV. PATIENTS CIWA IS NOTED TO BE 4. PATIENT APPEARS TO BE IN NO DISTRESS AND APPEARS COMFORTABLE. PATIENT DOES WAKEN BRIEFLY WHEN NAME IS CALLED. PATIENTS DRIP TITRATED DOWN-SEE FLOW SHEET. PATIENT HJAS SEIZURE PADS IN PLACE. BED ALARM ON FOR SAFET. PATIENT IS IN DIRECT VIEW OF RN STATION.
--- NOTE | 2023-02-26 00:48 | NUR ---
PATIENT PLACED ON 2L VIA OXYMASK. RT AT BEDSIDE. RT PLACED PATIENT ON END TIDAL VOLUME MONITOR. PATIENTS PRECEDEX DRIP STOPPED. PATIETNT RESPONDS TO NOXIOUS STIMULI. RT REMAINS AT BEDSIDE.
--- NOTE | 2023-02-26 01:01 | NUR ---
RT PLACED VBG ORDER. LAB IN ROOM. RT REMAINS IN ROOM.
[2023-02-26 01:02] LABS: PH, VENOUS 7.448 (7.31-7.41)
--- NOTE | 2023-02-26 01:08 | NUR ---
VBG RESULTED. RT DENIES ANY FURTEHR CONCERN. PATIENTS PRECEDEX DRIP REMAINS STOPPED AT THIS TIME. PATIENT APPEARS COMFORTABLE AND IN NO DISTRESS. PATIENT REMAINS ON 3L VIA OXYMASK. PATIENT REPOSNDS TO NOXIOUS STIMULI. SEIZURE PRECUATIONS REMAIN IN PLACE. PATIENTS BED ALARM IS ON FOR SAFETY. PATIENT IS IN DIRECT OBS OF RN STATION.
--- NOTE | 2023-02-26 02:02 | NUR ---
PATIENT IS RESTING IN BED WITH EYES CLOSED, RR 24. PATIENT CONTINUES TO BED ON 2L VIA OXYMASK. PATIENT APPEARS TO BE RESTING COMFORTABLY. SEIZURE PRECAUTIONS IN PLACE. BED ALARM ON FOR SAFETY.
--- NOTE | 2023-02-26 02:31 | NUR ---
PATIENT IS RESTLESS IN BED AND GRABBING AT LINES. PATIENTS PRECEDEX DRIP RESTARTED-SEE FLOW SHEET. PATIENT HAS NOTED INCREASED SECRETIONS. RT AT BEDSIDE. DEEP SUCTION AND ORAL SUCTION PERFOREMD BY RT. RT ABLE TO CLEAR SECRETIONS. PATIENT IS RESTING IN BED. SEIZURE PRECAUTIONS IN PLACE. BED ALRM ON FOR SAFETY.
--- NOTE | 2023-02-26 03:10 | NUR ---
PATIENT IS SPITTING AND PULLING ON LINES. PATIENTS PRECEDEX DRIP TITRATED PER ORDER. SEE FLOW SHEET. THIS RN REMAINS AT BEDSIDE.
--- NOTE | 2023-02-26 03:22 | NUR ---
PATIENT CONTINUES TO BE AGITATED. PATIENT HAS A CIWA OF 9, PRN MEDICATION GIVEN PER PROTOCOL. THIS RN REMAINS AT BEDSIDE.
--- NOTE | 2023-02-26 03:43 | NUR ---
PATIENT CONTINUES TO BE AGITATED, RESTLESS, PULLING ON LINES AND TUBES. PRECEDEX DRIP TITRATED PER PROTOCOL-SEE FLOWSHEET. THIS RN REMAINS AT BEDSIDE.
--- NOTE | 2023-02-26 04:20 | NUR ---
PATIENT APPEARS TO BE RESTING COMFORTABLY. PATIENTS PRECEDEX INFUSING PER ORDER. PATIENT REPOSITIONED IN BED. WARM BLANKET PROVIDED. SEIZURE PADS IN PLACE. BED ALARM ON FOR SAFETY. PATIENT IS ON RA AT THIS TIME.
--- NOTE | 2023-02-26 04:49 | NUR ---
PATIENT REPOSITIONED IN BED. PATIENTS PRECEDEX DRIPP TITRATED PER ORDER-SEE FLOWSHEET. PATIENT IS RESTING IN BED AND APPEARS COMFORTABLE. PATIENT REMAINS ON RA. BED ALAMR ON FOR SAFETY. IV INFUSING PER ORDER.
[2023-02-26 05:34] LABS: BASOPHILS 0.1 % (0-2); EOSINOPHILS 0.2 % (0-6); HEMATOCRIT 32.7 % (35.0-50.0); HEMOGLOBIN 11.2 g/dL (12.0-18.0); LYMPHOCYTES 7.4 % (24-44); MCH 34.4 (27-36); MCHC 34.3 g/dl (30-36); MCV 100.2 fl (81-99); MONOCYTES 5.5 % (0-12); NEUTROPHILS 86.8 % (39-80); PLATELET COUNT 148 K/uL (140-440); RBC 3.26 M/ul (4.3-5.7); RDW 13.5 (10.5-15.0)
[2023-02-26 05:54] LABS: ALBUMIN 2.5 g/dL (3.4-5.0); ALBUMIN/GLOBULIN RATIO 0.66 (1.1-2.4); ANION GAP 12.2 (7-21); BILIRUBIN, TOTAL 0.6 ng/dL (0.2-1.0); BUN/CREATININE RATIO 17.58 (6.0-28.6); CALCIUM 8.4 mg/dL (8.5-10.1); CREATININE, SERUM 0.91 mg/dL (0.70-1.30); MAGNESIUM 1.7 mg/dL (1.8-2.4); POTASSIUM 3.2 mmol/L (3.5-5.1); PROTEIN, TOTAL 6.3 g/dL (6.4-8.2)
--- NOTE | 2023-02-26 06:11 | NUR ---
PATIENT REPOSITIONED IN BED. PATIENT REMAINS ON PRECEDEX DRIP AND NO CHANGES MADE AT THIS TIME. PATIENTS VITALS TAKEN AND RECORDED. PATIENTS SHEPPARD EMPTIED AND SHEPPARD CARE COMPLETED. PATIENT IS ON RA. PATIENT APPEARS TO BE RESTING COMFORTABLY. PATIENTS FACE WASHED. PATIENT DID OPEN EYES BRIEFLY. PATIENT CONTINUES TO HAVE SEIZURE PRECAUTIONS IN PLACE. BED ALARM ON FOR SAFETY.
--- NOTE | 2023-02-26 06:45 | NUR ---
PATIENT IS BEGINNING TO PICK AT LINES AND TUBES. PATIENTS PRECEDEX DRIP TITRATED UP PER PROTOCOL- SEE FLOW SHEET.
--- NOTE | 2023-02-26 07:52 | NUR ---
PRECEDEX TITRATED TO 0.6MCG/KG/HR FOR CHEST CPT. RASS -2. SEIZURE PRECAUTIONS IN PLACE.
--- NOTE | 2023-02-26 08:30 | NUR ---
PATIENT RESTING IN BED, EYES CLOSED. SEIZURE PRECAUTIONS IN PLACE, BED ALARM ON FOR SAFETY. VITALS AND I&OS CHARTED.
--- NOTE | 2023-02-26 08:35 | NUR ---
PRECEDEX DRIP TITRATED BACK DOWN TO 0.4 MG/KG/HR AFTER CHEST CPT. RASS -2. SEIZURES PRECAUTIONS IN PLACE
--- NOTE | 2023-02-26 08:49 | NUR ---
ASSESSMENT COMPLETE. PT ON PRECEDEX GTT, SEE FLOWSHEET. RASS -2. RESPONDS TO TOUCH BY PULLING ARMS AWAY AND MOVING LEGS. COARSE LUNG SOUNDS HEARD IN BILATERAL UPPER AND LOWER LUNGS. PT REMAINS ON RA O2 SAT 96%. SEIZURE PRECAUTIONS REMAIN IN PLACE.
--- NOTE | 2023-02-26 09:20 | NUR ---
Called and spoke with Dacia at the [facility]. Asked to speak with Skye, but she is in a meeting. I checking for the process for placement for this pt. I asked Dacia if she knew the names of the facilities the [facility] contract with for behavior health. She states, [facility] in [place] and [facility] in [place]. She will leave a message for Skye to return my call.
--- NOTE | 2023-02-26 10:15 | NUR ---
ORAL CARE PROVIDED AND PT REPOSITIONED. PT TOLERATED POORLY, BECOMING RESTLESS, PULLING ON BLANKETS AND SEIZURE PADS. PT NOT FOLLOWING COMMANDS. PRECEDEX GTT INCREASED TO 0.6 MCG/KG/HR.
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
--- NOTE | 2023-02-26 11:08 | NUR ---
PATIENT RESTLESS, PULLING AT LINES, TYRING TO PULL AT SEIZURE PADS ON BED. CIWA SCORE 20. PRN ATIVAN GIVEN. PRECEDEX INCREASED TO 1 MCG/KG/HR. LINES AND TUBES LABELED. WILL CONTINUE TO MONITOR.
--- NOTE | 2023-02-26 11:49 | NUR ---
CCU ROUNDS. PT HEAVILY MEDICATED. NO VISIT POSSIBLE. PROVIDED SILENT PRAYER.
--- NOTE | 2023-02-26 11:57 | NUR ---
Clinical note faxed to Marlon Fountain LEAK PATCHER at [facility]. I spoke with platen grinder and pt has established care.
--- NOTE | 2023-02-26 12:31 | NUR ---
PRECEDEX GTT TITRATED DOWN TO 0.8MCG/KG/HR. RASS -4, NO RESPONSE TO PHYSICAL OR VERBAL STIMULATION.
--- NOTE | 2023-02-26 14:06 | NUR ---
UR NOTE MCG PNEUMONIA DUE TO ASPIRATION (ISC) INPATIENT 02/25/23 VARIANCE GL DAY 2 02/26/23 VARIANCE GL DAY 2
--- NOTE | 2023-02-26 15:41 | NUR ---
PT REPOSITIONED, ORAL CARE PROVIDED, PT TOLERATED POORLY. RESTLESS AND AGITATED WITH STIMULATION. GRABBING LINES AND STAFF, SWINGING WITH ORAL CARE. PRECEDEX DRIP TITRATED TO 1MCG/KG/HR. SEIZURE PADS IN PLACE. BED ALARM ON.
--- NOTE | 2023-02-26 18:26 | NUR ---
PT REPOSITIONED IN BED, TOLERATED WELL. PT COUGH WITH THICK YELLOW SPUTUM, ORAL SUCTION PROVIDED. MOUTH MOISTURIZER PROVIDED.
--- NOTE | 2023-02-26 19:45 | NUR ---
PT WAKING UP, FLAILING ARMS IN AIR AND GRABBING AT LINES. 1MG IV ATIVAN GIVEN.
--- NOTE | 2023-02-26 20:04 | NUR ---
RT IN WITH PT.
--- NOTE | 2023-02-26 20:30 | NUR ---
PT HAS BEEN MORE CALM AND RESTFUL SINCE ATIVAN GIVEN.
--- NOTE | 2023-02-26 21:00 | NUR ---
DR ROMANO ROUNDING ON UNIT, UPDATED ON PTS STATUS, ORDER GIVEN FOR PRN HYDRALAZINE FOR ELEVATED BP'S.PT OVERALL RESTFUL, OCCSIONALLY MOVING TURNING HIMSELF IN BED AND COUGHING WITH WHITE SPUTUM PRODUCED. ORAL CARE DONE, HS CARE DONE.
--- NOTE | 2023-02-26 22:30 | NUR ---
PT SOMEWHAT RESTLESS BUT NOT PULLING AT LINES, SLEEPING LIGHTLY, WILL AROUSE INCOHERENTLY TO STIMULATION.
[2023-02-27] VITALS (32 sets, daily range): BP systolic 86–180; BP diastolic 67–122
--- NOTE | 2023-02-27 00:26 | NUR ---
IN TO DO ASSESSMENT, PT IS A LITTLE MORE AWAKE NOW, MUMBLING INCOHERENTLY WITH EYES CLOSED, MOVING SELF FROM SIDE TO SIDE. IV SITE IN RIGHT HAND IS LEAKING FROM SITE, REMOVED AND NEW IV PLACED IN LEFT HAND. PRECEDEX DRIP REMAINS AT 1MCG/KG/HR. PT IS TACHYPNEIC WITH RR 30, WET SOUNDING COUGH, SPO2 93-94% ON ROOM AIR. RIGHT SIDE LUNGS ARE VERY DIMINISHED. PRN HYDRALAZINE GIVEN. SHEPPARD DRAINING LIGHT YELLOW CLEAR URINE. IVF INFUSING.
--- NOTE | 2023-02-27 01:00 | NUR ---
PT REPOSITIONED UP IN BED TO AID IN INCREASED WORK OF BREATHING, PT THEN BECAME MUCH MORE AGITATED, PULLING AT IV LINES AND YELLING OUT ANGRILY. PT REASSURED HE WAS IN THE HOSPITAL, PRECEDEX DRIP TURNED UP TO 1.2MCG/KG/HR AND 1MG IV ATIVAN GIVEN.
--- NOTE | 2023-02-27 03:15 | NUR ---
PTS RESP RATE HAVE TRENDED UP, NOW 40 WITH INCREASED WORK OF BREATHING/ACC MUSCLE USE. SPO2 HAVE DROPPED, 92-95% ON ROOM AIR. CALL TO DR ROMANO, ORDER GIVEN FOR CHEST XRAY AND ABG NOW, RT IN TO DRAW ABG AND CHEST XRAY DONE.
--- NOTE | 2023-02-27 03:20 | NUR ---
PTS RESP RATE HAVE TRENDED UP, NOW 40 WITH INCREASED WORK OF BREATHING/ACC MUSCLE USE. SPO2 HAVE DROPPED, 92-95% ON ROOM AIR. CALL TO DR ROMANO, ORDER GIVEN FOR CHEST XRAY AND ABG NOW.
--- NOTE | 2023-02-27 03:30 | NUR ---
XR IN FOR CXR AND LAB IN TO DRAW
[2023-02-27 03:42] LABS: BASOPHILS 0.3 % (0-2); EOSINOPHILS 0.3 % (0-6); HEMATOCRIT 37.1 % (35.0-50.0); HEMOGLOBIN 12.8 g/dL (12.0-18.0); LYMPHOCYTES 11.9 % (24-44); MCH 34.3 (27-36); MCHC 34.4 g/dl (30-36); MCV 99.7 fl (81-99); MONOCYTES 5.4 % (0-12); NEUTROPHILS 82.1 % (39-80); PLATELET COUNT 176 K/uL (140-440); RBC 3.72 M/ul (4.3-5.7); RDW 13.7 (10.5-15.0)
[2023-02-27 03:58] LABS: ALBUMIN 2.7 g/dL (3.4-5.0); ALBUMIN/GLOBULIN RATIO 0.61 (1.1-2.4); ANION GAP 15.5 (7-21); BILIRUBIN, TOTAL 0.7 ng/dL (0.2-1.0); BUN/CREATININE RATIO 8.33 (6.0-28.6); CALCIUM 8.7 mg/dL (8.5-10.1); CREATININE, SERUM 0.96 mg/dL (0.70-1.30); MAGNESIUM 1.7 mg/dL (1.8-2.4); PHOSPHORUS, INORGANIC 2.6 mg/dL (2.5-4.9); POTASSIUM 3.5 mmol/L (3.5-5.1); PROTEIN, TOTAL 7.1 g/dL (6.4-8.2)
[2023-02-27 04:04] LABS: BASE EXCESS, BLOOD GAS 0.5 mmol/L (-2-2); HCO3, BLOOD GAS 23.9 mmol/L (22-26); O2 SATURATION, BLOOD GAS 95.4 % (95.0-100.0); PCO2, BLOOD GAS 33.4 mmHg (35-45); PH, BLOOD GAS 7.46 (7.35-7.45); PO2, BLOOD GAS 65 mmHg (80-100); TOTAL CO2, BLOOD GAS 24.9
--- NOTE | 2023-02-27 05:20 | NUR ---
RT IN TO ASSESS PT AND DO NEB TX. OXYGEN PLACED 2L/NC BY RT AFTER SEEING RECENT ABG RESULTS.
--- NOTE | 2023-02-27 05:50 | NUR ---
PTS BP HIGH-180/120, PRN HYDRALAZINE GIVEN. BP AFTER MED DOWN TO 167/91 (113).
--- NOTE | 2023-02-27 06:43 | NUR ---
DR ROMANO IN UNIT TO ROUND ON PT, ORDER GIVEN FOR BIPAP AND TO DECREASE IVF.
[2023-02-27 08:56] LABS: VANCOMYCIN, TROUGH 20.1 ug/mL (5.0-20.0)
--- NOTE | 2023-02-27 09:15 | NUR ---
THIS RN IN WITH BAN STUDENT NURSE TO GIVE AM MEDICATIONS. PATIENT ALERT TO TOUCH AND STARTS GRABBING AT THINGS AND STAFF WHEN AWAKE. PATIENT NOT COOPERATIVE WITH TREATMENTS. PATIENT WAS STARTED ON VAPOTHERM THIS AM. PATIENT NOW TOLERATING VAPOTHERM BETTER AT THIS TIME. PATIENT INTIALLY MOVING AND PULLING AT CORDS AND NOT ALLOWING STAFF TO HELP PATIENT. PATIENT DOES NOT RESPOND TO HIS NAME AND SPEECH IS GARBLED AND INCOMPREHENSIBLE. SPOKE WITH MD ABOUT ISSUES REGAURDING IV PLACEMENT. NEW ORDER FOR PICC LINE CONSULT. PATIENT HAS A SITTER IN WITH HIM TO REDIRECT NEEDED.
[2023-02-27 10:10] LABS: TSH, 3RD GENERATION 1.405 uIU/mL (0.358-3.740)
--- NOTE | 2023-02-27 10:17 | NUR ---
PT APPEARED TO BE SLEEPING. DID NOT DISTURB. PROVIDED SILENT PRAYER.
--- NOTE | 2023-02-27 11:15 | NUR ---
THIS RN IN TO INCREASE PRECEDEX GTT PER ORDERS. 2 ATIVAN DOSES GIVEN PER ORDERS AND UPDATED MD ROMANO OF PATIENTS COMBATIVENESS WITH PICC LINE PLACEMENT. PATIENT IS NOT ABLE TO COOPERATE WITH STAFF FOR LINE PLACEMENT AT THIS TIME. PER MD CAN GIVE ADDITIONAL DOSE OF ATIVAN IF NEEDED PER EMAR AND RESTRAINTS CAN BE PLACED IF NEEDED. PATIENT CURRENTLY RESTING IN BED AT THIS TIME WITH PATIENT SITTER FOR PATIENTS SAFETY.
--- NOTE | 2023-02-27 12:00 | NUR ---
THIS RN CAME BACK FROM BREAK AT 1130 AND PATIENT NOW SOMULENT. UPDATED MD ROMANO. PATIENT MAINTAINING HIS AIRWAY AT THIS TIME. ADARSH RN IN TO ASESS AND PATIENT WOKE UP WHILE STAFF WERE TRYING TO PREP PATIENT FOR PICC LINE AND WOULD NOT FOLLOW DIRECTION. SPOKE WITH MD ROMANO AND PICC RN DOES NOT WANT TO PLACE PICC D/T PATIENTS COMBATIVENESS AT TIMES. PICC LINE PLACEMENT TAKES APPROX [address] MD ROMANO [address] CONSULT FOR GENERAL SURGEON FOR LINE PLACEMENT. WILL DECREASE PATIENTS PRECEDEX GTT AND AWAIT CONSULT BY MELY.
--- NOTE | 2023-02-27 12:51 | NUR ---
RESPIRSTORY THERAPY IN TO WORK WITH PATIENT. PATIENT SITTER YAEL IN WITH PATIENT.
--- NOTE | 2023-02-27 12:55 | NUR ---
1034- WAS ASKED TO PLACE A PICC LINE THE PT IS ON MULTIPLE MEDICATIONS, LOSING IV ACCESS OFTEN AND IS A DIFFICULT IV START. PT IS UNABLE TO GIVE CONSENT DUE TO MENTATION. PT'S CONTACTED. RISKS AND BENEFITS DISCUSSED WTIH . PT'S CONSENTS FOR THE PICC LINE TO BE PLACED. 1046- PT IS CALM IN THE BED. PT'S RIGHT ARM EXAMINED. PT'S BRACHIAL VEIN WAS FOUND AND MEASURED. ACCORDING TO SITE [facility] 8 THE 4FR PICC WOULD TAKE UP APPROXIMATELY 38%. PT IS TRYING TO PULL HIS RIGHT ARM AWAY. LET GO OF PT'S RIGHT ARM AND LEFT ALONE TO RELAX. PT ON PRECEDEX DRIP. CCU RN AWARE OF PT PULLING ARM AWAY. 1114- MULTIPLE ATTEMPTS WERE MADE TO TRY TO STRAIGHTEN THE PT'S ARM. PT CONTINUES TO PULL HIS ARM AWAY AND IS THROWING HIS LEFT ARM UP INTO THE AIR. PT HAS BEEN RECEIVING MEDICATIONS PER CCU RN TO TRY TO CALM THE PT. ALSO TRYING TO REORIENT THE PT WITH NO AVAIL. PT ALLOWED TO RELAX IN THE BED. DR. ROMANO NOTIFIED AND IS COMING TO SEE THE PT. 1147- WAS NOTIFIED THE PT IS NOT PULLING HIS ARMS AWAY AND IS MORE RELAXED. WENT BACK TO CCU TO ATTEMPT TO PLACE THE PICC LINE. WHEN TRYING TO STRAIGHTEN THE PT'S ARM TO ACCESS THE VEIN THE PT PULLS HIS ARM AWAY. UNABLE TO KEEP THE PT IN A SAFE POSITION TO BE ABLE TO PLACE THE PICC LINE. CCU RN AND DR. ROMANO NOTIFIED.
--- NOTE | 2023-02-27 13:41 | NUR ---
PATIENT RESTING AT THIS TIME. PATIENT HAS SITTER YAEL IN AT THE BEDSIDE TO ASSIT PATIENT. PATIENT RESTING AT THIS TIME.
--- NOTE | 2023-02-27 14:24 | EKG ---
[facility] [address] [facility] [place], [place] [address] Signed Atrial fibrillation with rapid ventricular response Nonspecific ST abnormality Abnormal ECG When compared with ECG of 27-FEB-2023 09:14, (Unconfirmed) Atrial fibrillation has replaced Sinus rhythm Confirmed by MIRANDA ROMANO MD ([id number]) on 02/27/2023 2:24:05 PM Electronically Signed By: MIRANDA ROMANO 02/27/23 142 PATIENT NAME: CYNDI EDWARDS Electrocardiogram DATE OF : 46 PHYSICIAN: MIRANDA ROMANO REPORT #: [id number] REPORT IS CONFIDENTIAL AND NOT TO BE RELEASED WITHOUT AUTHORIZATION
--- NOTE | 2023-02-27 14:55 | NUR ---
MEDICAL RECORDS REQUESTED FROM [facility] AT THIS TIME.
--- NOTE | 2023-02-27 15:09 | NUR ---
No plan for dc today.
--- NOTE | 2023-02-27 15:30 | NUR ---
STAFF IN TO GIVE BEDBATH PATIENT AWAKE TO NAME BUT IS NOT COOPERATIVE.
[2023-02-27 15:35] LABS: BASE EXCESS, BLOOD GAS 0.2 mmol/L (-2-2); O2 SATURATION, BLOOD GAS 98.8 % (95.0-100.0); PCO2, BLOOD GAS 29.5 mmHg (35-45); PO2, BLOOD GAS 88 mmHg (80-100); TOTAL CO2, BLOOD GAS 23.9
[2023-02-27 15:36] LABS: OXYGEN RECEIVED, BLOOD GAS 38%
--- NOTE | 2023-02-27 15:41 | NUR ---
BEDBATH PROVIDED, SCRUB PANTS AND LINEN CHANGED. PATIENT REPOSITIONED IN BED AND LYING ON RIGHT SIDE. URINAL EMPTIED AND CHARTED. SITTER AT BEDSIDE AT THIS TIME.
[2023-02-27] MEDS ORDERED: DULOXETINE HCL60 MG PO (16:10)
--- NOTE | 2023-02-27 16:11 | NUR ---
MED REC COMPLETE
--- NOTE | 2023-02-27 17:00 | NUR ---
AND MULTIPLE STAFF IN THE PATIENTS ROOM. PATIENT AGITATED AND CURSING AT STAFF. PATIENT TRYING TO PULL OUT HIS IVS. PATIENT PRECEDEX GTT INCREASED PER ORDERS. STAFF TRYING TO REDIRECT PATIENT. PATIENT ATTEMPOTED TO HIT STAFF. PATIENTS IVS WRAPPED TO DECREASED CHANCE OF IVS BEING PULLED. NEW ORDERS PLACED PER MD AT THIS TIME FOR LABS IN THE AM. PATIENT SITTER AT HE [facility]SIDE [facility]. PATIENT DID GET AHOLD OF IV AND RIPPED THE TUBING APART. TUBING REPLACED. PATIENT ALSO REMOVED VAPOTHERM NASAL CANNULA AND STAFF WERE ABLE TO REPLACE ABOUT 15 MINUTES LATER.
--- NOTE | 2023-02-27 18:01 | NUR ---
PATIENT RESTING IN BED WITH THE SITTER AT THE BEDSIDE. PATIENT SLEEPING. PATIENTS IVS INFUSING WITH NO ISSUES. PATIENT REMAINS ON VAPOTHERM.
--- NOTE | 2023-02-27 18:58 | NUR ---
SETTING UP FOR SEDATION CON , AMBU BAG, SUCTION, ORAL AND NASAL AIRWAY AND IGEL AT BEDSIDE ,
--- NOTE | 2023-02-27 19:30 | NUR ---
PATIENT RESTLESS IN BED. ATTEMPTS MADE TO CALM PATIENT ARE UNSUCESSFUL. PATIENT RECEIVEING PRECEDEX DRIP TO MAINTAIN RASS OF 0 TO -1. PATIENT VS STABLE.
--- NOTE | 2023-02-27 20:30 | NUR ---
PATIENT PLACED IN SOFT RESTRAINTS TO MAINTAIN SAFETY FOR PATIENT AND STAFF. AWARE. PATIENT'S IV SITE IN LEFT AC REDRESSED, FLUSHED EASILY. PRECEDEX INFUSING. IN TO SEE PATIENT. PLAN FOR CENTRAL LINE PLACEMENT.
--- NOTE | 2023-02-27 22:00 | NUR ---
CENTRAL LINE PLACEMENT DONE BY . SEDATION PROVIDED BY CARLOS BEE. THIS RN AND RT ALSO IN ROOM. SEE PROCEDURE NOTES. PATIENT TOLERATED WELL. REMAINS IN SOFT WRIST RESTRAINTS PER ORDERS. VS STABLE. IVF AND PRECEDEX INFUSING PER ORDER. PATIENT TOLERATNG VAPOTHERM AT 30L 28% Fi02. RR 20-25 WITH MILD ABD BREATHING NOTED. PATIENT LUNG SOUNDS ARE DIMINISHED WITH SOME EXPIRTORY WHEEZES THROUGHOUT. SHEPPARD CATH IN PLACE, ADEQUATE URINE OUTPUT.
[2023-02-28] VITALS (20 sets, daily range): BP systolic 110–176; BP diastolic 69–115
--- NOTE | 2023-02-28 | NUR ---
PATIENT RECEIVED PRN ATIVAN AND COMPAZINE. PATIENT APPEARS UNCOMFORTABLE AND RESTLESS, UNABLE TO VERBALIZE DISCOMFORT. STATES "FUCK YOU" WHEN ORAL CARE DONE. PATIENT REPOSITIONED TO LEFT SIDE. SOFT RESTRAINTS REMAIN IN PLACE. PRECEDEX AT MAX INFUSION RATE, AWARE.
--- NOTE | 2023-02-28 02:00 | NUR ---
PATIENT RASS -1, CONTINUE TO TIRATE PRECEDEX TO MAINTAIN RASS 0 TO -1. PATIENT REMIANS IN SOFT RESTRAINTS. POSITIONED ON HIS RIGHT SIDE. BREATHING IS EVEN AND UNLABORED. BP WNL. PATIENT REMAINS IN A.FIB AND HR RANGE 55-65 WITH OCCATIONAL PAUSES < 3.0 SECONDS. LUNG SOUNDS ARE DIMINSIHED THORUGHOUT WITH SMALL EXPIRTORY WHEEZE NOTED. PATIENT REMAINS ON VAPOTHERM 30L 28% Fi02.
--- NOTE | 2023-02-28 04:35 | NUR ---
0400 PATIENT MOVED FROM RIGHT SIDE TO HIS LEFT SIDE. PATIENT OPENS HIS EYES AND IS NOT COMBATIVE DURING THIS CARE PROVIDED. THIS IS AN IMPROVEMENT OVER PREVIOUS INTERACTIONS THIS SHIFT AND PREVIOUS SHIFTS. PATIENT ALLOWS STAFF TO SUCTION AND PROVIDE BREIF ORAL CARE. PATIENT REMAINS IN SOFT RESTRAINTS HE DOES ATTEMPT TO PULL AT LINES WHEN ABLE. ATTEMPTS MADE TO POSITION PATIENT FOR COMFORT. PRN ATIVAN PROVIDED AFTER SEVERAL MINS OF PATIENT NOT BEING ABLE TO RELAX. RASS SCORE +2. PRECEDEX TITRATED ACCORDINGLY. VS STABLE. HR UP TO 90-100'S. ADEQUATE BP. 0430 PATIENT MOVED BACK TO HIS RIGHT SIDE. PATIENT APPEARS MORE COMFORTABLE ON THIS SIDE. POSITIONED FOR COMFORT WITH PILLOWS TO PROTECT SKIN AND PRESSURE POINTS. PATIENT IS MORE AGITATED AT THIS TIME BUT REMAINS UNABLE TO COMMUNICATE NEEDS. VS STABLE.
--- NOTE | 2023-02-28 05:00 | NUR ---
LABS DRAWN PER PROTOCOL BY MARIE MCHUGH AND COLLECTED BY LAB STAFF. PATIENT IS RASS 0; MUMBLING TO HIMSELF BUT UNABLE TO ANSWER ORIENTATION QUESTIONS.
[2023-02-28 05:30] LABS: BASOPHILS 0.2 % (0-2); EOSINOPHILS 1.4 % (0-6); HEMATOCRIT 33.9 % (35.0-50.0); HEMOGLOBIN 11.7 g/dL (12.0-18.0); LYMPHOCYTES 13.7 % (24-44); MCH 34.4 (27-36); MCHC 34.6 g/dl (30-36); MCV 99.5 fl (81-99); MONOCYTES 8.1 % (0-12); NEUTROPHILS 76.6 % (39-80); PLATELET COUNT 198 K/uL (140-440); RBC 3.41 M/ul (4.3-5.7); RDW 13.6 (10.5-15.0)
[2023-02-28 05:45] LABS: ALBUMIN 2.2 g/dL (3.4-5.0); ALBUMIN/GLOBULIN RATIO 0.5 (1.1-2.4); BILIRUBIN, TOTAL 0.8 ng/dL (0.2-1.0); BUN/CREATININE RATIO 8.23 (6.0-28.6); CALCIUM 8.8 mg/dL (8.5-10.1); CREATININE, SERUM 0.85 mg/dL (0.70-1.30); MAGNESIUM 1.6 mg/dL (1.8-2.4); PROTEIN, TOTAL 6.6 g/dL (6.4-8.2)
--- NOTE | 2023-02-28 06:29 | NUR ---
DISCUSSED PATIENT'S LABS WITH MD. ORDERS FOR MAG AND POTASSIUM REPLACEMENT RECEIVED.
--- NOTE | 2023-02-28 07:30 | NUR ---
REPORT RECIEVED FROM PYROMETALLURGICAL ENGINEER RN. NIGHT STAFF IN TO FINISH DOCUMENTATION AND START ELECTROLYTE REPLACEMENTS. PATIENT REMAINS ON PRECEDEX GTT AND IN RESTRAINTS FOR PATIENTS SAFETY WITH PULLING CORDS AND LINES. PATIENT HAD A CENTRAL LINE PLACED ON PYROMETALLURGICAL ENGINEER. PATIENT MUMBLING OUT THIS AM BUT STAFF ARE UNABLE TO COMPREHEND PATIENTS SPEECH.
--- NOTE | 2023-02-28 08:25 | NUR ---
RT COLLECTED COVID 19 SWAB AT THIS TIME WITH NO COMPLICATIONS.
[2023-02-28 08:56] LABS: INFLUENZA B NAA NEGATIVE (NEGATIVE); RESPIRATORY SYNCYTIAL VIR NAA NEGATIVE (NEGATIVE)
--- NOTE | 2023-02-28 09:30 | NUR ---
PATIENT ASSESSMENT COMPELTED. PATIENT REMAISN ON VAPOTHERM AT 30L AND 28%FIO2. PATIENT SPO2 97% AND RR- 30. PATIENT DOES HAVE OCC. ABD ACCESSORY MUSCLE USE. BREATH SOUNDS DIMINISHED. BOWEL TONES HYPOACTIVE. PATIENT IN WRIST RESTRAINTS. CMS INTACT. REPOSITIONED PATIENT FOR COMFORT. PATIENT STATED "IM GOING TO PUNCH YOU". REDIRECTED PATIENT AND EDUCATED TO NOT HARM THE STAFF AND ORIENTED TO PLACE AND SITUATION. PATIENT DID INFACT ATTEMPT TO PUNCH THIS RN WHILE REPOSITIONING PATIENT. PATIENTS SKIN INTACT. NO BREAK DOWN NOTED. SIEZURE PRECUATIONS IN PLACE. LINES INFUSING WITH NO ISSUES.
--- NOTE | 2023-02-28 09:36 | NUR ---
CCU ROUNDS. PT APPEARED TO BE SLEEPING. DID NOT ROUSE. PROVIDED SILENT PRAYER.
--- NOTE | 2023-02-28 10:00 | NUR ---
PATIENT GTT INCREASED PER ORDERS FOR TITRATION OF RASS +2. PATIENT IN RESTRAINTS FOR PATIENTS SAFETY. PATIENTS CALLED AND UPDATED ON PLAN OF CARE. NO QUESTIONS AT THIS TIME.
--- NOTE | 2023-02-28 11:00 | NUR ---
Patient discussed in 829 meeting and then twice more today with Dr. Perez. Pt may need an LTAC instead of a SNF on [place]. Pt is 100% service connected so [facility] I have had conversations with [facility] for the [facility] for [facility] to a SNF that also services pts with behavior health. I will contact the PR to check for placement to an LTAC as this is a different department. I called and left a message for Ilsa Bush, Keiry Decker. She is out of the office until Friday.
--- NOTE | 2023-02-28 11:02 | NUR ---
REFERRED BY LOILTA GARCIA FOR CONVERSATION WITH . AWARE OF SITUATION AND HAS NOW EXPECTATIONS FOR PT RECOVERY. RESPONSES SITUATIONALLY APPROPRIATE. FACILITATED LIFE REVIEW; LISTENED EMPATHEITCALLY; PROVIDED SUPPORTIVE PRESENCE; PROVIDED HASSOCK MAKER EDUCATION. DECLINED PRAYER IN ROOM. EXPRESSED APPRECIATION FOR VISIT. PROVIDED SILENT PRAYER.
--- NOTE | 2023-02-28 12:00 | NUR ---
UPDATED MD ROMANO THAT PHARMACY RECOMMENDED ZYPREXA IM FOR PATIENTS AGITATION TO WEAN OFF OF PRECEDEX GTT. MD ROMANO OKAYED THESE ORDERS. WILL WEAN PRECEDEX SOME PRIOR TO GIVING IM INJECTION D/T PRECAUTIONS WITH INCREASED SEDATION.
--- NOTE | 2023-02-28 12:40 | NUR ---
PATIENTS IN AT THE BEDSIDE FOR THE PAST SEVERAL HOURS. UPDATED ON PLAN OF CARE. ZYPREXA IM GIVEN WITH NO ISSUES. WILL CONTINUE TO TITRATE PRECEDEX DOWN IF POSSIBLE. PATIENT RESTING IN BED WITH RESTRRAINTS IN PLACE FOR LINE AND PATIENT SAFETY.
--- NOTE | 2023-02-28 14:00 | NUR ---
STAFF IN WITH PATIENT TO DO COMPLETE BED BATH, EGG CRATE PLACEMENT, AND LINEN CHANGE.
--- NOTE | 2023-02-28 15:00 | NUR ---
Received a return call from [facility] from the [place]. She is covering for Lisa. She requests the chart. They do use [facility] in [facility] and also [facility]. I will fax the chart. I asked if I need to work on the placement and she states they place the pt when criteria is met for an LTAC.
--- NOTE | 2023-02-28 16:15 | NUR ---
THIS RN HAS BEEN IN AT THE PATIENTS BEDSIDE DOING COMPLETE BEDBATH FOR PATIENT WITH MULTIPLE STAFF ASSIST AT TIMES. RESTRAINTS REMOVED AT THIS TIME FOR ROM WHILE RN WITH DIRECT VISUALIZATION OF LINES AND TUBES. PATIENT PROVIDED WITH CHLORHEXIDINE WIPE DOWN PER UNIT STANDARDS OF CARE. WASHED PATIENTS HAIR WITH SOAP AND CONDITIONER AND COMBED FOR APPROX 1 HR D/T MASSIVE KNOTS/TANGLES IN PATIENTS HAIR. PATIENTS HAIR NOW SMOOTH AND PLACED IN A BRAID. PATIENT TOLERATED WELL. CHANGED BEDDING D/T SOME OF THE CLEAN LINEN GETTING WET WITH WASHING PATIENTS HAIR AFTER BED BATH AND LINENS WERE COMPELTED. REPLACED PATIENTS RESTRAINT FOR HIS SAFETY. PATIENT DID ATTEMPT TO REMOVE CENTRAL CATH LINE ONCE. PATIENT IS MORE ALERT, BUT NOT FOLLOWING COMMANDS. PATIENT SAFETY IS A HIGH CONCERN. WILL CONTINUE TO INCRTEASE DIRECT VISUALIZATION AND PROVIDE CMS CHECKS AND REPOSITIONING.
--- NOTE | 2023-02-28 16:35 | NUR ---
called md almodovar to update about patients hr and bp and no answer. voicemail left for provider to contact staff.
--- NOTE | 2023-02-28 17:00 | NUR ---
PATIENTS HEART RHYTHM CONVERTED FROM A.FIB TO SINUS TACH AROUND 1645. PATIENTS RATE BETTER CONTROLLED AT THIS TIME. PATIENTS BLOOD PRESSURE TRENDING UP. WILL GIVE PRN MEDICATIONS IF NEEDED FOR CONTINUED ELEVATED BLOOD PRESSURE.
--- NOTE | 2023-02-28 17:45 | NUR ---
PATIENTS PRN BLOOD PRESSURE GIVEN. MD IN THE UNIT TO SEE PATIENTS AND UPDATED ON RHYTHM CHANGE. NO ORDERS FOR EKG. WILL USE TELE FOR CONTINUED MONITORING. NO NEW ORDERS FOR VITALS. WILL MONITOR BLOOD PRESSURE. BLOOD PRESSURE IMPROVED AT THIS TIME. PATIENT REPOSITIONED WITH PILLOW SUPPORT AND STATES "AWWW THATS BETTER".
--- NOTE | 2023-02-28 18:04 | NUR ---
PATIENTS HEART RHYTHM CONVERTED FROM A.FIB TO SINUS TACH AROUND 1645. PATIENTS RATE BETTER CONTROLLED AT THIS TIME. PATIENTS BLOOD PRESSURE TRENDING UP. WILL GIVE PRN MEDICATIONS IF NEEDED FOR CONTINUED ELEVATED HEART RATE.
--- NOTE | 2023-02-28 18:06 | OR ---
[facility] [address] [place], [place] [address] Signed DATE OF OPERATION: 02/27/2023 SURGEON: Alba Boone MD PREOPERATIVE DIAGNOSIS: Persistent ongoing delirium, need for central venous access. POSTOPERATIVE DIAGNOSIS: Persistent ongoing delirium, need for central venous access. PROCEDURE: Right internal jugular central venous catheter placement. ANESTHESIA: Intravenous sedation, propofol infusion and local 1% lidocaine. INDICATIONS: This 72-year-old man has longstanding alcoholism, was admitted to the hospital on February 24, 2023 with delirium and other maladies. He has had difficult IV access and combativeness with dislodgement of IVs and poor durability of peripheral IV access. On that basis, central venous catheterization was requested by Dr. Perez, hospitalist. The patient has no family available and is completely unable to provide consent, but due to the semi-emergent nature of need for central venous access, an administrative consent has been obtained. The risk of bleeding, infection, pneumothorax and so forth were acknowledged by all parties. FINDINGS: Dark nonpulsatile blood was noted from the right internal jugular vein. The catheter was placed without difficulty. A postprocedure chest x-ray shows the tip of the catheter in the superior vena cava. DESCRIPTION OF PROCEDURE: The patient was placed in the supine position in his ICU bed. Arms were secured distally and he was given intravenous sedation with propofol infusion by the collection clerk, Loli Fallon CRNA. This allowed for better manipulation of his head and neck. The head was turned to the left and the neck was prepared with a chlorhexidine solution and draped sterilely. Full protocol including mask gowns, gloves, etc., were used of course. A 1% lidocaine was injected over the right sternocleidomastoid muscle. Using the Seldinger technique, the right internal jugular vein was easily accessed on the first pass. Dark and nonpulsatile blood was noted. A flexible J-wire was passed Electronically Signed By: ALBA BOONE MD 02/28/23 1806 PATIENT NAME: CYNDI EDWARDS OPERATIVE REPORT DATE OF : 46 REPORT #: [id number] PHYSICIAN: ALBA BOONE MD PCP: MANI ANDERSON [facility] REPORT IS CONFIDENTIAL AND NOT TO BE RELEASED WITHOUT AUTHORIZATION [facility] [address] [place], [place] [address] Signed down the needle and the needle was removed. The site was incised with the enclosed 11 blade in the Arrow triple-lumen power catheter kit. The enclosed blue dilator was passed over the wire and subsequently a previously inspected and irrigated Arrow blue power triple-lumen catheter was passed over the wire. The wire was removed. Aspiration on the distal port showed dark nonpulsatile blood. The catheter was withdrawn. The distal port flushed with saline. The catheter was withdrawn a few cm and the white collar enclosed in a kit was used to secure the catheter to the skin as were the other areas of the catheter. An anti-infective adherent disc was then applied. He tolerated procedure well. Blood loss was less than a cc of 3 mL. A postprocedure chest x-ray was performed and reviewed by myself, which showed tip of the catheter in the superior vena cava. Alba Boone MD JM/MODL /[id number] cc: Dr. Perez Copies: ~ Electronically Signed By: ALBA BOONE MD 02/28/23 1806 PATIENT NAME: CYNDI EDWARDS OPERATIVE REPORT DATE OF : 46 REPORT #: [id number] PHYSICIAN: ALBA BOONE MD PCP: MANI ANDERSON [facility] REPORT IS CONFIDENTIAL AND NOT TO BE RELEASED WITHOUT AUTHORIZATION
--- NOTE | 2023-02-28 18:06 | CONS ---
[facility] [address] [place], [place] [address] Signed DATE OF CONSULTATION: 02/27/2023 REQUESTING PHYSICIAN: Dr. Perez. PROBLEM: Need for central venous access (delirium, combativeness, poor peripheral access). HISTORY: This 72-year-old man is admitted to the hospital having been found down for a number of hours at least today. He is found to have profound delirium and admitted directly to the intensive care unit. He was noted to have a 50+ year history of alcohol abuse and presented a week ago with seizure disorder. At that time, he was discharged home and started on Librium and Keppra. The seizure was considered alcohol-related. He has had other seizures in the distant past. He had a fall the evening prior to this. Evaluation in the emergency room included a CBC showing a white count of 19.9 and a lactic acid of 1. Alcohol level is undetectable. Potassium 2.8. Chest x-ray showed some haziness in the right lower lobe. A CT of the head showed no sign of injury. He was begun on Unasyn antibiotics. His active medications were found to be omeprazole, amlodipine, gabapentin, hydrocodone, chlordiazepoxide, and Keppra. Since his admission, he has remained rather delirious episodically in deep slumber and punctuated by episodes of combativeness. Care was assumed by Dr. Perez from Dr. Green. The patient had been maintained on a Precedex drip and underlying concerns for chronic dementia and possible Wernicke's encephalopathy also entertained. His O2 saturations have remained good. ABG is suggestive of possible worsening aspiration pneumonia with 65 PO2 and his O2 saturation of 95.4. Chemistries are generally normal. His liver enzymes are normal. White count elevated at 13.6, today with hematocrit 37.1. Patchy right mid lung field consolidation suggestive of aspiration was also noted. He was considered to have met sepsis criteria and has been treated as such. Request is made for a central venous catheter for continued administration of IV medications. He has tenuous peripheral access and has had dislodgement of several of his IVs related to his combativeness already. REVIEW OF SYSTEMS: Unable to contribute to the history. He is arousable with stimulation, but is incoherent. PHYSICAL EXAMINATION: GENERAL: A well worn older man who looks to be somewhat delirious, but not systemically toxic. NECK: Trachea appears midline. He has no jugular venous distention. Electronically Signed By: ALBA BOONE MD 02/28/23 1806 PATIENT NAME: CYNDI EDWARDS CONSULTATION DATE OF : 46 REPORT #: [id number] PHYSICIAN: ALBA BOONE MD PCP: MANI ANDERSON [facility] REPORT IS CONFIDENTIAL AND NOT TO BE RELEASED WITHOUT AUTHORIZATION [address] [address] Signed CHEST: Shows normal respiratory excursion. He has aimless elevation of his arms and some muscle tone of resistance. ABDOMEN: Nondistended and soft. EXTREMITIES: Show no clubbing, cyanosis, or edema. LABORATORY STUDIES: Today showed a white count of 13.6, platelets 176,000. Electrolytes normal. ASSESSMENT: The patient may benefit from central venous catheterization, possibly a right internal jugular catheter. Despite him being on a CT Precedex drip. He does have episodic combativeness for which impairment of additional IV access has been noted. A central venous line can be undertaken, but will need additional sedation, possibly propofol infusion versus fentanyl and Versed. He is unable to provide a reasonable informed consent, though is granted an administrative consent on the basis of the acuity of his need. MD EFRAIN Sam/MARVINL /[id number] Copies: ~ Electronically Signed By: ALBA BOONE MD 02/28/23 1806 PATIENT NAME: CYNDI EDWARDS CONSULTATION DATE OF : 46 REPORT #: [id number] PHYSICIAN: ALBA BOONE MD PCP: MANI ANDERSON [facility] REPORT IS CONFIDENTIAL AND NOT TO BE RELEASED WITHOUT AUTHORIZATION
[2023-02-28 20:14] LABS: MAGNESIUM 1.8 mg/dL (1.8-2.4); POTASSIUM 3.1 mmol/L (3.5-5.1)
--- NOTE | 2023-02-28 21:01 | NUR ---
SBAR REPORT RECEIVED FROM LOLITA AYALA. ALL EVENTS WERE OF THE DAY WERE DISCUSSED, PLAN OF CARE REVIEWED, AND ALL QUESTIONS AND CONCERNS WERE ADDRESSED. PATIENT JERRY IS FOUND TO BE MUMBLING WITH EYES CLOSED. HE LAUGHS INTERMITTENTLY AT GARBLED JOKES HE IS TELLING. HE RESPONDS TO VOICE AND WILL INTERMITTENTLY FOLLOW SIMPLE COMMANDS. VAPOTHERM IN USE AT 30L/ 28% FIO2, FREQUENT COUGHS ARE NOTED, SHEPPARD CATHETER REMAINS PATENT AND INTACT, HTN NOTED, BILATERAL RESTRAINTS REMAIN IN USE FOR PATIENT AND LINE SAFETY. ROUNDED WITH MD ROMANO AND DISCUSSED PLAN OF CARE. PAOLO INHIBITOR ORDERED FOR 2100 HOUR, SHEPPARD CATHETER CARE PERFORMED, III RIJ FLUSHED, ASPIRATED, AND SALINE LOCKED, REPOSITIONED ON TO RIFGHT SIDE, ORAL CARE PERFORMED, AND 2100 MEDS GIVEN.
--- NOTE | 2023-02-28 22:01 | NUR ---
WILL REPLACE POTASSIUM WITH 40MEQ. DISCUSSED PAOLO INHIBITOR AND POTASSIUM INTERACTIONS WITH MD ROMANO. PATIENT CONTINUES TO BE HTN. CURRENT BP 172/95 (119). WILL GIVE PRN HYDRALAZINE
--- NOTE | 2023-02-28 23:37 | NUR ---
SAFETY CHECK PERFROMED. PERSONAL ITEMS IN ROOM, VSS HTN NOTED
[2023-03-01] VITALS (25 sets, daily range): BP systolic 94–175; BP diastolic 69–110
--- NOTE | 2023-03-01 00:57 | NUR ---
RESTARTED PRECEDEX GTT FOR INCREASED RESTLESSNESS, TACHYCARDIA, AND HTN. PRN LORAZEPAM ADMINISTERED WITHOUT DESIRED RESULTS
--- NOTE | 2023-03-01 01:47 | NUR ---
PATIENT PARISIEN CONTINUES TO BE HTN, TACHYCARDIC, N/V, INCREASED RESTLESSNESS, AND DIAPHORETIC. PRN LORAZEPAM X2 ADMINISTERED, PRECEDEX GTT RESTARTED, MAINTENANCE FLUID STOPPED AND MD ROMANO NOTIFIED. RECEIVED A VERBAL ORDER TO GIVE PRN LASIX AND TO MAINTAIN MAINTANANCE FLUID OFF.
--- NOTE | 2023-03-01 02:13 | NUR ---
LABS DRAWN FROM CENTRAL LINE PER PROTOCOL. RT IN ROOM FOR ORAL SUCTION. PATIENT REPSOTIIONED ON HOB ELEVATED. PATIENT IS WARM TO TOUCH. AXILLARY TEMP 99.4 F. LASIX GIVEN PER ORDER. PRN COMPAZINE DUE TO PATIENT EMESIS. UPDATE PROVIDED TO DR. ROMANO INCLUDING PATIENT'S INCREASED WOB, INCREASED RR, VAPOTHEM SETTINGS AND Sp02 TREND, INCREASED TEMP, AND MENTAL STATUS. ORDERS TO RUN LABS AND REPORT FINDINGS.
[2023-03-01 02:56] LABS: BASOPHILS 0.2 % (0-2); EOSINOPHILS 0.3 % (0-6); HEMATOCRIT 34.7 % (35.0-50.0); HEMOGLOBIN 11.8 g/dL (12.0-18.0); LYMPHOCYTES 5.7 % (24-44); MCH 33.9 (27-36); MCV 99.5 fl (81-99); NEUTROPHILS 85.8 % (39-80); PLATELET COUNT 221 K/uL (140-440); RBC 3.49 M/ul (4.3-5.7); RDW 13.8 (10.5-15.0)
[2023-03-01 03:02] LABS: BASE EXCESS, BLOOD GAS -2.4 mmol/L (-2-2); HCO3, BLOOD GAS 21.3 mmol/L (22-26); O2 SATURATION, BLOOD GAS > 100.0 % (95.0-100.0); PCO2, BLOOD GAS 33.4 mmHg (35-45); PH, BLOOD GAS 7.42 (7.35-7.45); PO2, BLOOD GAS 157 mmHg (80-100); TOTAL CO2, BLOOD GAS 22.3
[2023-03-01 03:14] LABS: ANION GAP 15.2 (7-21); BUN/CREATININE RATIO 6.83 (6.0-28.6); CALCIUM 9.3 mg/dL (8.5-10.1); CREATININE, SERUM 1.17 mg/dL (0.70-1.30); POTASSIUM 3.2 mmol/L (3.5-5.1)
--- NOTE | 2023-03-01 04:16 | NUR ---
PATIENT ANDREW WAS NOTED TO BE SOMNOLENT, INCREASED WOB, INCREASED O2 DEMAND, AND FROTHY SPUTUM, AND WHEEZING APPRECIATED. HYPOTENSIVE AT APPROX 0245. PRECEDEX GTT STOPPED. RT, SCHOOL COOK, AND MD ROMANO CALLED TO BEDSIDE. SEVERAL INTERVENTIONS WERE COMPLETED INCLUDING EKG, CHEST XRAY, ALBUTEROL AND MUCOMYST TREATMENTS, ABG, LACTIC LEVEL, CBC, BMP, AND TROPONIN LEVEL. VAPOTERM INCREASED TO 30L AND 80% FOR APPROX 45 MINUTES ALL LABS WERE BENIGN. REPEAT POTASSIUM AFTER REPLACEMENT WAS 3.2. REPLACING K WITH 2 ADDITIONAL DOSES OF 20MEQ FOR A TOTAL OF 80MEQ FOR THE SHIFT. BP IS NOTED TO BE LABILE WITH SBP 94-170. PERSISTENT TACHYCARDIA. PATIENT JERRY IS NOW NOTED TO BE RESTLESS AND REQUIRING PRECEDEX TO BE RESTARTED AT 0.2MCG/KG/HR. VAPOTHERM REQUIREMENTS DECREASED TO ORIGINAL SETTINGS OF 30L AND 28%. ZOSYN ABX CHANGED TO [employer] FOR BROADER COVERAGE OF ASPIRATION PNA
--- NOTE | 2023-03-01 05:25 | NUR ---
PATIENT JERRY HAD A BUSY NIGHT. HE REMAINS WITH RESTRAINTS AND REQUIRES THE USE OF A PRECEDEX GTT FOR AGITATION AND LINE SAFETY DUE TO IMPULSIVITY. PLEASE SEE PREVIOUS NOTE FOR DETAILS OF SOMNOLENT EPISODE WITH LABILE BP AT 0240. MD ROMANO WAS CALLED TO BEDSIDE. NEURO- GARBLED SPEECH, APPROPRUATE WORDS INTERMITTENTLY, MOVES ALL EXTREMITIES, FOLLOWS COMMANDS AT TIMES, AUDITORY HALLUCINATIONS PRESENT EVIDENCED BY SEVERAL CONVERSATIONS PATIENT HAS HAD WITH SELF, RESTRAINTS FOR LINE SAFETY, NO EVIDENCE OF PAIN CARDIAC- SR, ST, AFIB. HYPOTENSION, HTN, LABILE BP, 1+ EDEMA BILATERAL UPPER EXTREMITIES, TMAX 99.4, DIAPHORESIS NOTED INTERMITTENTLY. HYDRALAZINE ADMINISTERED X 1 FOR SBP > 160, PAOLO INHIBITOR ADDED TO MED LIST RESP- VAPOTHERM REMAINS IN USE 30L AND 28% FIO2. MAX USE 30L AND 80%FI02 FOR APPROX 45 MINUTES DUE TO DESATURATION, COUGHING, AND INABILITY TO PROTECT AIRWAY. SEE PREVIOUS NOTE, BREATH SOUNDS CLEAR/DIM ON RIGHT SIDE, DIMINISHED ON LEFT. THICK/ WHITE/ YELLOW SPUTUM NOTED. EXTENSIVE ORAL CARE PERFORMED, ASPIRATION PNA CONFIRMED GI/- NPO DUE TO NEURO STATUS. CONSIDER TPN, N/V X1, PRN COMPAZINE GIVEN, NORMOACTIVE BOWEL TONES IN ALL 4 QUADRANTS, NO BOWEL MOVEMENT, PASSING FLATUS, INDWELLING SHEPPARD CATHETER 1L OUT. LASIX (40) ADMINISTERED. INT- SEE ASSESSMENT PLAN- CHANGED TO [employer] FOR BROADER COVERAGE FOR ASPIRATION PNA, CONTINUE TO MONITOR NEURO STATUS, REHAB PLACEMENT, TRY AND WEAN DOWN O2 REQUIREMENTS WHEN APPROPRIATE LDA- R III IJ, BILATERAL PERIPHERAL LINES
--- NOTE | 2023-03-01 07:45 | NUR ---
REPORT RECIEVED FROM PROCESS EXCELLENCE MANAGER RN. PATIENT RESTING IN BED REMAINS ON VAPOTHERM, PRECEDEX GTT, AND RESTRAINTS IN PLACE.
--- NOTE | 2023-03-01 08:00 | NUR ---
1 PORT OF CENTRAL LINE NOTED TO NOT BE FLUSHING THIS AM. WILL HAVE 2ND RN LOOK AT LINE AND ADDRESS THE ISSUE. LABS SENT THAT WERE DUE AT 0600.
[2023-03-01 08:02] LABS: BASOPHILS 0.2 % (0-2); EOSINOPHILS 0.1 % (0-6); HEMATOCRIT 35.8 % (35.0-50.0); HEMOGLOBIN 11.9 g/dL (12.0-18.0); LYMPHOCYTES 8.5 % (24-44); MCH 33.7 (27-36); MCHC 33.2 g/dl (30-36); MCV 101.5 fl (81-99); MONOCYTES 8.4 % (0-12); NEUTROPHILS 82.8 % (39-80); PLATELET COUNT 224 K/uL (140-440); RBC 3.53 M/ul (4.3-5.7); RDW 13.7 (10.5-15.0)
[2023-03-01 08:20] LABS: ALBUMIN 2.5 g/dL (3.4-5.0); ALBUMIN/GLOBULIN RATIO 0.53 (1.1-2.4); ANION GAP 15.4 (7-21); BILIRUBIN, TOTAL 0.7 ng/dL (0.2-1.0); BUN/CREATININE RATIO 6.72 (6.0-28.6); CREATININE, SERUM 1.19 mg/dL (0.70-1.30); MAGNESIUM 1.7 mg/dL (1.8-2.4); POTASSIUM 3.4 mmol/L (3.5-5.1); PROTEIN, TOTAL 7.2 g/dL (6.4-8.2)
--- NOTE | 2023-03-01 08:58 | NUR ---
THIS RN IN TO DO AM ASSESSMENT. PATIENT ON VAPOTHERM AT 30L AND 26% WITH SPO2 98%, RR EVEN AND UNLABORED AT 24. PATIENT HAS A PRODUCTIVE COUGH WITH LOTS OF SECRETIONS. BOWEL TONES ACTIVE. PATIENT HAS NOT HAD A BM SINCE ADMISSION, PATIENT HAS ALSO REMAINED NPO SINCE ADMISSION D/T COGNITIVE STATUS. PATIENT ALERT TO NAME AND PLACE. PATIENTS SPEECH STILL REMAINS VERY GHARBLED AND IS DIFFICULT TO UNDERSTAND. PATIENTS BROUGHT HIS DENTURES LAST NIGHT. WILL PUT THEM IN WHEN PATIENT IS MORE AWAKE AND SEE IF IT HELPS HIS SPEECH. PATIENT IN BILATERAL RESTRAINTS. CMS INTACT. RELEASED AND PROVIDED ROM IN BOTH ARMS. SHEPPARD CATHETER IN PLACE. CLEAR YELLOW URINE PRESENT. LABS DRAWN FROM CENTRAL LINE WITH NO ISSUES THIS AM.
[2023-03-01 09:15] LABS: DIGOXIN <0.2 ng/dL (0.9-2.0)
--- NOTE | 2023-03-01 11:30 | NUR ---
PATIENT HAS SCDS ORDERED, BUT THEY INCREASE PATIENTS AGITATION. UPDATED MD THAT SCDS ARE NOT IN PLACE D/T INCREASED AGITATION.
--- NOTE | 2023-03-01 11:51 | NUR ---
IN THE UNIT. ADDRESSED CONCERNS WITH ELECTROLYTES, PPI, AND VTE PHROPHALAXIS. MD GAVE VERBAL ORDERS. READ BACK ORDERS AND PLACED AND 2ND RN VERIFIED ORDERS. SPOKE WITH PATIENTS TO GIVE HER AN UPDATE APPROX 20 MINUTES AGO AND PATIENTS STATES PATIENT HAS HAD POOR NUTRITION THE PAST TWO MONTHS, BUT HAD A SMALL DINNER 02/23/23. ADDRESSED CONCERN OF NO NUTRITION SINCE THAT TIME OR BM. PATIENT DOES HAVE ACTIVE BOWEL TONES AT THIS TIME. MD STATES "I HOPE HE STARTS TO WAKE UP MORE AND WE CAN FEED HIM, OTHERWISE I WILL READDRESS THIS ISSUE ON FRIDAY" 03/03/23.
--- NOTE | 2023-03-01 12:13 | NUR ---
ROMANO IN TO SEE PATIENT AND HIS BP HAS SLOWY INCREASED AGAIN. PATIENTS BP 173/98. PER MD GIVE PRN DOSE OF HYDRALAZINE AND SCHEDULED VASOTEC THAT IS DUE AT THIS TIME AND MONITOR NEXT 30MIN-1 HOUR FOR RESPONSE.
--- NOTE | 2023-03-01 14:30 | NUR ---
PATIENT BLOOD PRESSURES CONTINUES TO BE ELEVATED. PER MD APPLY CATAPRESS PATCH. WILL PLACE AND MONITOR FOR IMPROVED BLOOD PRESSURE RESPONSE. NO NEW ORDERS AT THIS TIME. PATIENT RESTING COMFORTABLY IN BED. RESTRAINTS REMAINS IN PLACE, BUT REMOVED AND ROM PROVIDED AND REPOSITIONED PATIENT FOR COMFORT. PATIENT TOLERATED WELL.
--- NOTE | 2023-03-01 14:45 | NUR ---
CATHFLOW USED ON WHITE PORT OF CENTRAL LINE D/T LINE CLOTTED AND UNABLE TO FLUSH/ASPIRATE BLOOD. CATHFLOW 2MLS ADMINISTERED AND TAPED AND LEFT FOR 2 HOURS. AT THE 2 HOLUR REA THIS RN WAS ABLE TO ATTACH 10ML SYRINGE AND ASPIRATE FLUID AND 6MLS OF BLOOD. IV THEN FLUSHED WITH 10MLS NS WITH SOME SLUGGISHNESS NOTED. WILL HEPARIN LOCK IV PORT.
--- NOTE | 2023-03-01 16:00 | NUR ---
PATIENTS IN TO SEE HIM. UPDATED HER ON PLAN OF CARE AND PATIENTS STATUS TODAY. SPOKE WITH PATIENT AND TOLD HIM HIS WAS HERE. HE HAD GARBLED SPEECH AND TRYING TO TALK BUT UNABLE TO UNDERSTAND PATIENT. PATIENT IS NOT ALERT ENOUGH TO PUT HIS DENTURES IN. PER MD HE WOULD PREFER WE NOT LEAVE DENTURES IN.
--- NOTE | 2023-03-01 17:53 | NUR ---
PATIENT HAS SLEPT MOST OF THE DAY AND NOT INTERACTIVE TODAY. PATIENT HAS BEEN OFF PRECEDEX GTT SINCE 1100. PATIENT REMAINS DROWSY BUT DOES MOVE AND HAVE GARBLED SPEECH WHEN STAFF ENTER THE ROOM TO ASSESS PATIENT.
--- NOTE | 2023-03-01 20:26 | NUR ---
SBAR REPORT RECEIVED FROM LOLITA VELÁZQUEZ. ALL PERTINENT EVENTS OF THE DAY AND PLAN OF CARE WERE DISCUSSED. PATIENT PARISIEN IS NOTED TO BE RESTING COMFORTABLTY WITH EYES CLOSED, VSS AND WDL PER MONITOR, RESTRAINTS REMAIN IN USE FOR LINE AND PATIENT SAFETY, SHEPPARD CATHETER IS PATENT AND INTACT. ROUNDED WITH MD ROMANO. MAINTENANCE FLUIDS WILL BE CHANGED TO D5 NS AT 75CC PER HOUR FOR A GLUCOSE SOURCE DUE TO THE PATIENT BEING NPO AT THIS TIME. SAFETY CHECK PERFORMED
--- NOTE | 2023-03-01 21:58 | NUR ---
PATIENT JERRY CONTINUES TO APPEAR CALM AND COMFORTABLE. HE IS ABLE TO MOVE ALL EXTREMITIES. ROM PROVIDED AND RESTRAINTS RELEASED FOR ABOUT 5 MINUTES. NIHARIKA EDWARDS WAS NOTED TO TRY AND GRAB HIS LINES SO RESTRAINTS WERE RETIED.
--- NOTE | 2023-03-01 23:43 | NUR ---
PATIENT JERRY APPEARS COMFORTABLE AND RESPONDED WELL TO PRN HYDRALAZINE. CURRENT BP IS 120/92 MAP 97. HE CONTINUES TO HAVE WRIST RESTRAINTS. ROM PROVIDED, ORAL CARE PERFORMED, REPOSITIONED
[2023-03-02] VITALS (12 sets, daily range): BP systolic 125–169; BP diastolic 78–106
--- NOTE | 2023-03-02 02:48 | NUR ---
PATIENT JERRY WAS NOTED TO BE RESTLESS. TRYING TO GET OUT OF RESTRAINTS AND IS TUGGING ON LINES. PRN LORAZEPAM ADMINISTERED. WILL REASSSESS IN 30 MINUTES. REPOSITIONED WITH LOLITA SALAZAR AND WARM BLANKETS PROVIDED.
[2023-03-02 05:44] LABS: BASOPHILS 0.1 % (0-2); EOSINOPHILS 0.4 % (0-6); HEMATOCRIT 33.6 % (35.0-50.0); HEMOGLOBIN 11.4 g/dL (12.0-18.0); MCV 100.1 fl (81-99); MONOCYTES 7.5 % (0-12); PLATELET COUNT 235 K/uL (140-440); RBC 3.36 M/ul (4.3-5.7); RDW 13.9 (10.5-15.0)
[2023-03-02 06:04] LABS: ALBUMIN 2.3 g/dL (3.4-5.0); ALBUMIN/GLOBULIN RATIO 0.51 (1.1-2.4); ANION GAP 14.8 (7-21); BILIRUBIN, TOTAL 0.5 ng/dL (0.2-1.0); BUN/CREATININE RATIO 7.93 (6.0-28.6); CALCIUM 8.8 mg/dL (8.5-10.1); CREATININE, SERUM 1.26 mg/dL (0.70-1.30); POTASSIUM 3.8 mmol/L (3.5-5.1); PROTEIN, TOTAL 6.8 g/dL (6.4-8.2)
--- NOTE | 2023-03-02 06:23 | NUR ---
PATIENT JERRY APPEARS COMFORTABLE AND IS RESTING WITH EYES CLOSED. BILATERAL WRIST RESTRAINTS IN USE. ROM PROVIDED WITH NO COMPLICATIONS.
--- NOTE | 2023-03-02 06:25 | NUR ---
PATIENT JERRY HAD AN UNEVENTFUL NIGHT LAST NIGHT. HE CONTINUES TO BE ABLE TO NOD YES/NO APPROPRIATELY TO ORIENTATION QUESTIONS. HE WILL INTERMITTENTLY SPEAK SENTENCES HOWEVER MOST COMMUNICATIONS SOUND GARBLED. NEURO- MOVES ALL EXTREMITIES WITH NORMAL STRENTH, PERRL, SHAKES HEAD NO TO PAIN, GARBLED SPEECH , NEWHALEN RESP- VAPOTHERM IN USE 30L / 26% FIO2, O2 SATS REMAINED ABOVE 92% COUGHING, DIMINISHED BREATH SOUNDS BILATERAL LOWER LOBES, INTERMITTENT CRACKLES ON LEFT SIDE, ABLE TO COUGH HOWEVER NEEDS COACHING TO COUGH HARD
--- NOTE | 2023-03-02 07:30 | NUR ---
PT RESTING IN BED CURRENT RASS -1. UPPER EXTREMITY RESTRAINTS IN PLACE AND SECURE WITH CMS INTACT DISTALLY. RR EVEN AND UNLABORED WITHOUT LABORED BREATHING.
--- NOTE | 2023-03-02 08:03 | NUR ---
RT IN ROOM PROVIDING THERAPY.
--- NOTE | 2023-03-02 09:00 | NUR ---
ASSESSMENT COMPLETE - PT DEMONSTRATES ABILITY TO COUGH AND CLEAR AIRWAY WITH ENCOURAGMENT, THICK KINCAID SPUTUM SUCTIONED PRN. PT REPOSISTIONED TO LEFT SIDE WITH PILLOWS. ORAL CARE COMPLETE, PT TOLERATED WITH SOME RESISTANCE. URINE OUTPUT ADEQUATE AT THIS TIME. TRIPLE LUMEN IJ FLUSHED AFTER MED ADMINISTRATION, ALL LINES HAVE BRISK BLOOD RETURN - CAPPED, IVF INFUSING INTO WHITE LUMEN. RESTRAINTS IN PLACE, CMS INTACT.
[2023-03-02 09:54] LABS: VANCOMYCIN, TROUGH 19.6 ug/mL (5.0-20.0)
--- NOTE | 2023-03-02 10:00 | NUR ---
INTERMITANT RAPID BREATHING PATTERN NOTED, WITH ACCESORY USE AND BELLY BREATHING. SPO2 STABLE WITH THIS PATTERN CHANGE.
--- NOTE | 2023-03-02 10:48 | NUR ---
PT REPOSISTIONED TO RIGHT SIDE AFTER SUDDEN DECREASE IN SP02 TO LOW 80%. SUCTION WITH YAUNKER DID NOT ELICIT ANYTHING. WITH POSISTION CHANGE PT WAS ABLE TO COUGH AND CLEAR SOME SECREATIONS AND SP02 RECOVERED TO 97% ALMOST IMMEDIATLY. ARM RESTRAINTS REMAIN IN PLACE. RASS -1.
--- NOTE | 2023-03-02 11:39 | NUR ---
PTS UPDATE VIA PHONE CONVERSATION ON CURRENT STATUS AND CONTINUED PLAN OF CARE. ALL QUESTIONS ANSWERED.
--- NOTE | 2023-03-02 12:00 | NUR ---
ASSESSMENT COMPLETE - UNCHANGED FROM PREVIOUS. CONTINUING TO MONITOR URINE OUTPUT, DECREASING THIS SHIFT. PT REPOSISTIONED. RASS-1, RESPONDS TO STIMULI HOWEVER DOES NOT ANSWER QUESTIONS OR ENGAGE WITH STAFF, MOANS OCCASIONALLY. REMAINS ON 2LNC, BREATHING PATTERN NORMAL AT THIS TIME. RESTRAINTS REMAIN IN PLACE FOR PT AND LINE SAFETY.
--- NOTE | 2023-03-02 14:53 | NUR ---
MD NOTIFIED OF DECREASING URINE OUTPUT OVER LAST SEVERAL HOURS - VERBAL ORDER RECEIVED FOR 500ML BOLUS OF LR ONCE. ENTERED. WILL CONTINUE TO MONITOR.
--- NOTE | 2023-03-02 15:22 | EKG ---
[facility] [address] [facility] [place] [address] Signed Sinus tachycardia with premature atrial complexes Left posterior fascicular block Possible Inferior infarct , age undetermined Abnormal ECG When compared with ECG of 27-FEB-2023 09:15, Sinus rhythm has replaced Atrial fibrillation Left posterior fascicular block is now present Borderline criteria for Inferior infarct are now present Confirmed by MIRANDA ROMANO MD ([id number]) on 03/02/2023 3:22:40 PM Electronically Signed By: MIRANDA ROMANO 03/02/23 1522 PATIENT NAME: CYNDI EDWARDS Electrocardiogram DATE OF : 46 PHYSICIAN: MIRANDA ROMANO REPORT #: [id number] REPORT IS CONFIDENTIAL AND NOT TO BE RELEASED WITHOUT AUTHORIZATION
--- NOTE | 2023-03-02 15:31 | NUR ---
PT REPOSITIONED TO BACK IN HIGH FOWLERS POSISTION. ORAL CARE COMPLETE - PT ABLE TO CLEAR SOME SECREATIONS WITH SUCTION. SHEPPARD CARE COMPLETE. BOLUS STARTED PER ORDER FOR DECREASED URINE OUTPUT.
--- NOTE | 2023-03-02 17:06 | NUR ---
AT BEDSIDE, UPDATED ON POC. PT RESTING IN BED, ASSESSMENT UNCHANGED FROM PREVIOUS.
--- NOTE | 2023-03-02 18:30 | NUR ---
PT REPOSISTIONED TO RIGHT SIDE - CHG WIPE DOWN COMPLETE. VITAL SIGNS STABLE, CONTINUES TO HAVE STRONG ENOUGH COUGH TO CLEAR SECREATIONS. PASSIVE RANGE OF MOTION OF BOTH ARM PREFORMED. PT FLINCHES AND MOANS TO STIMULI BUT NOT AUDIBLE WORDS. SOFT RESTRAINTS OF UPPER EXTREMETIES IN PLACE WITH CMS DISTAL INTACT. URINE OUTPUT REMAINS MARGINAL AFTER BOLUS - MD AWARE. TELEPHONE ORDERS RECEIVED FOR 500ML LR BOLUS, INCREASE CONTINUOUS IVF TO 100ML HOUR AND BMP AT 2200. ORDERS ENTERED.
--- NOTE | 2023-03-02 20:54 | NUR ---
SBAR REPORT RECIEVED FROM LOLITA WANG. ALL EVENTS OF THE DAY AND PLAN OF CARE WAS DISCUSSED. PATIENT JERRY IS NOTED TO BE SOMNOLENT AND GARBLING WORDS. HE WAS ABLE TO SHAKE HIS HEAD UPO AND DOWN TO " IS YOUR NAME CYNDI". NC PRESENT AND IN USE ON 2 LITERS, BOLUS #2 COMPLETED WITH URINE OUTPUT MEASURED AND ENTERED INTO THE I&O CHART, SHEPPARD CARE PROVIDED, ORAL CARE PROVIDED, PM MEDS ADMINISTERED
[2023-03-02 23:21] LABS: ANION GAP 10.4 (7-21); BUN/CREATININE RATIO 8.39 (6.0-28.6); CALCIUM 8.6 mg/dL (8.5-10.1); CREATININE, SERUM 1.31 mg/dL (0.70-1.30); POTASSIUM 3.4 mmol/L (3.5-5.1)
[2023-03-03] VITALS (20 sets, daily range): BP systolic 130–198; BP diastolic 60–137
--- NOTE | 2023-03-03 00:32 | NUR ---
PATIENT JERRY IS NOTED TO HAVE A RASS OF -2. HE CONTINUES WITH MUMBLED SPEECH. UNABLE TO REPORT NAME NODDED YES TO KEEPING LIGHTS ON. ORAL CARE, CATHETER AND RENEA CARE PROVIDED. REPOSITIONED NOTED TO BE HTN. PRN HYDRALAZINE WILL BE ADMINISTERED.
--- NOTE | 2023-03-03 01:43 | NUR ---
PATIENT JERRY WAS TURNED ONTO HIS LEFT SIDE. HIS SPEECH IS NOW NOTED TO BE SLIGHTLY MORE UNDERSTANDABLE THAN EARLIER ON IN THE SHIFT. THE LIGHTS WERE DIMMED, TV TURNED OFF, AND THE DOOR WAS SHUT FOR AN ENHANCED SLEEPING ENVIRONMENT. INDWELLING SHEPPARD CATHETER REMAINS PATENT AND INTACT, III RIJ, IS PATENT AND ARE ALL ABLE TO BE ASPIRATED AND FLUSHED, SALINE LOCKED, SAFETY CHECK PERFORMED. REASSESSMENT OF BP AFTER PRN HYDRALAZINE PRODUCED DESIRED EFFECT CURRENT BP 144/94 (108)
--- NOTE | 2023-03-03 03:15 | NUR ---
PATIENT JERRY IS NOTED TO BE RESTING WITH EYES CLOSED. HE IS NOTED TO HAVE A STRONGER ABILITY TO CLEAR AIRWAY AND SECRETIONS WHEN LYING ON LEFT SIDE. CL CARE PROVIDED. SHEPPARD CATHETER EMPTIED. SAFETY CHECK PERFORMED VSS AND WDL PER MONITOR
--- NOTE | 2023-03-03 05:20 | NUR ---
PATIENT JERRY CONTINUES TO HAVE PERISITENT HTN. 0600 PAOLO INHIBITOR ADMINISTERED EARLY 0508- 186/100 0522- 166/ WILL REASSESS AT 0530
--- NOTE | 2023-03-03 05:38 | NUR ---
REASSESSMENT OF HTN AT 0530 163/114. WILL RECHECK AT 0600 FOR PRN HYDRALAZINE PATIENT JERRY APPEARED TO HAVE A RESTFUL NIGHT. HIS MENTATION, SOMNOLENCE, AND DEGREE OF MUTTERED/GARBLED SPEECH, AND BP LABILE. DISCUSSED WITH MD ROMANO. PLAN IS TO CONTINUE TO MONITOR. NEURO- GARBLED SPEECH, MOVES ALL EXTREMITIES, WRIST RESTRAINTS REMAIN FOR LINE SAFETY, PERRL, ABLE TO FOLLOW INTERMITTENT SIMPLE COMMANDS RESP- 2L NC, STRONG COUGH WHEN ON LEFT SIDE, WHITE/ YELLOW THICK SPUTUM, BREATH SOUNDS CLEAR/ DIM WITH INTERMITTENT CRACKLES, O2 SATS MAINTANED ABOVE 95% CARDIAC- SR- ST, PALPABLE PULSES, AFEBRILE, PERISITENT HTN, TRACE EDEMA NOTED IN HANDS GI/- ACTIVE BT APPRECIATED IN ALL 4 QUADRANTS, PASSING FLATUS, NO BM, NPO, INDWELLING SHEPPARD CATHETER REMAINS PATENT AND INTACT, CLEAR/ YELLOW URINE INT- SEE ASSESSMENT III RIJ REMAINS PATENT AND INTACT. ABLE TO FLUSH AND ASPIRATE ALL LINES WITH MINIMAL DIFFICULTY PLAN- ADDRESS NUTRITION STATUS TODAY
--- NOTE | 2023-03-03 06:00 | NUR ---
ROM PROVIDED, SITE AND SKIN ARE WDL
--- NOTE | 2023-03-03 06:01 | NUR ---
ROM PROVIDED, SKIN INTACT AND WDL
--- NOTE | 2023-03-03 08:00 | NUR ---
IV PUMP CLEARED, LINES CHECKED - R 3 LUMEN TO D5NS AT 100 FUSING WELL - SITE WNL, IV SL R UPPER ARM WNL. PT REMOVED FROM BILAT WRIST RESTRAINTS - ROM BOTH ARMS, PT WITH GEN EDEMA AND PAIN WITH ROM NOTED. PT AGITATED, GARBLES AND SPEECH IS NON UNDERSTANDABLE, DR ROMANO AT BEDSIDE. FEET WITH 2 + EDEMA, SHEPPARD TO GRAVITY WNL, PT DOES NOT OPEN EYES SPONTANEOUSLY, DOES NOT ANSWER ANY QUESTIONS OR STATE NAME, +2 RASS. ORAL CARE DONE, AND SHEPPARD CARE DONE BY THIS RN. RESTRAINTS PLACED AFTER BREAK.
--- NOTE | 2023-03-03 08:15 | NUR ---
PATIENT RESTING IN BED, 2L NC. RESTRAINTS ADJUSTED AND ROM IN ARMS PERFORMED- PATIENT VERY PAINFUL WITH ACTIVITY. PATIENT REPOSITIONED IN BED FOR COMFORT. ORAL AND SHEPPARD CARE PROVIDED, FACE AND HANDS WASHED. SHEPPARD EMPTIED AND CHARTED. NO OTHER NEEDS AT THIS TIME
--- NOTE | 2023-03-03 09:15 | NUR ---
Spoke with staff, pt is somewhat awake today. Attempted to speak with pt, unable to determine what he is saying. Plan for placement to a SNF or [facility]AC with [facility] when pt has met criteria for dc.
--- NOTE | 2023-03-03 10:07 | NUR ---
2 PERSON ASSIST TO REPOSITION PT TO RIGHT SIDE, RESTRAINTS REMOVED FOR BREAK - PT INCOMPREHENSIBLE, GRUMBLES WITH EYES CLOSED DOES NOT ANSWER ANY QUESTIONS. FEET FLOATED WITH PILLOW. CALL LIGHT IN REACH. CURTAIN OPEN, MUSIC ON AND FACE WASHED. IV ABX FUSING ON PUMP.
--- NOTE | 2023-03-03 10:49 | NUR ---
rn and pt to ct with xray staff. pt 5 person assist with slider board to ct. Linen changed on bed. pt agitated with move, would not hold still arms wrapped to secure pt to table, 1 mg ativan given at 11 am to help pt relax. pt continues to garble speech non comprehensible, and restraints were removed for trsf. at 1150. rn at side to help re assure pt. ct scan performed pt had some movement but scan was completed - pt moved max assist with slide board to clean bed and trsf back to ccu room - dr almodovar saw pt and talked with xray staff. upon return to room 1115 pt repositioned, and restraints removed and left off while pt was at side holding his hand, hes resp are even and he keeps eyes closed and mumbles. call light in reach,
--- NOTE | 2023-03-03 13:39 | NUR ---
at side pt resp rate 18, continues to have restraints off with redirection to not pull lines, bp increased, prn iv appresoline given. call light in reach, wide denies needs.
--- NOTE | 2023-03-03 14:06 | NUR ---
blood pressure improving after prn, 159/105, attempt to oral suction pt - he clampped down and did not allow oral care/suction - at side, restraints off.
--- NOTE | 2023-03-03 15:25 | NUR ---
pt amb to bathroom, bm noted void 200 ml dark urine, pt amb back to bed, call light in reach - dr almodovar here - aware of jaundice no changes.
--- NOTE | 2023-03-03 15:30 | NUR ---
[facility] call from [facility]. Pt will qualify for either LTAC or SNF. They will check with [place] for placement, updated [facility] will probably not take this pt as he can be combative. They are requiring [facility] a waiver to admit pts at this time. There is also a place in [place] they contract with.
--- NOTE | 2023-03-03 15:45 | NUR ---
pt cont. to be unsesponsive, speech garbleld sounds, keeps eyes closed, resp rate 29, hr 104 bp 184/109 vasotec just given within 40 min. will recheck. temp 98
--- NOTE | 2023-03-03 16:26 | NUR ---
DR PEGUERO HER WITH RN AT BEDSIDE FOR UPDATES AND NEW ORDERS, PT GETTING BEDBATH, SOMULENT - DID NOT AWAKEN TO DR ALYSSA TO ASSESS.
--- NOTE | 2023-03-03 16:41 | NUR ---
RN ASSIST WITH BED BATH, SKIN ASSESSMETN WNL.
--- NOTE | 2023-03-03 16:45 | NUR ---
DR HERE WITH RN AND PT, DR ASKED RN ABOUT PT BEING HERE AND GOALS OF CARE, RN LET HIM KNOW SHE WAS HERE AND DC PLANNERS WERE WORKING ON PLACEMENT, PT IS FULL CODE. ASKED ABOUT OUR SERVICES HERE IN AND RN DEFERED TO DC LOAN OFFICER ASSISTANT AND CALLED JESSICA TO LET HER KNOW THERE WERE QUESTIONS AND HE WOULD LIKE TO DISCUSS THESE WITH AND TEAM TOMORROW. NO CHANGES AT THIS TIME. PT REPOSITIONED. CALL LIGHT IN REACH - SOMULENT.
--- NOTE | 2023-03-03 16:47 | NUR ---
PATIENT RESTING IN BED, RESTRAINTS AND NC IN PLACE. BEDBATH PROVIDED. LINEN CHANGED TODAY. ROM PERFORMED AT THIS TIME. PATIENT VERY PAINFUL IN RIGHT HAND/ARM SPECIFICALLY. PATIENT REPOSITIONED IN BED FOR COMFORT.
--- NOTE | 2023-03-03 17:03 | NUR ---
Received a call from staff stating Dr. Tinajero wanting to discuss Hosice/comfort care. Called and spoke with and updated pt is 100% service connected and has stated she cannot provide care for pt at home. states he wants to discuss with family. Plan for 11:00 for meet tomorrow. I called and asked Micheline, , if she can be here tomorrow at 11. She will call pts sister and have her at the meeting also.
--- NOTE | 2023-03-03 18:38 | NUR ---
DR PEGUERO HERE ON FLOOR - UPDATES, AWARE OF VITALS I/O
--- NOTE | 2023-03-03 20:42 | NUR ---
CALLED TO UPDATE IN REGARDS TO HTN AND MEDICATIONS, NO NEW ORDERS AT THIS TIME.
--- NOTE | 2023-03-03 21:07 | NUR ---
ROUNDED WITH MD PEGUERO REGARDING RESISITENT HTN. CURRENT BP 185/103 (124). MD AWARE. PLAN IS TO MONITOR FOR NOW. CATAPRES DOSE INCREASED AND LASIX GIVEN DURING DAY SHIFT. MD DOES NOT WANT TO DECREASE SBP MORE THAN 10 POINTS PER DAY.
--- NOTE | 2023-03-03 21:23 | NUR ---
PATIENT RAFI IS NOTED TO BE HTN, GARBLED SPEECH, DISORIENTED X4, WILL CONTINUE TO MONITOR. PM CARES COMPLETED INCLUDING CATHETER CARE AND ORAL CARE
--- NOTE | 2023-03-03 21:58 | NUR ---
PATIENT JERRY IS NOTED TO BE SOMNOLENT WITH A RASS OF -2. HE IS DISORIENTED X 4, RESTRAINTS IN USE FOR LINE SAFETY, PERSISTENT HTN, ORAL CARE COMPLETED, SAFETY CHECK DONE
--- NOTE | 2023-03-03 22:04 | NUR ---
PRN HYDRALAZINE ADMINISTERED FOR BP 180/123 (138)
--- NOTE | 2023-03-03 22:43 | NUR ---
BP AFTER HYDRALAZINE 154/96 MAP 112
[2023-03-04] VITALS (10 sets, daily range): BP systolic 110–168; BP diastolic 65–111
[2023-03-04 00:57] LABS: BASOPHILS 0.3 % (0-2); EOSINOPHILS 0.1 % (0-6); HEMATOCRIT 33.7 % (35.0-50.0); HEMOGLOBIN 11.3 g/dL (12.0-18.0); LYMPHOCYTES 6.2 % (24-44); MCH 33.5 (27-36); MCHC 33.6 g/dl (30-36); MCV 99.7 fl (81-99); NEUTROPHILS 83.4 % (39-80); PLATELET COUNT 273 K/uL (140-440); RBC 3.38 M/ul (4.3-5.7)
[2023-03-04 01:06] LABS: ALBUMIN 2.3 g/dL (3.4-5.0); ALBUMIN/GLOBULIN RATIO 0.49 (1.1-2.4); BILIRUBIN, TOTAL 0.4 ng/dL (0.2-1.0); BUN/CREATININE RATIO 10.34 (6.0-28.6); CALCIUM 8.9 mg/dL (8.5-10.1); CREATININE, SERUM 1.45 mg/dL (0.70-1.30); MAGNESIUM 1.7 mg/dL (1.8-2.4)
--- NOTE | 2023-03-04 01:49 | NUR ---
PATIENT JERRY WAS NOTED TO HAVE FREQUENT ECTOPY BOTH PACS AND PVCS. 0600 LABS WERE DRAWN EARLY. K 3.0. MD PEGUERO NOTIFIED AND AN ORDER WAS PLACED FOR 60MEQS OF POTASSIUM. THIS WILL BE ADMINISTERED ROSAMARIA
--- NOTE | 2023-03-04 02:31 | NUR ---
PATIENT JERRY IS NOTED TO BE SOMNOLENT AND SONOROUS. RN POLLO GAVE HIM A BACK MASSAGE. CYNDI VERBALIZED "OW" AND "IT HURTS" TO BACK MASSAGE STIMULATION. HE NOW APPEARS COMFORTABLE AND MORE RELAXED. 20MEQ POTASSIUM BAG 1:3 BEING INFUSED. CENTRAL LINE LUMENS FLUSHED AND ASPIRATED WITH MINIMAL DIFFICULTY. D5NS INFUSING AT 100. INDWELLING SHEPPARD CATHETER PATENT AND INTACT. VSS, HTN NOTED 155/98 (116) AFEBRILE
--- NOTE | 2023-03-04 05:00 | NUR ---
CALLED RT LIBERTAD TO BEDSIDE FOR INCREASE WOB AND USE OF ACCESSORY MUSCLES. NT SUCTION REEQUESTED AND PERFORMED. LARGE AMOUNT OF THICK, YELLOW SPUTUM ASPIRATED. PATIENT PARISIEN APPEARS MORE COMFORTABLE. O2 SATS REMAINED ABOVE 96% ON 1L NC
--- NOTE | 2023-03-04 06:44 | NUR ---
PATIENT JERRY IS NOTED TO HAVE A RASS OF -2. INCREASED WOB WITH O2 SATS REMAINING ABOVE 95%. THERE IS A HOSPICE/ COMFORT CARE FAMILY MEETING SET UP TODAY AT 11AM. NEURO- RASS -1, MOVES ALL EXTREMITIES 4/5 STRENTH, MASSAGE GIVEN FOR STIFF BACK, PERRL CARDIAC- SR, ST, SA, +1 BILATERAL HANDS AND FEET, AFEBRILE, PALPABLE PULSES RESP- INCREASED WOB, NT SUCTION WITH LARGE MUCUS PLUG, SONOROUS, MOUTH BREATHER, BREATH SOUNDS DIMINISHED GI/- NO BM, BT HYPOACTIVE, MD AWARE. NUTRITION CONSULT IN PLACE INT- SEE ASSESSMENT IIIR IJ, R PERIPHERAL.
--- NOTE | 2023-03-04 07:30 | NUR ---
REPORT RECEIVED. PATIENT LAYING IN BED WITH HOB ELEVATED.
--- NOTE | 2023-03-04 08:00 | NUR ---
ASSESSMENT DONE. NOT FOLLOWING ANY COMMANDS. NON-VERBAL. WRIST RESTAINTS IN PLACE FOR PROTECTION OF CVC. O2 AT 1 L IN PATIENT MOUTH ANS IS MOUTH BREATHING RESP ARE LABORED. USING ABD ASSESSORY MUSCLES. SHEPPARD CATH WITH MINIMAL OUTPUT.
--- NOTE | 2023-03-04 08:55 | NUR ---
LAB DRAWN FROM LISA.
--- NOTE | 2023-03-04 10:00 | NUR ---
REPOSITIONED. REMAINS OBTUNDED.
--- NOTE | 2023-03-04 10:04 | NUR ---
ROUNDS. PT NOT RESPONSIVE. PROVIDED PRAYER.
--- NOTE | 2023-03-04 11:00 | NUR ---
DR. PEGUERO MEETING WITH FAMILY MEMBERS OF PATIENT, DISCHARGE PLANNING IN MEETING TOO. NO CHANGES IN PATIENT.
--- NOTE | 2023-03-04 11:10 | NUR ---
Met with Pts , daughter, sister and Dr. Tinajero. discussed with family pt is not showing any improvement and not responding. He would like to transfer pt to a SNF for comfort or end of life care. I updated the family I spoke with Jazmin and they will review the chart and possible accept if pt is no longer combative. Family are in agreement for placement and of pt to [facility] for comfort care. signed POLST form and in agreement for DNR/DNI and signed.
--- NOTE | 2023-03-04 11:45 | NUR ---
ACCUCHECK 192, 3 UNITS INSULIN GIVEN. ASSESSMENT DONE.
--- NOTE | 2023-03-04 11:50 | NUR ---
Received a call from GRETCHEN at [facility]. They have reviewed the chart and are calling the [facility] to request [facility] for [facility]. I am holding on the phone for the Integrated Service department which can auth placement to a SNF. At this time I have been on hold for 31 minutes.
--- NOTE | 2023-03-04 11:50 | NUR ---
TO MRI VIA W/C. RAYNE WITH FOR RN NOT TO GO WITH PATIENT.
--- NOTE | 2023-03-04 13:25 | NUR ---
REPORT TO MED SURG.
--- NOTE | 2023-03-04 13:30 | NUR ---
Received a return call from Sharon at the [place] [facility]. She will auth placement and requests GRETCHEN phone number at [facility].
--- NOTE | 2023-03-04 13:33 | NUR ---
TO MED-SURG VIA BED. REPORT GIVEN.
--- NOTE | 2023-03-04 13:40 | NUR ---
PT TRANSFERRED TO 124 PER ORDER. PT APPEARS COMFORTABLE, PT'S EYES ARE CLOSED, LYING IN BED, AND NONAGGITATED.
--- NOTE | 2023-03-04 15:03 | NUR ---
PT RESTING IN BED, NO SIGNS OF PAIN OR AGGITATION. EYES CLOSED. BED ALARM ON.
--- NOTE | 2023-03-04 15:54 | NUR ---
RT IN TO SEE PT, OXYGEN APPLIED.
--- NOTE | 2023-03-04 16:00 | NUR ---
Texted GRETCHEN and asked if they had received auth from the [facility]. He states they did. Their RN reviewed the chart and she would like to see pt 24 hrs without restraints and noncombative. I let him know pt was moved to the medical floor and remains nonresponsive. We will fu in the am.
--- NOTE | 2023-03-04 16:00 | NUR ---
pt's rings locked in safe in room.
--- NOTE | 2023-03-04 18:01 | NUR ---
PT RESTING IN BED WITH EYES CLOSED, NO S/S DISTRESS OR DISCOMFORT NOTED.
--- NOTE | 2023-03-04 19:15 | NUR ---
REPORT RECIEVED FROM THIAGO MCHUGH. pt RESTING IN THE BED. RR EVEN AND UNLABORED. BOARD UPDATED. CALL LIGHT WITHIN REACH.
--- NOTE | 2023-03-04 19:55 | NUR ---
THIS RN ON PHONE WITH DR PEGUERO REGARDING PLAN OF CARE OF pt. pt DNR/DNI PER CODE STATUS, RT LIBERTAD RECENTLY ON PHONE WITH MD AND RECEIVED ORDERS TO DC NEBS, DC O2, AND TO COMPLETE VS Q8H- THIS RN VERIFIED ORDERS WITH MD VIA READ BACK. PER MD, HOSPITAL CANNOT LABEL pt CODE STATUS "COMFORT CARE" D/T INSURANCE PURPOSES. POC IS FOR pt TO BE DC'D TO HOSPICE/COMFORT CARE PER MD WHEN pt LEAVES HOSPITAL TO POSSIBLE FACILITY. THIS RN ASKED IF DURING THE NIGHT FOR EXAMPLE O2 STATUS FALLS BELOW PARAMETERS ARE STAFF TO CALL MD. MD REPORTS THAT pt's PRIOR O2 SATS WHEN ON RA WAS AT 90%, CAN PLACE pt BACK ON O2 FOR COMFORT IF NEEDED. CALL MD IF CHANGE IN STATUS OCCURS. DISCUSSED WITH SPRING TACKER CODI AND PRIMARY RN LEATHA.
--- NOTE | 2023-03-04 21:00 | NUR ---
ASSESSMENT AND VITAL SIGNS DONE. pt REPSITIONED TO RIGHT SIDE WITH PILLOW UNDER LEFT HIP. SCHEDULED MEDICATIONS ADMINISTERED, SEE APR. pt RR 44, 2L OXY MASK PLACED ON pt FOR COMFORT. MONITORING RR WILL REASSESS. WHEN pt'S NAME WAS CALLED AND SHOULDER WAS SHAKEN pt GRIMANCED AND A TEAR ROLLED DOWN HIS CHEEK. pt NON-VERBAL. SHEPPARD CARE DONE. SHEPPARD EMPTIED. CALL LIGHT WTIHIN REACH.
--- NOTE | 2023-03-04 22:44 | NUR ---
CALL PLACED TO DR. PEGUERO ABOUT pt PAIN AND RR. NEW TELEPHONE ORDERS GIVEN FOR MORPHINE IV 2MG Q2P. REPEAT BACK METHOD FOR VERIFACTION. NEW ORDER PLACED IN APR.
--- NOTE | 2023-03-04 23:08 | NUR ---
PRN MORPHINE ADMINISTERED FOR PAIN AND SOB, SEE MAR. RR DROPPED FROM 44 TO 38. pt SOMULANT, NON-COMBATIVE, AND NON-VERBAL. pt REPOSITIONED ON PILLOWS UNDER BOTH HIPS. O2 SATURATION AT 89% ON 2L OXY MASK. ORAL CARE DONE. CALL LIGHT WITHIN REACH.
--- NOTE | 2023-03-05 00:22 | NUR ---
pt RESTING IN THE BED. RR 38. pt ABTUNDED. pt NON-VERBAL. pt NON-COMBATIVE. NO RESTRAINTS AT THIS TIME. CALL LIGHT WITHIN REACH. 2L OXY MASK ON pt.
--- NOTE | 2023-03-05 01:01 | NUR ---
pt REPOSITIONED WITH PILLOW UNDER RIGHT SIDE. PRN MORPHINE ADMINISTERED FOR SOB, SEE MAR. pt RESTING COMFORTABLE. CALL LIGHT WITHIN REACH.
--- NOTE | 2023-03-05 02:02 | NUR ---
THIS RN WENT INTO RM TO GIVE pt 0200 SCHEDULED MEDICATION. THIS RN DISCOVERED pt WAS NOT BREATHING. CEMETERY LABORER CALLED TO RM. THIS RN AND CHARGE AUSCULTATED LUNG SOUNDS. NO HR OR LUNG SOUNDS HEARD. DR. PEGUERO CALLED TO COMFIRM TIME OF . SUPER VISOR CALL FOR UPDATE.
--- NOTE | 2023-03-05 02:44 | NUR ---
pt CALLED AND UPDATED ON ABOUT pt'S . pt STATES SHE WOULD UPDATE THE SISTER ABOUT pt DIEING. pt SATED SHE WANTED THE pt TO GO TO [facility] AND THAT SHE DIDN'T WANT TO COME IN AND SEE HER LIKE THIS.
--- NOTE | 2023-03-05 02:46 | NUR ---
Family was called after pt passed. called [facility]. laurence went with
--- NOTE | 2023-03-05 04:01 | NUR ---
PASTORAL CARE SHAJI TO RN STATION AND INFOMRED THIS [facility] HERE TO TAKE pt TO FACILITY. pt OFF FLOOR AT THIS TIME. PERSONAL BELONGINGS TO GO WITH pt TO HOME.
== END 2023-03-05 02:02 | DRG 871 ==
LOC: ED 14:50 → MS 17:16 → CCU 17:16 → MS 03-04 13:35
PROVIDERS: Emergency Medicine; Internal Medicine; Surgery; ADMIT Family Medicine; ATTEND Internal Medicine
PROC: 3E03329 Introduction of Other Anti-infective into Peripheral Vein, Percutaneous Approach (ICD-10-PCS; 2023-02-24)
PROC: 02HV33Z Insertion of Infusion Device into Superior Vena Cava, Percutaneous Approach (ICD-10-PCS; principal; 2023-02-27)
DX: A41.9 Sepsis, unspecified organism (principal); J18.9 Pneumonia, unspecified organism; J69.0 Pneumonitis due to inhalation of food and vomit; E51.2 Wernicke's encephalopathy; Z51.5 Encounter for palliative care; Z66 Do not resuscitate; F10.20 Alcohol dependence, uncomplicated; F03.90 Unspecified dementia, unspecified severity, without behavioral disturbance, psychotic disturbance, mood disturbance, and anxiety; G40.909 Epilepsy, unspecified, not intractable, without status epilepticus; E87.6 Hypokalemia; E83.42 Hypomagnesemia
CPT/HCPCS: 36415; 36556; 36592; 36600; 70450; 70470; 71045; 80048; 80053; 80162; 80202; 80307; 81001; 82140; 82800; 82803; 83605; 83735; 84100; 84132; 84443; 84484; 85025; 85610; 87040; 87502; 93005; 93010; 94640; 94667; 94668; 94799; 96361; 96374; 96375; 99285-25; C9113; C9803; G0480; J0295; J0360; J0780; J1160; J1650; J1940; J1953; J2060; J2185; J2270; J2405; J2543; J2560; J2704; J2997; J3370; J3411; J3475; J3480; J3490; J7030; J7040; J7042; J7060; J7121; U0002